=== PATIENT | male | born 1945 | race Caucasian/White ===

== ENCOUNTER → 2019-08-19 07:50 | Outpatient (CLI) | payer MEDICARE, SELFPAY ==
--- NOTE | 2019-08-19 07:52 | CT_ITS ---
PROCEDURE: CT LUNG SCREENING CLINICAL INDICATION: CURRENT TOBACO USE Nicotine dependence, COMPARISON: CXR CHEST(2 VIEWS-NOT PORTABLE) from 05/13/2013 TECHNIQUE: The exam was performed on a GE Light Speed [address] scanner using 2.90 mGy CTDI. A low dose helical CT CHEST was performed on a multi-detector scanner. All CT scans at the facility use one or more dose reduction, viz: automated exposure control, ma/kV adjustment per patient size (including targeted exams where dose is matched to indication, i.e. head), or iterative reconstruction technique. The LDCT was performed in a facility that meets the criteria for the screening program. Data regarding this exam was submitted to ACR which is an approved registry. The order for this exam indicates that it came as a result of a lung cancer screening counseling shard decision-making visit that included all the elements required of such a visit including smoking cessation. The radiologist interpreting this exam meets the CMS criteria for the LDCT lung cancer screening program. The exam is reported using the Lung-RADS classification scale and reported to the ACR registry. NOTE: This study was performed for the specific purposes of lung cancer screening and is not an alternative to diagnostic chest CT. RADIATION DOSE: CTDI vol(CT dose Index-volume) = 2.90mG DLP (Dose Length Product) = 110.2 mGcm FINDINGS: COPD with scattered areas of scarring. There is an oval 1.6 x 0.7 cm noncalcified nodule within the superior segment of the right lower lobe. The margins are somewhat irregular. This is near the pleural surface. 4 mm noncalcified nodules present in the left upper lobe laterally image number 39. 3 mm noncalcified nodule right upper lobe image number 21. There are few calcified nodules and 2 other 2 mm nodular opacities in the right lower lobe which are nonspecific. OTHER FINDINGS: Coronary artery calcifications. IMPRESSION: Lung rads category 4A, suspicious nodule within the superior segment of the right lower lobe. Recommend PET-CT for further evaluation. If that is not performed then, would at least suggest a [address] follow-up without and with contrast. Dictated by: Santi Lucero MD 08/19/2019 08:34 Electronically signed by Santi Lucero MD in [place] 08/23/2019 11:16
== END ==
PROVIDERS: PCP Internal Medicine Adolescent Medicine; Visit Provider Internal Medicine Adolescent Medicine
DX: Z87.891 Personal history of nicotine dependence (principal); Z12.2 Encounter for screening for malignant neoplasm of respiratory organs

== ENCOUNTER → 2019-10-13 12:41 | Outpatient (CLI) | payer MEDICARE, SELFPAY ==
--- NOTE | 2019-10-13 13:38 | RESP.PFTSS ---
PATIENT UNABLE TO PERFORM SPIROMETRY. DR. MICHELLE PEREZ'S OFFICE WAS NOTIFIED. SPOKE WITH LIANET ABOUT DIFFICULTIES PATIENT WAS HAVING.
== END ==
PROVIDERS: PCP Internal Medicine Adolescent Medicine; Visit Provider Thoracic Surgery (Cardiothoracic Vascular Surgery)
DX: R59.0 Localized enlarged lymph nodes (principal); R91.1 Solitary pulmonary nodule

== ENCOUNTER → 2019-11-08 09:31 | Outpatient (CLI) | payer MEDICARE, SELFPAY ==
[2019-11-08 09:46] LABS: Basophils % 0.4 % (0.1-2.0); Eosinophils # 0.1 K/mm3 (0.0-0.4); Eosinophils % 1.7 % (0.1-12.0); Hematocrit 41.3 % (42.0-52.0); Lymphocytes # 1.1 K/mm3 (0.7-4.5); Lymphocytes % 18.1 % (10-50); Mean Corpuscular HGB Conc 33.9 g/dL (31.8-35.4); Mean Corpuscular Hemoglobin 30.6 pg (27.0-31.2); Mean Corpuscular Volume 90.1 fl (80-94); Mean Platelet Volume 7.9 fl (7.4-10.4); Monocytes # 0.5 K/mm3 (0.1-1.0); Monocytes % 7.5 % (1.7-9.3); Neutrophils # 4.4 K/mm3 (1.8-7.8); Neutrophils % 72.3 % (37.0-80.0); Platelet Count 251 K/mm3 (142-424); Red Blood Count 4.58 M/mm3 (4.60-6.20); White Blood Count 6.1 K/mm3 (4.8-10.8)
--- NOTE | 2019-11-08 09:46 | MR_ITS ---
PROCEDURE: MR HEAD/BRAIN WO/W CON CLINICAL INDICATION: LUNG CANCER Lung cancer, evaluate metastatic disease COMPARISON: No exams were available for comparison TECHNIQUE: Routine multiplanar multi echo sequences are performed without and with gadolinium enhancement. FINDINGS: No midline shift, mass effect, intracranial hemorrhage, or hydrocephalus evident. There are scattered periventricular and subcortical T2 white matter hyperintensities. These are nonspecific. Most common etiology would include ischemic gliotic change from microvascular disease. Migraine headache or demyelinating process included in the differential diagnosis. No restricted diffusion. No enhancing lesions. The cerebellopontine angles, cerebellum, and brainstem are unremarkable. The pituitary, optic chiasm, and corpus callosum have an unremarkable appearance. There are degenerative changes in the upper cervical spine which are incompletely imaged on this study with degenerative disc disease and bulging disc at C3-C4 and C4-C5 with canal stenosis and impingement upon the cord anteriorly. No sinus air-fluid level or mastoid effusion. There is mild mucosal thickening of the right maxillary sinus and ethmoid sinuses. IMPRESSION: 1. No acute intracranial findings. No convincing evidence of metastatic disease 2. Nonspecific T2 white matter hyperintensities which may be due to periventricular ischemic gliotic change. 3. Cervical spondylosis with canal stenosis at C3-C4 and C4-C5 with impingement upon the cord. This is incompletely imaged and may be better evaluated with cervical spine MRI if clinically warranted Dictated by: Santi Lucero MD 11/09/2019 10:44 Electronically signed by Santi Lucero MD in [place] 11/09/2019 10:44
[2019-11-08 10:02] LABS: Chloride 97 mmol/L (98-107); Potassium 4.4 mmoL/L (3.5-5.1); Sodium 138 mmol/L (136-145)
[2019-11-08 10:05] LABS: Alanine Aminotransferase 30 U/L (12-78); Albumin Level 4.4 g/dl (3.5-5.0); Albumin/Globulin Ratio 1.4 (1.1-1.8); Alkaline Phosphatase 101 U/L (38-126); Anion Gap 12.4 mEq/L (5-15); Aspartate Amino Transferase 34 U/L (17-59); Bilirubin,Total 0.7 mg/dl (0.2-1.3); Blood Urea Nitrogen 17 mg/dl (9-20); Calcium 9.6 mg/dl (8.4-10.2); Carbon Dioxide 33 mmol/L (22.0-30.0); Estimated Glomerular Filt Rate 54 ml/min (>60); GFR (African American) 65 ML/MIN (>60); Globulin 3.2 g/dL (1.3-3.2); Glucose 119 mg/dl (74-100); Total Protein,Serum 7.6 g/dl (6.3-8.2)
--- NOTE | 2019-11-08 10:57 | CT_ITS ---
PROCEDURE: CT ABDOMEN PELVIS WO/W CON CLINICAL INDICATION: LUNG CANCER COMPARISON: No exams were available for comparison TECHNIQUE: IV Contrast: 75ML OPTIRAY 350 Oral Contrast 450ml Redicat Axial images obtained with sagittal and coronal reformats. All CT scans at the facility use one or more dose reduction, viz: automated exposure control, ma/kV adjustment per patient size (including targeted exams where dose is matched to indication, i.e. head), or iterative reconstruction technique. FINDINGS: Lower thoracic images show coronary artery calcification as well as calcification of the root of the aorta. There is an irregular masslike lesion in the right lung base posteriorly 2.5 cm suspicious for neoplasm. Please see chest CT report. There are post cholecystectomy changes. No liver lesions are evident. The spleen and adrenal glands have an unremarkable appearance. No renal or ureteral calculi. There is a small amount of contrast within the collecting systems on the unenhanced images which could be from test injection. There are some scattered small retroperitoneal lymph nodes which are nonspecific. There is an area of dense calcification involving the body of the pancreas without obvious associated mass. No intestinal obstruction or free air. No evidence of appendicitis or diverticulitis. No pelvic mass or abnormal fluid collection. There is a linear area of sclerosis in the right femoral neck which could be due to prior surgery. Please correlate with patient's history. There are degenerative changes in the lumbar spine. The no bony destructive process evident. IMPRESSION: 1. No convincing evidence of metastatic disease within the abdomen or pelvis. 2. There are scattered small retroperitoneal lymph nodes which are nonspecific. 3. Sclerotic lesion in the right femoral neck which could be due to prior core decompression. Please correlate with history 4. Right lower lobe mass suspicious for neoplasm the Dictated by: Santi Lucero MD 11/10/2019 09:04 Electronically signed by Santi Lucero MD in [place] 11/10/2019 09:04
--- NOTE | 2019-11-08 10:57 | CT_ITS ---
PROCEDURE: CT CHEST WO/W CON CLINCAL INDICATION: LUNG CANCER Follow-up lung cancer COMPARISON: CT LUNG SCREENING from 08/19/2019 CT ABDOMEN PELVIS WO/W CON from 11/08/2019 TECHNIQUE: IV Contrast: 75ml Optiray 350 Axial images obtained with sagittal and coronal reformats. All CT scans at the facility use one or more dose reduction, viz: automated exposure control, ma/kV adjustment per patient size (including targeted exams where dose is matched to indication, i.e. head), or iterative reconstruction technique. FINDINGS: HEART AND MEDIASTINAL STRUCTURES: There has been interval development of mediastinal and right hilar adenopathy. Subcarinal lymph node is present which measures 3 point 4 x 2.2 cm. Right hilar node is present which measures 1.4 cm. There is an additional node along the posterior aspect of the right hilum inferiorly at 1.3 cm. Coronary artery calcifications are present. No evidence of aortic aneurysm or pulmonary embolus. LUNGS AND PLEURAL SPACES: Centrilobular emphysema with scattered areas of scarring. Stable 3 mm nodule right apex image 17 series 4. Spiculated nodule in the superior segment of the right lower lobe has enlarged measuring 16 by 10 mm previously 14 by 7 mm. This is in the superior segment of the right lower lobe and a subpleural in nature. There is a new 5 mm nodule in the right lower lobe inferiorly image 57 series 4 and a new parenchymal opacity in the right lung base posteriorly at 2.5 by 1.3 cm. A stable 3 mm nodules present in the right lung base medially and posteriorly no suspicious nodules on the left. No pleural effusions BONY STRUCTURES: No acute bony abnormalities apparent. UPPER ABDOMEN: See abdomen report ADDITIONAL FINDINGS: No other significant abnormalities. IMPRESSION: 1. Interval development of mediastinal and right hilar adenopathy with enlarging nodule in the superior segment of the right lower lobe consistent with lung carcinoma with hilar adenopathy. There are new nodules in the right lower lobe which could represent metastatic lesions as well as a 2.5 x 1.4 cm parenchymal opacity in the right lung base posterior laterally which could represent a metastatic focus. This could also be due to an inflammatory slow/infectious process as this was not present on 08/19/2019. Please correlate with patient's recent biopsy. 2. Centrilobular emphysema with COPD Dictated by: Santi Lucero MD 11/10/2019 08:52 Electronically signed by Santi Lucero MD in [place] 11/10/2019 08:52
== END ==
PROVIDERS: PCP Internal Medicine Adolescent Medicine; Visit Provider Internal Medicine Medical Oncology
DX: C34.31 Malignant neoplasm of lower lobe, right bronchus or lung (principal); Z03.89 Encounter for observation for other suspected diseases and conditions ruled out
CPT/HCPCS: 36415; 70553; 71270; 74178; 80053; 85025; A9576; Q9967

== ENCOUNTER → 2019-11-14 09:33 | Outpatient (CLI) | payer MEDICARE, SELFPAY ==
[2019-11-14] VITALS (8 sets, daily range): BP systolic 128–143; BP diastolic 70–84; PULSE 61–72; RESP 20; TEMP 36.7–36.9; O2SAT 90–95
== END ==
PROVIDERS: Visit Provider Internal Medicine Medical Oncology
DX: Z51.11 Encounter for antineoplastic chemotherapy (principal); C34.91 Malignant neoplasm of unspecified part of right bronchus or lung
CPT/HCPCS: 96413; 96415; 96417; J1642; J8501; J9045; J9181; Q0166

== ENCOUNTER 2019-11-15 09:34 | Outpatient (CLI) | payer MEDICARE, SELFPAY ==
[2019-11-15] VITALS (7 sets, daily range): BP systolic 117–157; BP diastolic 66–91; PULSE 59–66; RESP 18; TEMP 36.8; O2SAT 95
== END 2019-11-15 11:58 | disposition home or self-care (01) ==
LOC: INF 09:34
PROVIDERS: Visit Provider Internal Medicine Medical Oncology
DX: Z51.11 Encounter for antineoplastic chemotherapy (principal); C34.91 Malignant neoplasm of unspecified part of right bronchus or lung
CPT/HCPCS: 96413; 96415; J1642; J9181; Q0166

== ENCOUNTER 2019-11-16 09:25 | Outpatient (CLI) | payer MEDICARE, SELFPAY ==
[2019-11-16] VITALS (7 sets, daily range): BP systolic 132–155; BP diastolic 71–85; PULSE 53–60; RESP 18; TEMP 36.9; O2SAT 96
== END 2019-11-16 12:00 | disposition home or self-care (01) ==
LOC: INF 09:34
PROVIDERS: Visit Provider Internal Medicine Medical Oncology
DX: Z51.11 Encounter for antineoplastic chemotherapy (principal); C34.91 Malignant neoplasm of unspecified part of right bronchus or lung
CPT/HCPCS: 96413; 96415; J1642; J9181; Q0166

== ENCOUNTER 2019-11-25 09:02 | Outpatient (CLI) | payer MEDICARE, SELFPAY ==
[2019-11-25 08:59] VITALS: BMI 22.6
[2019-11-25 09:09] LABS: Basophils % 0.4 % (0.1-2.0); Eosinophils % 2.6 % (0.1-12.0); Hematocrit 37.3 % (42.0-52.0); Hemoglobin 12.5 g/dL (14.1-18.0); Lymphocytes # 0.9 K/mm3 (0.7-4.5); Lymphocytes % 53.5 % (10-50); Mean Corpuscular HGB Conc 33.6 g/dL (31.8-35.4); Mean Corpuscular Hemoglobin 30.4 pg (27.0-31.2); Mean Corpuscular Volume 90.5 fl (80-94); Mean Platelet Volume 8.2 fl (7.4-10.4); Monocytes # 0.1 K/mm3 (0.1-1.0); Monocytes % 4.7 % (1.7-9.3); Neutrophils # 0.7 K/mm3 (1.8-7.8); Neutrophils % 38.8 % (37.0-80.0); Platelet Count 88 K/mm3 (142-424); Red Blood Count 4.12 M/mm3 (4.60-6.20); Red Cell Distribution Width 12.3 % (11.5-17.5); White Blood Count 1.7 K/mm3 (4.8-10.8)
[2019-11-25 09:16] LABS: MANUAL DIFFERENTIAL MANUAL DIFFERENTIAL (MANUAL DIFF)
[2019-11-25 09:19] LABS: Alanine Aminotransferase 34 U/L (12-78); Albumin/Globulin Ratio 1.5 (1.1-1.8); Alkaline Phosphatase 108 U/L (38-126); Aspartate Amino Transferase 27 U/L (17-59); Bilirubin,Total 0.6 mg/dl (0.2-1.3); Blood Urea Nitrogen 25 mg/dl (9-20); Calcium 8.8 mg/dl (8.4-10.2); Creatinine Clearance Estimated 57 mL/min (50-200); Estimated Glomerular Filt Rate 73 ml/min (>60); GFR (African American) 88 ML/MIN (>60); Globulin 2.7 g/dL (1.3-3.2); Glucose 121 mg/dl (74-100); Total Protein,Serum 6.7 g/dl (6.3-8.2)
[2019-11-25 09:30] LABS: Eosinophils % 2 % (0-3); Lymphocytes % 48 % (10-50); Monocytes % 5 % (2-9); Neutrophils % 38 % (42-76); Total Cells Counted 100
[2019-11-25 09:31] LABS: Platelet Estimate Marked Decrease; RBC Morphology Normal
[2019-11-25 09:54] LABS: Anion Gap 9.8 mEq/L (5-15); Carbon Dioxide 29 mmol/L (22.0-30.0); Chloride 103 mmol/L (98-107); Potassium 3.8 mmoL/L (3.5-5.1); Sodium 138 mmol/L (136-145)
== END 2019-11-25 09:40 | disposition home or self-care (01) ==
LOC: INF 09:02
PROVIDERS: Visit Provider Internal Medicine Medical Oncology
DX: Z45.2 Encounter for adjustment and management of vascular access device (principal); C34.90 Malignant neoplasm of unspecified part of unspecified bronchus or lung
CPT/HCPCS: 80053; 85007; 85025; J1642

== ENCOUNTER 2019-12-05 09:02 | Outpatient (CLI) | payer MEDICARE, SELFPAY ==
[2019-12-05] VITALS (10 sets, daily range): BP systolic 142–165; BP diastolic 70–90; PULSE 60–93; RESP 18; TEMP 36.2; O2SAT 95–96; BMI 23.1
[2019-12-05 09:33] LABS: Basophils % 0.5 % (0.1-2.0); Hematocrit 35.3 % (42.0-52.0); Lymphocytes % 31.9 % (10-50); Mean Corpuscular HGB Conc 34.1 g/dL (31.8-35.4); Mean Corpuscular Hemoglobin 30.4 pg (27.0-31.2); Mean Corpuscular Volume 89.2 fl (80-94); Mean Platelet Volume 8.1 fl (7.4-10.4); Monocytes # 0.4 K/mm3 (0.1-1.0); Neutrophils # 1.6 K/mm3 (1.8-7.8); Neutrophils % 54.5 % (37.0-80.0); Platelet Count 383 K/mm3 (142-424); Red Blood Count 3.95 M/mm3 (4.60-6.20); Red Cell Distribution Width 12.9 % (11.5-17.5)
== END 2019-12-05 14:00 | disposition home or self-care (01) ==
LOC: INF 09:02
PROVIDERS: Visit Provider Internal Medicine Medical Oncology
DX: Z51.11 Encounter for antineoplastic chemotherapy (principal); C34.91 Malignant neoplasm of unspecified part of right bronchus or lung
CPT/HCPCS: 85025; 96413; 96415; 96417; J1642; J8501; J9022; J9045; J9181; Q0166

== ENCOUNTER 2019-12-06 08:57 | Outpatient (CLI) | payer MEDICARE, SELFPAY ==
[2019-12-06 09:09] VITALS: BP 130/68; PULSE 82; RESP 18; TEMP 36.8; O2SAT 95
[2019-12-06 09:44] VITALS: BP 141/72; PULSE 76; RESP 18; O2SAT 95
[2019-12-06 10:14] VITALS: BP 141/66; PULSE 66; RESP 18; O2SAT 96
[2019-12-06 10:44] VITALS: BP 150/76; PULSE 67; RESP 18; O2SAT 95
[2019-12-06 11:14] VITALS: BP 148/77; PULSE 64; RESP 18; O2SAT 96
[2019-12-06 11:35] VITALS: BP 135/67; PULSE 65; RESP 18; O2SAT 96
== END 2019-12-06 11:35 | disposition home or self-care (01) ==
LOC: INF 08:57
PROVIDERS: Visit Provider Internal Medicine Medical Oncology
DX: Z51.11 Encounter for antineoplastic chemotherapy (principal); C34.91 Malignant neoplasm of unspecified part of right bronchus or lung
CPT/HCPCS: 96413; 96415; J1642; J9181; Q0166

== ENCOUNTER 2019-12-07 09:02 | Outpatient (CLI) | payer MEDICARE, SELFPAY ==
[2019-12-07 09:08] VITALS: BP 147/66; PULSE 61; RESP 18; TEMP 36.1; O2SAT 100
[2019-12-07 09:37] VITALS: BP 131/80; PULSE 53; RESP 18; O2SAT 99
[2019-12-07 10:07] VITALS: BP 140/65; PULSE 48; RESP 18; O2SAT 99
[2019-12-07 10:37] VITALS: BP 144/72; PULSE 49; RESP 18; O2SAT 98
[2019-12-07 11:07] VITALS: BP 159/88; PULSE 57; RESP 18; O2SAT 99
[2019-12-07 11:24] VITALS: BP 151/72; PULSE 51; RESP 18; O2SAT 99
== END 2019-12-07 11:24 | disposition home or self-care (01) ==
LOC: INF 09:02
PROVIDERS: Visit Provider Internal Medicine Medical Oncology
DX: Z51.11 Encounter for antineoplastic chemotherapy (principal); C34.91 Malignant neoplasm of unspecified part of right bronchus or lung
CPT/HCPCS: 96413; 96415; J1642; J9181; Q0166

== ENCOUNTER 2019-12-22 09:15 | Outpatient (CLI) | payer MEDICARE, SELFPAY ==
[2019-12-22 09:26] VITALS: BMI 21.5
[2019-12-22 09:40] VITALS: TEMP 36.5
[2019-12-22 10:01] LABS: Basophils % 0.3 % (0.1-2.0); Eosinophils % 0.5 % (0.1-12.0); Hematocrit 32.8 % (42.0-52.0); Hemoglobin 10.8 g/dL (14.1-18.0); Lymphocytes # 0.9 K/mm3 (0.7-4.5); Lymphocytes % 60.8 % (10-50); Mean Corpuscular HGB Conc 32.9 g/dL (31.8-35.4); Mean Corpuscular Hemoglobin 29.4 pg (27.0-31.2); Mean Corpuscular Volume 89.4 fl (80-94); Mean Platelet Volume 8.5 fl (7.4-10.4); Monocytes # 0.3 K/mm3 (0.1-1.0); Monocytes % 21.6 % (1.7-9.3); Neutrophils # 0.3 K/mm3 (1.8-7.8); Neutrophils % 16.9 % (37.0-80.0); Platelet Count 131 K/mm3 (142-424); Red Blood Count 3.67 M/mm3 (4.60-6.20); Red Cell Distribution Width 13.8 % (11.5-17.5); White Blood Count 1.5 K/mm3 (4.8-10.8)
[2019-12-22 10:05] LABS: MANUAL DIFFERENTIAL MANUAL DIFFERENTIAL (MANUAL DIFF)
[2019-12-22 10:07] LABS: Chloride 99 mmol/L (98-107); Potassium 4.2 mmoL/L (3.5-5.1); Sodium 137 mmol/L (136-145)
[2019-12-22 10:10] LABS: Alanine Aminotransferase 34 U/L (12-78); Albumin Level 3.9 g/dl (3.5-5.0); Albumin/Globulin Ratio 1.4 (1.1-1.8); Alkaline Phosphatase 131 U/L (38-126); Anion Gap 13.2 mEq/L (5-15); Aspartate Amino Transferase 25 U/L (17-59); Bilirubin,Total 0.4 mg/dl (0.2-1.3); Blood Urea Nitrogen 17 mg/dl (9-20); Carbon Dioxide 29 mmol/L (22.0-30.0); Creatinine Clearance Estimated 55 mL/min (50-200); Estimated Glomerular Filt Rate 73 ml/min (>60); GFR (African American) 88 ML/MIN (>60); Globulin 2.8 g/dL (1.3-3.2); Total Protein,Serum 6.7 g/dl (6.3-8.2)
[2019-12-22 10:11] LABS: Calcium 9.1 mg/dl (8.4-10.2); Glucose 117 mg/dl (74-100)
[2019-12-22 10:28] LABS: Lymphocytes % 56 % (10-50); Monocytes % 4 % (2-9); Neutrophils % 14 % (42-76); Total Cells Counted 50
[2019-12-22 10:29] LABS: Hypochromasia 1+
[2019-12-22 10:30] LABS: Platelet Estimate Marked Decrease
[2019-12-22 10:40] LABS: Thyroid Stimulating Hormone 1.17 uIU/mL (0.465-4.68)
[2019-12-23 15:16] LABS: Adrenocorticotropic Hormone 12.6 pg/mL (7.2-63.3)
== END 2019-12-22 10:15 | disposition home or self-care (01) ==
LOC: INF 09:19
PROVIDERS: Visit Provider Internal Medicine Medical Oncology
DX: C34.91 Malignant neoplasm of unspecified part of right bronchus or lung (principal); Z45.2 Encounter for adjustment and management of vascular access device; Z79.899 Other long term (current) drug therapy; Z87.891 Personal history of nicotine dependence
CPT/HCPCS: 80053; 82024; 82533; 84443; 85007; 85025; J1642

== ENCOUNTER 2020-01-02 08:56 | Outpatient (CLI) | payer MEDICARE, SELFPAY ==
[2020-01-02] VITALS (9 sets, daily range): BP systolic 114–142; BP diastolic 71–74; PULSE 68–78; RESP 20; TEMP 36.7–36.9; O2SAT 95–98; BMI 22.3
[2020-01-02 09:13] LABS: Basophils # 0.1 K/mm3 (0-0.2); Basophils % 1.2 % (0.1-2.0); Chloride 101 mmol/L (98-107); Eosinophils % 0.1 % (0.1-12.0); Hematocrit 33.5 % (42.0-52.0); Hemoglobin 11.3 g/dL (14.1-18.0); Lymphocytes # 1.3 K/mm3 (0.7-4.5); Lymphocytes % 14.1 % (10-50); Mean Corpuscular HGB Conc 33.8 g/dL (31.8-35.4); Mean Corpuscular Hemoglobin 30.2 pg (27.0-31.2); Mean Corpuscular Volume 89.4 fl (80-94); Mean Platelet Volume 7.9 fl (7.4-10.4); Monocytes # 0.7 K/mm3 (0.1-1.0); Monocytes % 7.5 % (1.7-9.3); Neutrophils # 7.1 K/mm3 (1.8-7.8); Platelet Count 402 K/mm3 (142-424); Red Blood Count 3.75 M/mm3 (4.60-6.20); Red Cell Distribution Width 14.4 % (11.5-17.5); Sodium 137 mmol/L (136-145); White Blood Count 9.2 K/mm3 (4.8-10.8)
[2020-01-02 09:14] LABS: Potassium 4.3 mmoL/L (3.5-5.1)
[2020-01-02 09:16] LABS: Albumin/Globulin Ratio 1.4 (1.1-1.8); Alkaline Phosphatase 151 U/L (38-126); Anion Gap 11.3 mEq/L (5-15); Bilirubin,Total 0.4 mg/dl (0.2-1.3); Blood Urea Nitrogen 16 mg/dl (9-20); Calcium 9.2 mg/dl (8.4-10.2); Carbon Dioxide 29 mmol/L (22.0-30.0); Creatinine Clearance Estimated 46 mL/min (50-200); Estimated Glomerular Filt Rate 59 ml/min (>60); GFR (African American) 71 ML/MIN (>60); Globulin 2.8 g/dL (1.3-3.2); Glucose 119 mg/dl (74-100); Total Protein,Serum 6.8 g/dl (6.3-8.2)
[2020-01-02 09:17] LABS: Alanine Aminotransferase 21 U/L (12-78); Aspartate Amino Transferase 30 U/L (17-59)
== END 2020-01-02 13:35 | disposition home or self-care (01) ==
LOC: INF 08:56
PROVIDERS: Visit Provider Internal Medicine Medical Oncology
DX: Z51.11 Encounter for antineoplastic chemotherapy (principal); C34.31 Malignant neoplasm of lower lobe, right bronchus or lung
CPT/HCPCS: 80053; 85025; 96413; 96415; 96417; J1642; J8501; J9022; J9045; J9181; Q0166

== ENCOUNTER 2020-01-03 08:59 | Outpatient (CLI) | payer MEDICARE, SELFPAY ==
[2020-01-03] VITALS (7 sets, daily range): BP systolic 109–135; BP diastolic 57–73; PULSE 52–67; RESP 18; TEMP 36.6; O2SAT 97–98
== END 2020-01-03 11:28 | disposition home or self-care (01) ==
LOC: INF 08:59
PROVIDERS: Visit Provider Internal Medicine Medical Oncology
DX: Z51.11 Encounter for antineoplastic chemotherapy (principal); C34.31 Malignant neoplasm of lower lobe, right bronchus or lung
CPT/HCPCS: 96413; 96415; J1642; J9181; Q0166

== ENCOUNTER 2020-01-04 09:03 | Outpatient (CLI) | payer MEDICARE, SELFPAY ==
[2020-01-04] VITALS (8 sets, daily range): BP systolic 119–154; BP diastolic 64–90; PULSE 49–73; RESP 18–20; TEMP 36.4; O2SAT 98
== END 2020-01-04 11:35 | disposition home or self-care (01) ==
LOC: INF 09:03
PROVIDERS: Visit Provider Internal Medicine Medical Oncology
DX: Z51.11 Encounter for antineoplastic chemotherapy (principal); C34.31 Malignant neoplasm of lower lobe, right bronchus or lung
CPT/HCPCS: 96413; 96415; J1642; J9181; Q0166

== ENCOUNTER 2020-01-16 09:04 | Outpatient (CLI) | payer MEDICARE, SELFPAY ==
[2020-01-16 08:31] VITALS: BMI 21.6
[2020-01-16 08:49] LABS: Basophils % 0.8 % (0.1-2.0); Eosinophils % 2.9 % (0.1-12.0); Hematocrit 30.6 % (42.0-52.0); Hemoglobin 10.2 g/dL (14.1-18.0); Lymphocytes # 0.7 K/mm3 (0.7-4.5); Lymphocytes % 67.5 % (10-50); Mean Corpuscular HGB Conc 33.4 g/dL (31.8-35.4); Mean Corpuscular Hemoglobin 29.8 pg (27.0-31.2); Mean Corpuscular Volume 89.3 fl (80-94); Mean Platelet Volume 8.9 fl (7.4-10.4); Monocytes # 0.1 K/mm3 (0.1-1.0); Monocytes % 12.5 % (1.7-9.3); Neutrophils # 0.2 K/mm3 (1.8-7.8); Neutrophils % 16.4 % (37.0-80.0); Platelet Count 67 K/mm3 (142-424); Red Blood Count 3.42 M/mm3 (4.60-6.20); Red Cell Distribution Width 14.7 % (11.5-17.5)
[2020-01-16 08:53] LABS: MANUAL DIFFERENTIAL MANUAL DIFFERENTIAL (MANUAL DIFF)
[2020-01-16 09:02] LABS: Chloride 99 mmol/L (98-107); Potassium 4.1 mmoL/L (3.5-5.1); Sodium 135 mmol/L (136-145)
[2020-01-16 09:04] LABS: Blood Urea Nitrogen 20 mg/dl (9-20); Creatinine Clearance Estimated 55 mL/min (50-200); Estimated Glomerular Filt Rate 73 ml/min (>60); GFR (African American) 88 ML/MIN (>60)
[2020-01-16 09:05] LABS: Alanine Aminotransferase 51 U/L (12-78); Albumin Level 4.1 g/dl (3.5-5.0); Albumin/Globulin Ratio 1.5 (1.1-1.8); Alkaline Phosphatase 150 U/L (38-126); Anion Gap 11.1 mEq/L (5-15); Aspartate Amino Transferase 33 U/L (17-59); Bilirubin,Total 0.4 mg/dl (0.2-1.3); Carbon Dioxide 29 mmol/L (22.0-30.0); Globulin 2.8 g/dL (1.3-3.2); Glucose 129 mg/dl (74-100); Total Protein,Serum 6.9 g/dl (6.3-8.2)
--- NOTE | 2020-01-16 09:08 | CT_ITS ---
PROCEDURE: CT ABDOMEN PELVIS W CON CLINICAL INDICATION: LUNG CA Follow-up lung cancer COMPARISON: CT ABDOMEN PELVIS WO/W CON from 11/08/2019 TECHNIQUE: IV Contrast: 75ML OPTIRAY 350 Oral Contrast 450ml Redicat Axial images obtained with sagittal and coronal reformats. All CT scans at the facility use one or more dose reduction, viz: automated exposure control, ma/kV adjustment per patient size (including targeted exams where dose is matched to indication, i.e. head), or iterative reconstruction technique. FINDINGS: LOWER THORAX: There are coronary artery calcifications present ABDOMEN & PELVIS: Prior cholecystectomy. The liver, spleen, adrenal glands have an unremarkable appearance. No renal or ureteral calculi. There is a coarse calcification in the body of the pancreas which is not significantly changed. No intestinal obstruction or free air is evident. There is a mild amount of retained colonic feces. No evidence of appendicitis or diverticulitis. There are scattered diverticula within the colon. No intra-abdominal or pelvic mass or adenopathy. There is sclerosis in the right femoral neck once again noted. No bony destructive process. IMPRESSION: Overall no change with no acute finding. No convincing evidence of metastatic disease. Dictated by: Santi Lucero MD 01/17/2020 13:31 Electronically signed by Santi Lucero MD in [place] 01/17/2020 13:31
--- NOTE | 2020-01-16 09:08 | CT_ITS ---
PROCEDURE: CT CHEST W CON CLINCAL INDICATION: LUNG CA Follow-up lung cancer COMPARISON: CT CHEST WO/W CON from 11/08/2019 CT ABDOMEN PELVIS W CON from 01/16/2020 TECHNIQUE: IV Contrast: 75ml Optiray 350 Axial images obtained with sagittal and coronal reformats. All CT scans at the facility use one or more dose reduction, viz: automated exposure control, ma/kV adjustment per patient size (including targeted exams where dose is matched to indication, i.e. head), or iterative reconstruction technique. FINDINGS: HEART AND MEDIASTINAL STRUCTURES: Right hilar and mediastinal adenopathy has improved. No enlarged nodes are evident at this time. No hilar mass or mediastinal adenopathy. LUNGS AND PLEURAL SPACES: COPD. There is a 4 mm nodule in the right lung base which has not significantly changed. Previously noted parenchymal opacity in the right posterior costophrenic sulcus has nearly resolved with only mint some minimal parenchymal opacity in this region. There is a 4 mm nodule in the right lower lobe posteriorly image number 62 unchanged. Previously noted nodule posterior to the right lower lobe bronchus in the right lower lobe has decreased in size previously measuring 13 mm not apparent on today's exam. There is a residual nodular opacity in the superior segment of the right lower lobe which measures 6 mm previously measuring 11 mm. There is a 3 mm nodule in the left upper lobe centrally not significantly changed axial image number 32. No new nodules are evident. No effusions or infiltrates. BONY STRUCTURES: No acute bony abnormalities apparent. UPPER ABDOMEN: Unremarkable. ADDITIONAL FINDINGS: No other significant abnormalities. IMPRESSION: 1. Overall improvement in the mediastinal and hilar adenopathy and multiple pulmonary nodules consistent with improvement in the neoplasm.. 2. No new nodules evident. 3. COPD Dictated by: Santi Lucero MD 01/17/2020 13:21 Electronically signed by Santi Lucero MD in [place] 01/17/2020 13:21
[2020-01-16 09:12] LABS: Lymphocytes % 56 % (10-50); Monocytes % 32 % (2-9); Neutrophils % 12 % (42-76); Platelet Estimate Marked Decrease; RBC Morphology Normal; Total Cells Counted 25
== END 2020-01-16 10:35 | disposition home or self-care (01) ==
LOC: INF 09:05
PROVIDERS: PCP Internal Medicine Adolescent Medicine; Visit Provider Internal Medicine Medical Oncology
DX: C34.91 Malignant neoplasm of unspecified part of right bronchus or lung (principal)
CPT/HCPCS: 36415; 71260; 74177; 80053; 85007; 85025; J1642; Q9967

== ENCOUNTER 2020-01-31 09:01 | Outpatient (CLI) | payer MEDICARE, SELFPAY ==
[2020-01-31] VITALS (9 sets, daily range): BP systolic 125–163; BP diastolic 69–86; PULSE 55–83; RESP 18; TEMP 36.4; O2SAT 97–98; BMI 26.9
[2020-01-31 09:19] LABS: Basophils % 0.7 % (0.1-2.0); Eosinophils % 0.3 % (0.1-12.0); Hematocrit 32.6 % (42.0-52.0); Hemoglobin 10.9 g/dL (14.1-18.0); Lymphocytes % 16.5 % (10-50); Mean Corpuscular HGB Conc 33.5 g/dL (31.8-35.4); Mean Corpuscular Hemoglobin 30.9 pg (27.0-31.2); Mean Corpuscular Volume 92.1 fl (80-94); Mean Platelet Volume 7.9 fl (7.4-10.4); Monocytes # 0.4 K/mm3 (0.1-1.0); Monocytes % 7.7 % (1.7-9.3); Neutrophils # 4.3 K/mm3 (1.8-7.8); Neutrophils % 74.8 % (37.0-80.0); Platelet Count 262 K/mm3 (142-424); Red Blood Count 3.54 M/mm3 (4.60-6.20); Red Cell Distribution Width 14.9 % (11.5-17.5); White Blood Count 5.8 K/mm3 (4.8-10.8)
== END 2020-01-31 13:50 | disposition home or self-care (01) ==
LOC: INF 09:01
PROVIDERS: Visit Provider Internal Medicine Medical Oncology
DX: Z51.11 Encounter for antineoplastic chemotherapy (principal); C34.31 Malignant neoplasm of lower lobe, right bronchus or lung
CPT/HCPCS: 85025; 96413; 96415; 96417; J1642; J8501; J9022; J9045; J9181; Q0166

== ENCOUNTER 2020-02-01 08:53 | Outpatient (CLI) | payer MEDICARE, SELFPAY ==
[2020-02-01 08:58] VITALS: BP 122/67; PULSE 69; RESP 18; TEMP 36.8; O2SAT 98
[2020-02-01 09:35] VITALS: BP 121/60; PULSE 62; RESP 18; O2SAT 97
[2020-02-01 10:05] VITALS: BP 119/65; PULSE 57; RESP 18; O2SAT 98
[2020-02-01 10:35] VITALS: BP 130/67; PULSE 52; RESP 18; O2SAT 97
[2020-02-01 11:15] VITALS: BP 144/73; PULSE 57; RESP 18; O2SAT 98
== END 2020-02-01 11:20 | disposition home or self-care (01) ==
LOC: INF 08:53
PROVIDERS: Visit Provider Internal Medicine Medical Oncology
DX: Z51.11 Encounter for antineoplastic chemotherapy (principal); C34.91 Malignant neoplasm of unspecified part of right bronchus or lung
CPT/HCPCS: 96413; 96415; J1642; J9181; Q0166

== ENCOUNTER 2020-02-02 08:55 | Outpatient (CLI) | payer MEDICARE, SELFPAY ==
[2020-02-02 09:38] VITALS: BP 138/71; PULSE 48; RESP 18; O2SAT 96
[2020-02-02 10:00] VITALS: BP 134/79; PULSE 47; RESP 18
[2020-02-02 10:30] VITALS: BP 171/98; PULSE 52; RESP 18
[2020-02-02 11:25] VITALS: BP 158/81; PULSE 49; RESP 18
== END 2020-02-02 11:25 | disposition home or self-care (01) ==
LOC: INF 09:00
PROVIDERS: Visit Provider Internal Medicine Medical Oncology
DX: Z51.11 Encounter for antineoplastic chemotherapy (principal); C34.31 Malignant neoplasm of lower lobe, right bronchus or lung
CPT/HCPCS: 96413; 96415; J1642; J9181; Q0166

== ENCOUNTER 2020-02-23 08:29 | Outpatient (CLI) | payer MEDICARE, SELFPAY ==
[2020-02-23 08:34] VITALS: BMI 21.6
[2020-02-23 09:03] LABS: Basophils % 0.2 % (0.1-2.0); Eosinophils % 0.3 % (0.1-12.0); Hematocrit 27.7 % (42.0-52.0); Hemoglobin 9.5 g/dL (14.1-18.0); Lymphocytes % 16.8 % (10-50); Mean Corpuscular HGB Conc 34.4 g/dL (31.8-35.4); Mean Corpuscular Hemoglobin 31.5 pg (27.0-31.2); Mean Corpuscular Volume 91.4 fl (80-94); Mean Platelet Volume 8.1 fl (7.4-10.4); Monocytes # 0.5 K/mm3 (0.1-1.0); Monocytes % 7.9 % (1.7-9.3); Neutrophils # 4.3 K/mm3 (1.8-7.8); Neutrophils % 74.7 % (37.0-80.0); Platelet Count 369 K/mm3 (142-424); Red Blood Count 3.03 M/mm3 (4.60-6.20); Red Cell Distribution Width 15.1 % (11.5-17.5); White Blood Count 5.7 K/mm3 (4.8-10.8)
[2020-02-23 09:05] LABS: Chloride 101 mmol/L (98-107); Sodium 136 mmol/L (136-145)
[2020-02-23 09:08] LABS: Alanine Aminotransferase 17 U/L (12-78); Albumin Level 3.7 g/dl (3.5-5.0); Albumin/Globulin Ratio 1.3 (1.1-1.8); Alkaline Phosphatase 146 U/L (38-126); Aspartate Amino Transferase 25 U/L (17-59); Bilirubin,Total 0.4 mg/dl (0.2-1.3); Blood Urea Nitrogen 15 mg/dl (9-20); Calcium 8.7 mg/dl (8.4-10.2); Carbon Dioxide 30 mmol/L (22.0-30.0); Creatinine Clearance Estimated 50 mL/min (50-200); Estimated Glomerular Filt Rate 65 ml/min (>60); GFR (African American) 79 ML/MIN (>60); Globulin 2.9 g/dL (1.3-3.2); Glucose 122 mg/dl (74-100); Total Protein,Serum 6.6 g/dl (6.3-8.2)
[2020-02-23 09:39] LABS: Thyroid Stimulating Hormone 1.55 uIU/mL (0.465-4.68)
[2020-02-23 10:26] VITALS: BP 141/79; PULSE 78; RESP 18; TEMP 36.8; O2SAT 98
[2020-02-23 10:56] VITALS: BP 152/80; PULSE 69; RESP 18; O2SAT 98
[2020-02-23 11:26] VITALS: BP 154/79; PULSE 63; RESP 18; O2SAT 97
[2020-02-23 11:32] VITALS: BP 144/84; PULSE 67; RESP 18; O2SAT 97
[2020-02-25 10:52] LABS: Adrenocorticotropic Hormone 13.8
== END 2020-02-23 11:32 | disposition home or self-care (01) ==
LOC: INF 08:29
PROVIDERS: Visit Provider Internal Medicine Medical Oncology
DX: Z51.11 Encounter for antineoplastic chemotherapy (principal); C34.31 Malignant neoplasm of lower lobe, right bronchus or lung; Z79.899 Other long term (current) drug therapy
CPT/HCPCS: 80053; 82024; 82533; 84443; 85025; 96413; J1642; J9022

== ENCOUNTER 2020-03-15 10:17 | Outpatient (CLI) | payer MEDICARE, SELFPAY ==
[2020-03-15 10:19] VITALS: BMI 21.4
[2020-03-15 10:44] LABS: Basophils % 0.5 % (0.1-2.0); Eosinophils # 0.1 K/mm3 (0.0-0.4); Eosinophils % 1.9 % (0.1-12.0); Hematocrit 31.8 % (42.0-52.0); Hemoglobin 10.7 g/dL (14.1-18.0); Lymphocytes # 1.2 K/mm3 (0.7-4.5); Lymphocytes % 19.2 % (10-50); Mean Corpuscular HGB Conc 33.8 g/dL (31.8-35.4); Mean Corpuscular Hemoglobin 31.6 pg (27.0-31.2); Mean Corpuscular Volume 93.7 fl (80-94); Mean Platelet Volume 8.6 fl (7.4-10.4); Monocytes # 0.5 K/mm3 (0.1-1.0); Monocytes % 7.8 % (1.7-9.3); Neutrophils # 4.4 K/mm3 (1.8-7.8); Neutrophils % 70.6 % (37.0-80.0); Platelet Count 243 K/mm3 (142-424); Red Cell Distribution Width 14.2 % (11.5-17.5); White Blood Count 6.3 K/mm3 (4.8-10.8)
[2020-03-15 10:53] LABS: Chloride 101 mmol/L (98-107)
[2020-03-15 10:54] LABS: Potassium 4.3 mmoL/L (3.5-5.1); Sodium 135 mmol/L (136-145)
[2020-03-15 10:56] LABS: Alanine Aminotransferase 15 U/L (12-78); Albumin/Globulin Ratio 1.5 (1.1-1.8); Alkaline Phosphatase 128 U/L (38-126); Anion Gap 9.3 mEq/L (5-15); Aspartate Amino Transferase 24 U/L (17-59); Bilirubin,Total 0.6 mg/dl (0.2-1.3); Blood Urea Nitrogen 20 mg/dl (9-20); Carbon Dioxide 29 mmol/L (22.0-30.0); Creatinine Clearance Estimated 45 mL/min (50-200); Estimated Glomerular Filt Rate 59 ml/min (>60); GFR (African American) 71 ML/MIN (>60); Globulin 2.6 g/dL (1.3-3.2); Total Protein,Serum 6.6 g/dl (6.3-8.2)
[2020-03-15 10:57] LABS: Calcium 9.1 mg/dl (8.4-10.2); Glucose 111 mg/dl (74-100)
[2020-03-15 11:27] LABS: Thyroid Stimulating Hormone 2.16 uIU/mL (0.465-4.68)
[2020-03-15 11:51] VITALS: BP 114/72; PULSE 65; RESP 18; TEMP 36.2; O2SAT 98
[2020-03-15 12:21] VITALS: BP 117/79; PULSE 69; RESP 18; O2SAT 97
[2020-03-15 13:02] VITALS: BP 120/75; PULSE 63; RESP 18; O2SAT 98
== END 2020-03-15 13:02 | disposition home or self-care (01) ==
LOC: INF 10:17
PROVIDERS: Visit Provider Internal Medicine Medical Oncology
DX: Z51.11 Encounter for antineoplastic chemotherapy (principal); C34.90 Malignant neoplasm of unspecified part of unspecified bronchus or lung; Z79.899 Other long term (current) drug therapy
CPT/HCPCS: 80053; 82024; 82533; 84443; 85025; 96413; J1642; J9022

== ENCOUNTER 2020-04-06 09:57 | Outpatient (CLI) | payer MEDICARE, SELFPAY ==
[2020-04-06 10:17] LABS: Basophils % 0.4 % (0.1-2.0); Eosinophils # 0.1 K/mm3 (0.0-0.4); Hemoglobin 11.5 g/dL (14.1-18.0); Lymphocytes # 1.3 K/mm3 (0.7-4.5); Lymphocytes % 21.5 % (10-50); Mean Corpuscular HGB Conc 33.9 g/dL (31.8-35.4); Mean Corpuscular Hemoglobin 31.3 pg (27.0-31.2); Mean Corpuscular Volume 92.5 fl (80-94); Mean Platelet Volume 8.5 fl (7.4-10.4); Monocytes # 0.5 K/mm3 (0.1-1.0); Monocytes % 8.1 % (1.7-9.3); Neutrophils # 4.1 K/mm3 (1.8-7.8); Neutrophils % 68.1 % (37.0-80.0); Platelet Count 226 K/mm3 (142-424); Red Blood Count 3.67 M/mm3 (4.60-6.20); Red Cell Distribution Width 13.2 % (11.5-17.5); White Blood Count 6.1 K/mm3 (4.8-10.8)
[2020-04-06 10:19] LABS: Chloride 98 mmol/L (98-107); Potassium 4.4 mmoL/L (3.5-5.1); Sodium 137 mmol/L (136-145)
[2020-04-06 10:21] LABS: Blood Urea Nitrogen 16 mg/dl (9-20)
[2020-04-06 10:22] LABS: Alanine Aminotransferase 25 U/L (12-78); Albumin/Globulin Ratio 1.3 (1.1-1.8); Alkaline Phosphatase 131 U/L (38-126); Anion Gap 12.4 mEq/L (5-15); Aspartate Amino Transferase 30 U/L (17-59); Bilirubin,Total 0.6 mg/dl (0.2-1.3); Carbon Dioxide 31 mmol/L (22.0-30.0); Creatinine Clearance Estimated 45 mL/min (50-200); Estimated Glomerular Filt Rate 59 ml/min (>60); GFR (African American) 71 ML/MIN (>60); Globulin 3.1 g/dL (1.3-3.2); Total Protein,Serum 7.1 g/dl (6.3-8.2)
[2020-04-06 10:23] LABS: Calcium 9.3 mg/dl (8.4-10.2); Glucose 116 mg/dl (74-100)
[2020-04-06 10:53] LABS: Thyroid Stimulating Hormone 1.72 uIU/mL (0.465-4.68)
[2020-04-06 11:25] VITALS: BP 153/79; PULSE 59; RESP 20; TEMP 36.1; O2SAT 97
[2020-04-06 12:00] VITALS: BP 144/88; PULSE 60; RESP 18; O2SAT 98
[2020-04-06 12:35] VITALS: BP 158/91; PULSE 67; RESP 18; O2SAT 99
[2020-04-09 14:39] LABS: Adrenocorticotropic Hormone 17.9 pg/mL (7.2-63.3)
== END 2020-04-06 12:35 | disposition home or self-care (01) ==
LOC: INF 09:57
PROVIDERS: Visit Provider Internal Medicine Medical Oncology
DX: Z51.11 Encounter for antineoplastic chemotherapy (principal); C34.90 Malignant neoplasm of unspecified part of unspecified bronchus or lung; Z79.899 Other long term (current) drug therapy
CPT/HCPCS: 80053; 82024; 82533; 84443; 85025; 96413; J1642; J9022

== ENCOUNTER 2020-04-23 09:29 | Outpatient (CLI) | payer MEDICARE, SELFPAY ==
--- NOTE | 2020-04-23 | CT_ITS ---
PROCEDURE: CT CHEST W CON CLINCAL INDICATION: LUNG CANCER Follow-up lung cancer COMPARISON: CT CT CHEST W CON from 01/16/[address] ABDOMEN PELVIS W CON from 04/23/2020 TECHNIQUE: IV Contrast: 75ml Optiray 350 Axial images obtained with sagittal and coronal reformats. All CT scans at the facility use one or more dose reduction, viz: automated exposure control, ma/kV adjustment per patient size (including targeted exams where dose is matched to indication, i.e. head), or iterative reconstruction technique. FINDINGS: The small nodes are present in the aortopulmonic window which are probably not significantly changed. Small right pretracheal node at 1.1 cm is stable. Coronary artery calcifications and/or stents noted. Changes of COPD noted with biapical scarring. Stable 3 mm right upper lobe nodule. There is an 8 mm spiculated subpleural nodule in the superior segment of the right lower lobe. This has increased in size compared to the previous exam and is suspicious for neoplasm. There is a new subpleural nodule in the right lower lobe anteriorly measuring approximately 6 mm image 60. A stable fissural nodule present in the right lower lung zone image 50 at 4 mm. No lobar consolidation or collapse is evident. There are degenerative changes in the spine and shoulders. No bony destructive process. IMPRESSION: The subpleural nodule in the superior segment of the right lower lobe has increased in size and there is a new subpleural nodule in the right lower lobe laterally. Metastatic disease is considered. No change in the small mediastinal lymph nodes. Dictated by: Santi Lucero MD 04/24/2020 10:04 Santi Lucero MD in [place] 04/24/2020 10:04
--- NOTE | 2020-04-23 | CT_ITS ---
PROCEDURE: CT ABDOMEN PELVIS W CON CLINICAL INDICATION: LUNG CANCER Follow-up lung cancer COMPARISON: CT CT ABDOMEN PELVIS W CON from 01/16/2020 TECHNIQUE: IV Contrast: 75ML OPTIRAY 350 Oral Contrast None Axial images obtained with sagittal and coronal reformats. All CT scans at the facility use one or more dose reduction, viz: automated exposure control, ma/kV adjustment per patient size (including targeted exams where dose is matched to indication, i.e. head), or iterative reconstruction technique. FINDINGS: LOWER THORAX: Coronary artery calcifications are present. ABDOMEN & PELVIS: There has been a prior cholecystectomy. There is mild biliary ectasia. No focal liver lesion is evident. The spleen, adrenal glands, and kidneys have an unremarkable appearance aside from small left renal cortical cyst. No pancreatic mass evident. There are few small retroperitoneal lymph nodes which are unchanged. No intestinal obstruction or free air. There is colonic diverticulosis but no evidence of diverticulitis. No evidence of appendicitis. There is mild distention of the urinary bladder. There are mild osteoarthritic changes of the hips with degenerative changes noted of the spine. A longitudinal area of sclerosis is present in the right femoral shaft and neck possibly postsurgical. IMPRESSION: Overall no change with no acute finding with no convincing evidence of metastatic disease. Dictated by: Santi Lucero MD 04/24/2020 10:08 Santi Lucero MD in [place] 04/24/2020 10:08
[2020-04-23 09:13] VITALS: BMI 20.7
[2020-04-23 09:34] LABS: Basophils % 0.3 % (0.1-2.0); Eosinophils # 0.1 K/mm3 (0.0-0.4); Eosinophils % 1.4 % (0.1-12.0); Hematocrit 36.3 % (42.0-52.0); Lymphocytes # 1.2 K/mm3 (0.7-4.5); Lymphocytes % 17.5 % (10-50); Mean Corpuscular HGB Conc 33.1 g/dL (31.8-35.4); Mean Corpuscular Hemoglobin 30.8 pg (27.0-31.2); Mean Corpuscular Volume 93.2 fl (80-94); Mean Platelet Volume 8.3 fl (7.4-10.4); Monocytes # 0.5 K/mm3 (0.1-1.0); Neutrophils # 4.9 K/mm3 (1.8-7.8); Neutrophils % 73.8 % (37.0-80.0); Platelet Count 185 K/mm3 (142-424); Red Cell Distribution Width 12.9 % (11.5-17.5); White Blood Count 6.7 K/mm3 (4.8-10.8)
[2020-04-23 10:12] LABS: Chloride 101 mmol/L (98-107); Potassium 4.2 mmoL/L (3.5-5.1); Sodium 139 mmol/L (136-145)
[2020-04-23 10:14] LABS: Alanine Aminotransferase 22 U/L (12-78); Aspartate Amino Transferase 30 U/L (17-59); Blood Urea Nitrogen 20 mg/dl (9-20); Creatinine Clearance Estimated 51 mL/min (50-200); Estimated Glomerular Filt Rate 65 ml/min (>60); GFR (African American) 79 ML/MIN (>60)
[2020-04-23 10:15] LABS: Albumin Level 4.1 g/dl (3.5-5.0); Albumin/Globulin Ratio 1.5 (1.1-1.8); Alkaline Phosphatase 121 U/L (38-126); Anion Gap 13.2 mEq/L (5-15); Bilirubin,Total 0.5 mg/dl (0.2-1.3); Calcium 9.1 mg/dl (8.4-10.2); Carbon Dioxide 29 mmol/L (22.0-30.0); Globulin 2.8 g/dL (1.3-3.2); Glucose 120 mg/dl (74-100); Total Protein,Serum 6.9 g/dl (6.3-8.2)
== END 2020-04-23 11:00 | disposition home or self-care (01) ==
LOC: INF 09:30
PROVIDERS: PCP Internal Medicine Adolescent Medicine; Visit Provider Internal Medicine Medical Oncology
DX: C34.90 Malignant neoplasm of unspecified part of unspecified bronchus or lung (principal)
CPT/HCPCS: 71260; 74177; 80053; 85025; J1642; Q9967

== ENCOUNTER 2020-04-26 09:46 | Outpatient (CLI) | payer MEDICARE, SELFPAY ==
[2020-04-26 09:48] VITALS: BMI 21.7
[2020-04-26 10:30] VITALS: BP 149/79; PULSE 65; RESP 18; TEMP 36.3; O2SAT 97
[2020-04-26 10:45] VITALS: BP 135/95; PULSE 69; RESP 18
[2020-04-26 11:00] VITALS: BP 140/77; PULSE 59; RESP 18
[2020-04-26 11:09] LABS: Thyroid Stimulating Hormone 1.96 uIU/mL (0.465-4.68)
[2020-04-26 11:15] VITALS: BP 150/80; PULSE 57; RESP 18
[2020-04-26 11:30] VITALS: BP 157/81; PULSE 60; RESP 18
[2020-04-27 14:13] LABS: Adrenocorticotropic Hormone 15.4 pg/mL (7.2-63.3)
== END 2020-04-26 11:50 | disposition home or self-care (01) ==
LOC: INF 09:46
PROVIDERS: Visit Provider Internal Medicine Medical Oncology
DX: Z51.11 Encounter for antineoplastic chemotherapy (principal); C34.90 Malignant neoplasm of unspecified part of unspecified bronchus or lung; Z79.899 Other long term (current) drug therapy
CPT/HCPCS: 82024; 82533; 84443; 96413; J1642; J9022

== ENCOUNTER 2020-05-06 12:06 | Emergency (ER) | payer MEDICARE, SELFPAY ==
[2020-05-06 12:14] VITALS: BP 178/103; PULSE 86; RESP 20; O2SAT 96; BMI 23.1
[2020-05-06 12:30] VITALS: BP 162/95; PULSE 70; O2SAT 96
[2020-05-06 12:35] LABS: Basophils % 0.3 % (0.1-2.0); Eosinophils # 0.1 K/mm3 (0.0-0.4); Eosinophils % 1.9 % (0.1-12.0); Hematocrit 39.5 % (42.0-52.0); Hemoglobin 13.4 g/dL (14.1-18.0); Lymphocytes # 1.8 K/mm3 (0.7-4.5); Lymphocytes % 30.5 % (10-50); Mean Corpuscular HGB Conc 33.9 g/dL (31.8-35.4); Mean Corpuscular Hemoglobin 30.7 pg (27.0-31.2); Mean Corpuscular Volume 90.4 fl (80-94); Mean Platelet Volume 7.7 fl (7.4-10.4); Monocytes # 0.5 K/mm3 (0.1-1.0); Monocytes % 8.3 % (1.7-9.3); Neutrophils # 3.5 K/mm3 (1.8-7.8); Platelet Count 208 K/mm3 (142-424); Red Blood Count 4.37 M/mm3 (4.60-6.20); Red Cell Distribution Width 13.1 % (11.5-17.5); White Blood Count 5.9 K/mm3 (4.8-10.8)
[2020-05-06 12:39] LABS: Alanine Aminotransferase 26 U/L (12-78); Albumin Level 4.7 g/dl (3.5-5.0); Albumin/Globulin Ratio 1.3 (1.1-1.8); Alkaline Phosphatase 181 U/L (38-126); Anion Gap 15.6 mEq/L (5-15); Aspartate Amino Transferase 38 U/L (17-59); Bilirubin,Total 0.6 mg/dl (0.2-1.3); Blood Urea Nitrogen 20 mg/dl (9-20); Carbon Dioxide 31 mmol/L (22.0-30.0); Chloride 98 mmol/L (98-107); Creatinine Clearance Estimated 46 mL/min (50-200); Estimated Glomerular Filt Rate 59 ml/min (>60); GFR (African American) 71 ML/MIN (>60); Globulin 3.6 g/dL (1.3-3.2); Glucose 127 mg/dl (74-100); Potassium 4.6 mmoL/L (3.5-5.1); Sodium 140 mmol/L (136-145); Total Protein,Serum 8.3 g/dl (6.3-8.2)
[2020-05-06 12:59] VITALS: BP 155/84; PULSE 65; O2SAT 95
--- NOTE | 2020-05-06 13:05 | [facility].EDGENADL ---
ED Disposition Clinical Impression: Lightheadedness, Anxiety state, Essential hypertension Disposition: Home Health Service Condition on Discharge: Good Additional Instructions: Call your primary care provider tomorrow for follow-up. Continue current medications. Referrals: Jsoe Enrique Ha MD [Primary Care Provider] - - Critical Care Critical Care Time: No Attestation: On 05/06/20, the high probability of a clinically significant, sudden or life threatening deterioration of the following system(s) required my full and direct attention, intervention and personal management. The time I documented below is in addition to time spent performing reported procedures but includes the following listed in this critical care notation. Medical Decision Making - Medical Records Medical records reviewed: Yes: I reviewed the patient's medical records. - Thomas Inquiry Pt receiving controlled substance: No Vital Signs: 05/06/20 12:14 05/06/20 12:30 05/06/20 12:59 Temperature Temperature Source Pulse Rate Pulse Rate [Radial] 86 70 65 Respiratory Rate 20 Blood Pressure Blood Pressure [Right Arm] 178/103 H 162/95 H 155/84 H Blood Pressure Mean [Right Arm] 128 117 107 Blood Pressure Source Blood Pressure Source [Right Arm] Automatic Cuff Automatic Cuff Automatic Cuff Blood Pressure Position Blood Pressure Position [Right Arm] Sitting Sitting Sitting 02 Sat by Pulse Oximetry 96 96 95 Oxygen Delivery Method Room Air Room Air Room Air 05/06/20 13:39 Temperature 98.2 F Temperature Source Oral Pulse Rate 71 Pulse Rate [Radial] Respiratory Rate 20 Blood Pressure 166/91 H Blood Pressure [Right Arm] Blood Pressure Mean [Right Arm] Blood Pressure Source Automatic Cuff Blood Pressure Source [Right Arm] Blood Pressure Position Sitting Blood Pressure Position [Right Arm] 02 Sat by Pulse Oximetry Oxygen Delivery Method Room Air - Lab Data Lab results reviewed: Yes: I reviewed the patient's lab results. Lab Results 05/06/20 12:20: WBC 5.9, RBC 4.37 L, Hgb 13.4 L, Hct 39.5 L, MCV 90.4, MCH 30.7, MCHC 33.9, RDW 13.1, Plt Count 208, MPV 7.7, Neut % (Auto) 59.0, Lymph % (Auto) 30.5, [place] % (Auto) 8.3, Eos % (Auto) 1.9, Baso % (Auto) 0.3, Neut # (Auto) 3.5, Lymph # (Auto) 1.8, [place] # (Auto) 0.5, Eos # (Auto) 0.1, Baso # (Auto) 0.0 05/06/20 12:20: Sodium 140, Potassium 4.6, Chloride 98, Carbon Dioxide 31 H, Anion Gap 15.6 H, BUN 20, Creatinine 1.20, Estimated Creat Clear 46, Estimated GFR 59, Est GFR ( Amer) 71, Glucose 127 H, Calcium 10.0, Total Bilirubin 0.6, AST 38, ALT 26, Alkaline Phosphatase 181 H, Total Protein 8.3 H, Albumin 4.7, Globulin 3.6 H, Albumin/Globulin Ratio 1.3 Result diagrams: 05/06/20 12:20 05/06/20 12:20 Medical Decision Narrative: Blood pressure has come down on its own in the emergency department without treatment. He feels good and would like to be discharged. Advised to follow-up with primary care provider. General Adult HPI - General Chief complaint: Recheck/Abnormal Lab/Rx Stated complaint: high bp Time Seen by Provider: 05/06/20 12:55 Mode of Arrival: Ambulatory Limitations: No Limitations Description of Symptoms (Recalled from ER Triage Doc. by RN): Blood pressure is elevated and shaking. - History of Present Illness HPI narrative: States that he came in because he thought his blood pressure might be high. He says he began feeling funny in the head, and anxious. He did not have headache, visual disturbance, chest pain, shortness of breath, presyncope, or syncope. He says he now feels fine. He is on lisinopril for hypertension and did take it this morning. He did not check his blood pressure at home but just felt because of his symptoms that his blood pressure might be high. He has a lung cancer, he says he has been through chemotherapy and still gets some sort of medication through his port. He sees Dr. Mackenzie. He has a chronic tremor. He says he was
[2020-05-06 13:39] VITALS: BP 166/91; PULSE 71; RESP 20; TEMP 36.8; O2SAT 94
== END 2020-05-06 13:40 | disposition home health service (06) ==
PROVIDERS: Emergency Provider Emergency Medicine; PCP Internal Medicine Adolescent Medicine
DX: R42 Dizziness and giddiness (principal); F41.1 Generalized anxiety disorder; I10 Essential (primary) hypertension; J44.9 Chronic obstructive pulmonary disease, unspecified; E78.5 Hyperlipidemia, unspecified; G25.0 Essential tremor; C34.90 Malignant neoplasm of unspecified part of unspecified bronchus or lung; Z88.5 Allergy status to narcotic agent; Z87.891 Personal history of nicotine dependence; Z79.899 Other long term (current) drug therapy; Z90.49 Acquired absence of other specified parts of digestive tract
CPT/HCPCS: 80053; 85025; 99283

== ENCOUNTER 2020-05-17 09:43 | Outpatient (CLI) | payer MEDICARE, SELFPAY ==
[2020-05-17 09:45] VITALS: BMI 21.7
[2020-05-17 10:06] LABS: Basophils % 0.4 % (0.1-2.0); Eosinophils # 0.2 K/mm3 (0.0-0.4); Eosinophils % 2.5 % (0.1-12.0); Hematocrit 36.8 % (42.0-52.0); Hemoglobin 12.6 g/dL (14.1-18.0); Lymphocytes # 1.3 K/mm3 (0.7-4.5); Lymphocytes % 21.1 % (10-50); Mean Corpuscular HGB Conc 34.2 g/dL (31.8-35.4); Mean Corpuscular Hemoglobin 30.1 pg (27.0-31.2); Mean Corpuscular Volume 88.1 fl (80-94); Mean Platelet Volume 7.4 fl (7.4-10.4); Monocytes # 0.5 K/mm3 (0.1-1.0); Neutrophils # 4.3 K/mm3 (1.8-7.8); Platelet Count 200 K/mm3 (142-424); Red Blood Count 4.18 M/mm3 (4.60-6.20); Red Cell Distribution Width 13.1 % (11.5-17.5); White Blood Count 6.3 K/mm3 (4.8-10.8)
[2020-05-17 10:20] LABS: Chloride 101 mmol/L (98-107); Potassium 4.3 mmoL/L (3.5-5.1); Sodium 140 mmol/L (136-145)
[2020-05-17 10:22] LABS: Alanine Aminotransferase 26 U/L (12-78); Alkaline Phosphatase 141 U/L (38-126); Aspartate Amino Transferase 37 U/L (17-59); Bilirubin,Total 0.6 mg/dl (0.2-1.3); Blood Urea Nitrogen 20 mg/dl (9-20); Creatinine Clearance Estimated 46 mL/min (50-200); Estimated Glomerular Filt Rate 59 ml/min (>60); GFR (African American) 71 ML/MIN (>60)
[2020-05-17 10:23] LABS: Albumin Level 4.1 g/dl (3.5-5.0); Albumin/Globulin Ratio 1.3 (1.1-1.8); Anion Gap 12.3 mEq/L (5-15); Calcium 9.4 mg/dl (8.4-10.2); Carbon Dioxide 31 mmol/L (22.0-30.0); Globulin 3.1 g/dL (1.3-3.2); Glucose 126 mg/dl (74-100); Total Protein,Serum 7.2 g/dl (6.3-8.2)
[2020-05-17 11:20] VITALS: BP 128/74; PULSE 57; RESP 18; TEMP 35.8; O2SAT 98
[2020-05-17 11:35] VITALS: BP 146/77; PULSE 57; RESP 18
[2020-05-17 11:50] VITALS: BP 140/80; PULSE 57; RESP 18
[2020-05-17 12:05] VITALS: BP 150/86; PULSE 59; RESP 18
[2020-05-17 12:20] VITALS: BP 161/88; PULSE 60; RESP 18
[2020-05-18 17:21] LABS: Adrenocorticotropic Hormone 17.1 pg/mL (7.2-63.3)
== END 2020-05-17 12:35 | disposition home or self-care (01) ==
LOC: INF 09:43
PROVIDERS: Visit Provider Internal Medicine Medical Oncology
DX: Z51.11 Encounter for antineoplastic chemotherapy (principal); C34.90 Malignant neoplasm of unspecified part of unspecified bronchus or lung; R53.83 Other fatigue
CPT/HCPCS: 80053; 82024; 82533; 84443; 85025; 96413; J1642; J9022

== ENCOUNTER 2020-06-07 09:00 | Outpatient (CLI) | payer MEDICARE, SELFPAY ==
[2020-06-07 09:03] VITALS: BMI 22.4
[2020-06-07 09:12] LABS: Basophils % 0.3 % (0.1-2.0); Eosinophils # 0.3 K/mm3 (0.0-0.4); Eosinophils % 3.7 % (0.1-12.0); Hematocrit 37.4 % (42.0-52.0); Hemoglobin 12.8 g/dL (14.1-18.0); Lymphocytes # 1.8 K/mm3 (0.7-4.5); Lymphocytes % 25.2 % (10-50); Mean Corpuscular HGB Conc 34.3 g/dL (31.8-35.4); Mean Corpuscular Hemoglobin 30.6 pg (27.0-31.2); Mean Corpuscular Volume 89.3 fl (80-94); Mean Platelet Volume 8.1 fl (7.4-10.4); Monocytes # 0.7 K/mm3 (0.1-1.0); Monocytes % 9.2 % (1.7-9.3); Neutrophils # 4.5 K/mm3 (1.8-7.8); Neutrophils % 61.7 % (37.0-80.0); Platelet Count 196 K/mm3 (142-424); Red Blood Count 4.19 M/mm3 (4.60-6.20); Red Cell Distribution Width 13.1 % (11.5-17.5); White Blood Count 7.3 K/mm3 (4.8-10.8)
[2020-06-07 09:17] LABS: Chloride 103 mmol/L (98-107)
[2020-06-07 09:18] LABS: Potassium 4.1 mmoL/L (3.5-5.1); Sodium 141 mmol/L (136-145)
[2020-06-07 09:20] LABS: Alanine Aminotransferase 24 U/L (12-78); Alkaline Phosphatase 126 U/L (38-126); Anion Gap 13.1 mEq/L (5-15); Aspartate Amino Transferase 30 U/L (17-59); Bilirubin,Total 0.6 mg/dl (0.2-1.3); Blood Urea Nitrogen 24 mg/dl (9-20); Carbon Dioxide 29 mmol/L (22.0-30.0); Creatinine Clearance Estimated 44 mL/min (50-200); Estimated Glomerular Filt Rate 54 ml/min (>60); GFR (African American) 65 ML/MIN (>60)
[2020-06-07 09:21] LABS: Albumin Level 4.1 g/dl (3.5-5.0); Albumin/Globulin Ratio 1.4 (1.1-1.8); Calcium 9.6 mg/dl (8.4-10.2); Glucose 128 mg/dl (74-100); Total Protein,Serum 7.1 g/dl (6.3-8.2)
[2020-06-07 10:20] VITALS: BP 124/73; PULSE 60; RESP 20; TEMP 36.4; O2SAT 97
[2020-06-07 10:35] VITALS: BP 142/78; PULSE 63; RESP 18
[2020-06-07 10:50] VITALS: BP 136/87; PULSE 60; RESP 18
[2020-06-07 11:05] VITALS: BP 168/93; PULSE 65; RESP 18
[2020-06-07 11:35] VITALS: BP 155/85; PULSE 61; RESP 18; O2SAT 98
== END 2020-06-07 11:35 | disposition home or self-care (01) ==
LOC: INF 09:00
PROVIDERS: Visit Provider Internal Medicine Medical Oncology
DX: Z51.11 Encounter for antineoplastic chemotherapy (principal); C34.91 Malignant neoplasm of unspecified part of right bronchus or lung
CPT/HCPCS: 80053; 85025; 96413; J1642; J9022

== ENCOUNTER 2020-06-25 08:44 | Outpatient (CLI) | payer MEDICARE, SELFPAY ==
[2020-06-25 08:34] VITALS: BMI 22.4
[2020-06-25 09:09] LABS: Basophils % 0.6 % (0.1-2.0); Eosinophils # 0.3 K/mm3 (0.0-0.4); Hematocrit 39.8 % (42.0-52.0); Hemoglobin 12.8 g/dL (14.1-18.0); Lymphocytes # 1.6 K/mm3 (0.7-4.5); Lymphocytes % 23.4 % (10-50); Mean Corpuscular HGB Conc 32.1 g/dL (31.8-35.4); Mean Corpuscular Hemoglobin 28.2 pg (27.0-31.2); Mean Corpuscular Volume 87.9 fl (80-94); Mean Platelet Volume 7.4 fl (7.4-10.4); Monocytes # 0.6 K/mm3 (0.1-1.0); Monocytes % 9.1 % (1.7-9.3); Neutrophils # 4.3 K/mm3 (1.8-7.8); Neutrophils % 62.9 % (37.0-80.0); Platelet Count 188 K/mm3 (142-424); Red Blood Count 4.53 M/mm3 (4.60-6.20); Red Cell Distribution Width 13.3 % (11.5-17.5); White Blood Count 6.8 K/mm3 (4.8-10.8)
[2020-06-25 09:14] LABS: Chloride 101 mmol/L (98-107); Sodium 139 mmol/L (136-145)
[2020-06-25 09:17] LABS: Alanine Aminotransferase 22 U/L (12-78); Albumin Level 4.1 g/dl (3.5-5.0); Albumin/Globulin Ratio 1.4 (1.1-1.8); Alkaline Phosphatase 121 U/L (38-126); Aspartate Amino Transferase 29 U/L (17-59); Bilirubin,Total 0.6 mg/dl (0.2-1.3); Blood Urea Nitrogen 25 mg/dl (9-20); Calcium 9.1 mg/dl (8.4-10.2); Carbon Dioxide 30 mmol/L (22.0-30.0); Creatinine Clearance Estimated 44 mL/min (50-200); Estimated Glomerular Filt Rate 54 ml/min (>60); GFR (African American) 65 ML/MIN (>60); Globulin 2.9 g/dL (1.3-3.2); Glucose 122 mg/dl (74-100)
--- NOTE | 2020-06-25 09:27 | CT_ITS ---
PROCEDURE: CT ABDOMEN PELVIS W CON CLINICAL INDICATION: LUNG CA, follow-up lung cancer COMPARISON: CT CT ABDOMEN PELVIS WO/W CON from 11/08/[address] ABDOMEN PELVIS W CON from 04/23/2020 TECHNIQUE: IV Contrast: 75ML OPTIRAY 350 Oral Contrast None Axial images obtained with sagittal and coronal reformats. All CT scans at the facility use one or more dose reduction, viz: automated exposure control, ma/kV adjustment per patient size (including targeted exams where dose is matched to indication, i.e. head), or iterative reconstruction technique. FINDINGS: The liver and spleen have an unremarkable appearance as do the adrenal glands. There is coarse calcification involving the mid aspect of the body of the pancreas which is unchanged. This this there is a small exophytic cyst projecting off the posterior aspect of the left kidney. Kidneys are otherwise unremarkable. No intra-abdominal mass or abnormal fluid collection. The bowel gas pattern is nonspecific with a few air-fluid levels within the large and small bowel. There is a mild amount of retained colonic feces. No pelvic mass or abnormal fluid collection. No evidence of appendicitis or diverticulitis. No retroperitoneal adenopathy. No acute bony findings. Sclerotic density is present in the right femoral neck linear in nature IMPRESSION: Stable CT appearance of the abdomen with no convincing evidence of metastatic disease to the abdomen. Dictated by: Santi Lucero MD 06/26/2020 07:30 Santi Lucero MD in [place] 06/26/2020 07:30
--- NOTE | 2020-06-25 09:36 | CT_ITS ---
PROCEDURE: CT CHEST W CON CLINCAL INDICATION: LUNG CA Follow-up lung cancer COMPARISON: CT CT CHEST WO/W CON from 11/08/[address] CHEST W CON from 01/16/[address] CHEST W CON from 04/23/2020 TECHNIQUE: IV Contrast: 75ml Optiray 350 Axial images obtained with sagittal and coronal reformats. All CT scans at the facility use one or more dose reduction, viz: automated exposure control, ma/kV adjustment per patient size (including targeted exams where dose is matched to indication, i.e. head), or iterative reconstruction technique. FINDINGS: There is an enlarging subcarinal lymph node measuring 2.7 by 1.9 cm previously 1.6 by 1 cm. Small precarinal and aortopulmonic window nodes are unchanged. Coronary artery calcifications are present. There is normal heart size. 3 mm right apical nodule is stable. Spiculated nodule in the superior segment of the right lower lobe has further increased in size now measuring 1.5 x 60.8 cm previously this 8 x 9 mm. There are numerous faint small nodular opacities in the right lower lobe which has developed in the interval. Other smaller nodules in the right lower lobe are stable. Left apical nodule/area of scarring is stable. No acute bony findings. IMPRESSION: Enlarging spiculated nodule in the superior segment of the right lower lobe consistent with neoplasm. Enlarging subcarinal mediastinal lymph nodes suspicious for metastatic disease. There are numerous faint nodular opacities in the right lung base. These are nonspecific and has developed since the previous exam and could be neoplastic inflammatory or infectious. Dictated by: Santi Lucero MD 06/26/2020 07:08 Santi Lucero MD in [place] 06/26/2020 07:10
== END 2020-06-25 09:57 | disposition home or self-care (01) ==
PROVIDERS: PCP Internal Medicine Adolescent Medicine; Visit Provider Internal Medicine Medical Oncology
DX: C34.91 Malignant neoplasm of unspecified part of right bronchus or lung (principal)
CPT/HCPCS: 71260; 74177; 80053; 85025; J1642; Q9967

== ENCOUNTER 2020-07-05 09:30 | Outpatient (CLI) | payer MEDICARE, SELFPAY ==
[2020-07-05 09:25] VITALS: BP 152/87; PULSE 80; RESP 20; TEMP 36.2; O2SAT 92
[2020-07-05 09:39] VITALS: BMI 22.4
[2020-07-05 10:10] LABS: Basophils % 0.5 % (0.1-2.0); Eosinophils # 0.3 K/mm3 (0.0-0.4); Hematocrit 38.8 % (42.0-52.0); Hemoglobin 13.4 g/dL (14.1-18.0); Lymphocytes # 1.7 K/mm3 (0.7-4.5); Lymphocytes % 23.5 % (10-50); Mean Corpuscular HGB Conc 34.5 g/dL (31.8-35.4); Mean Corpuscular Hemoglobin 29.6 pg (27.0-31.2); Mean Corpuscular Volume 85.7 fl (80-94); Mean Platelet Volume 7.4 fl (7.4-10.4); Monocytes # 0.7 K/mm3 (0.1-1.0); Monocytes % 9.3 % (1.7-9.3); Neutrophils # 4.4 K/mm3 (1.8-7.8); Neutrophils % 62.7 % (37.0-80.0); Platelet Count 178 K/mm3 (142-424); Red Blood Count 4.53 M/mm3 (4.60-6.20); Red Cell Distribution Width 13.4 % (11.5-17.5)
[2020-07-05 10:13] LABS: Chloride 101 mmol/L (98-107); Potassium 3.9 mmoL/L (3.5-5.1); Sodium 139 mmol/L (136-145)
[2020-07-05 10:15] LABS: Blood Urea Nitrogen 25 mg/dl (9-20); Creatinine Clearance Estimated 41 mL/min (50-200); Estimated Glomerular Filt Rate 49 ml/min (>60); GFR (African American) 60 ML/MIN (>60)
[2020-07-05 10:16] LABS: Alanine Aminotransferase 22 U/L (12-78); Albumin Level 4.4 g/dl (3.5-5.0); Albumin/Globulin Ratio 1.5 (1.1-1.8); Alkaline Phosphatase 127 U/L (38-126); Anion Gap 12.9 mEq/L (5-15); Aspartate Amino Transferase 30 U/L (17-59); Bilirubin,Total 0.6 mg/dl (0.2-1.3); Calcium 9.3 mg/dl (8.4-10.2); Carbon Dioxide 29 mmol/L (22.0-30.0); Glucose 119 mg/dl (74-100); Total Protein,Serum 7.4 g/dl (6.3-8.2)
[2020-07-05 11:25] VITALS: BP 124/80; PULSE 62; RESP 20; TEMP 36.2; O2SAT 92
[2020-07-05 11:40] VITALS: BP 120/72; PULSE 57; RESP 20
[2020-07-05 11:55] VITALS: BP 117/74; PULSE 59; RESP 20
== END 2020-07-05 12:05 | disposition home or self-care (01) ==
LOC: INF 09:37
PROVIDERS: Visit Provider Internal Medicine Medical Oncology
DX: Z51.11 Encounter for antineoplastic chemotherapy (principal); C34.91 Malignant neoplasm of unspecified part of right bronchus or lung
CPT/HCPCS: 80053; 85025; 96365; 96413; J1642; J2405; J9351

== ENCOUNTER 2020-07-12 08:19 | Outpatient (CLI) | payer MEDICARE, SELFPAY ==
[2020-07-12 08:20] VITALS: BMI 22.4
[2020-07-12 08:49] LABS: Basophils % 0.3 % (0.1-2.0); Eosinophils # 0.1 K/mm3 (0.0-0.4); Eosinophils % 4.6 % (0.1-12.0); Hematocrit 35.4 % (42.0-52.0); Hemoglobin 11.5 g/dL (14.1-18.0); Lymphocytes % 32.7 % (10-50); Mean Corpuscular HGB Conc 32.5 g/dL (31.8-35.4); Mean Corpuscular Hemoglobin 28.5 pg (27.0-31.2); Mean Corpuscular Volume 87.7 fl (80-94); Mean Platelet Volume 7.9 fl (7.4-10.4); Monocytes # 0.2 K/mm3 (0.1-1.0); Neutrophils # 1.7 K/mm3 (1.8-7.8); Neutrophils % 56.4 % (37.0-80.0); Platelet Count 120 K/mm3 (142-424); Red Blood Count 4.04 M/mm3 (4.60-6.20); Red Cell Distribution Width 12.8 % (11.5-17.5)
[2020-07-12 08:53] LABS: Chloride 103 mmol/L (98-107); Potassium 3.9 mmoL/L (3.5-5.1); Sodium 140 mmol/L (136-145)
[2020-07-12 08:56] LABS: Alanine Aminotransferase 22 U/L (12-78); Albumin Level 4.2 g/dl (3.5-5.0); Albumin/Globulin Ratio 1.6 (1.1-1.8); Alkaline Phosphatase 129 U/L (38-126); Anion Gap 12.9 mEq/L (5-15); Aspartate Amino Transferase 28 U/L (17-59); Bilirubin,Total 0.8 mg/dl (0.2-1.3); Blood Urea Nitrogen 31 mg/dl (9-20); Carbon Dioxide 28 mmol/L (22.0-30.0); Creatinine Clearance Estimated 36 mL/min (50-200); Estimated Glomerular Filt Rate 42 ml/min (>60); GFR (African American) 51 ML/MIN (>60); Globulin 2.7 g/dL (1.3-3.2); Glucose 124 mg/dl (74-100); Total Protein,Serum 6.9 g/dl (6.3-8.2)
[2020-07-12 10:25] VITALS: BP 132/62; PULSE 58; RESP 18; TEMP 35.9; O2SAT 97
[2020-07-12 10:40] VITALS: BP 127/71; PULSE 55; RESP 18
[2020-07-12 10:55] VITALS: BP 131/66; PULSE 57; RESP 18
== END 2020-07-12 11:10 | disposition home or self-care (01) ==
LOC: INF 08:19
PROVIDERS: Visit Provider Internal Medicine Medical Oncology
DX: Z51.11 Encounter for antineoplastic chemotherapy (principal); C34.91 Malignant neoplasm of unspecified part of right bronchus or lung
CPT/HCPCS: 80053; 85025; 96413; J1642; J2405; J9351

== ENCOUNTER 2020-07-19 09:03 | Outpatient (CLI) | payer MEDICARE, SELFPAY ==
[2020-07-19 09:06] VITALS: BMI 22.4
[2020-07-19 09:31] LABS: Basophils % 0.2 % (0.1-2.0); Eosinophils # 0.1 K/mm3 (0.0-0.4); Eosinophils % 4.1 % (0.1-12.0); Hematocrit 33.3 % (42.0-52.0); Hemoglobin 10.6 g/dL (14.1-18.0); Lymphocytes # 0.8 K/mm3 (0.7-4.5); Lymphocytes % 39.2 % (10-50); Mean Corpuscular HGB Conc 31.9 g/dL (31.8-35.4); Mean Corpuscular Volume 87.8 fl (80-94); Mean Platelet Volume 7.6 fl (7.4-10.4); Monocytes % 2.1 % (1.7-9.3); Neutrophils # 1.1 K/mm3 (1.8-7.8); Neutrophils % 54.4 % (37.0-80.0); Red Blood Count 3.79 M/mm3 (4.60-6.20); Red Cell Distribution Width 12.4 % (11.5-17.5); White Blood Count 2.1 K/mm3 (4.8-10.8)
[2020-07-19 09:32] LABS: Platelet Count 38 K/mm3 (142-424)
[2020-07-19 09:34] LABS: Chloride 102 mmol/L (98-107); Sodium 139 mmol/L (136-145)
[2020-07-19 09:36] LABS: Blood Urea Nitrogen 26 mg/dl (9-20); Creatinine Clearance Estimated 41 mL/min (50-200); Estimated Glomerular Filt Rate 49 ml/min (>60); GFR (African American) 60 ML/MIN (>60)
[2020-07-19 09:37] LABS: Alanine Aminotransferase 20 U/L (12-78); Albumin Level 4.2 g/dl (3.5-5.0); Albumin/Globulin Ratio 1.5 (1.1-1.8); Alkaline Phosphatase 130 U/L (38-126); Aspartate Amino Transferase 25 U/L (17-59); Bilirubin,Total 0.8 mg/dl (0.2-1.3); Calcium 9.3 mg/dl (8.4-10.2); Carbon Dioxide 28 mmol/L (22.0-30.0); Globulin 2.8 g/dL (1.3-3.2); Glucose 115 mg/dl (74-100)
--- NOTE | 2020-07-19 11:32 | PC.NURSE ---
07/19/20, spoke with pt regarding abnormal lab results today and the md's decision to hold treatment. informed pt that we would call in a prescription to his pharmacy for magic mouthwash and instructed pt to keep drinking plenty of fluids to avoid dehydration. pt aware of next scheduled appt with md on 07/30.
== END 2020-07-19 09:50 | disposition home or self-care (01) ==
LOC: INF 09:03
PROVIDERS: Visit Provider Internal Medicine Medical Oncology
DX: C34.91 Malignant neoplasm of unspecified part of right bronchus or lung (principal); Z45.2 Encounter for adjustment and management of vascular access device
CPT/HCPCS: 80053; 85025; J1642

== ENCOUNTER 2020-07-31 09:20 | Outpatient (CLI) | payer MEDICARE, SELFPAY ==
[2020-07-31 09:24] VITALS: BMI 21.4
[2020-07-31 09:42] LABS: Basophils % 0.5 % (0.1-2.0); Eosinophils # 0.1 K/mm3 (0.0-0.4); Eosinophils % 1.9 % (0.1-12.0); Hematocrit 31.8 % (42.0-52.0); Hemoglobin 10.1 g/dL (14.1-18.0); Mean Corpuscular HGB Conc 31.8 g/dL (31.8-35.4); Mean Corpuscular Hemoglobin 27.9 pg (27.0-31.2); Mean Corpuscular Volume 87.8 fl (80-94); Mean Platelet Volume 7.8 fl (7.4-10.4); Monocytes # 0.4 K/mm3 (0.1-1.0); Monocytes % 16.7 % (1.7-9.3); Neutrophils # 0.9 K/mm3 (1.8-7.8); Neutrophils % 37.9 % (37.0-80.0); Platelet Count 358 K/mm3 (142-424); Red Blood Count 3.63 M/mm3 (4.60-6.20); Red Cell Distribution Width 13.5 % (11.5-17.5); White Blood Count 2.4 K/mm3 (4.8-10.8)
[2020-07-31 09:51] LABS: Chloride 99 mmol/L (98-107); Potassium 3.9 mmoL/L (3.5-5.1); Sodium 138 mmol/L (136-145)
[2020-07-31 09:54] LABS: Alanine Aminotransferase 20 U/L (12-78); Albumin Level 4.1 g/dl (3.5-5.0); Albumin/Globulin Ratio 1.4 (1.1-1.8); Alkaline Phosphatase 159 U/L (38-126); Anion Gap 10.9 mEq/L (5-15); Aspartate Amino Transferase 28 U/L (17-59); Bilirubin,Total 0.7 mg/dl (0.2-1.3); Blood Urea Nitrogen 20 mg/dl (9-20); Calcium 9.1 mg/dl (8.4-10.2); Carbon Dioxide 32 mmol/L (22.0-30.0); Creatinine Clearance Estimated 43 mL/min (50-200); Estimated Glomerular Filt Rate 54 ml/min (>60); GFR (African American) 65 ML/MIN (>60); Glucose 123 mg/dl (74-100); Total Protein,Serum 7.1 g/dl (6.3-8.2)
== END 2020-07-31 10:40 | disposition home or self-care (01) ==
LOC: INF 09:22
PROVIDERS: Visit Provider Internal Medicine Medical Oncology
DX: C34.91 Malignant neoplasm of unspecified part of right bronchus or lung (principal)
CPT/HCPCS: 80053; 85025; J1642

== ENCOUNTER 2020-08-09 08:50 | Outpatient (CLI) | payer MEDICARE, SELFPAY ==
[2020-08-09 09:00] VITALS: BMI 22.1
[2020-08-09 09:12] LABS: Basophils % 0.5 % (0.1-2.0); Eosinophils # 0.1 K/mm3 (0.0-0.4); Eosinophils % 0.7 % (0.1-12.0); Hematocrit 34.5 % (42.0-52.0); Hemoglobin 11.7 g/dL (14.1-18.0); Lymphocytes # 1.5 K/mm3 (0.7-4.5); Lymphocytes % 19.2 % (10-50); Mean Corpuscular HGB Conc 33.8 g/dL (31.8-35.4); Mean Corpuscular Hemoglobin 29.9 pg (27.0-31.2); Mean Corpuscular Volume 88.5 fl (80-94); Monocytes # 0.7 K/mm3 (0.1-1.0); Monocytes % 9.2 % (1.7-9.3); Neutrophils # 5.5 K/mm3 (1.8-7.8); Neutrophils % 70.3 % (37.0-80.0); Platelet Count 326 K/mm3 (142-424); Red Blood Count 3.91 M/mm3 (4.60-6.20); Red Cell Distribution Width 14.8 % (11.5-17.5); White Blood Count 7.8 K/mm3 (4.8-10.8)
[2020-08-09 10:00] VITALS: BP 139/64; PULSE 69; RESP 20; O2SAT 100
[2020-08-09 10:15] VITALS: BP 127/77; PULSE 63; RESP 18
[2020-08-09 10:30] VITALS: BP 121/76; PULSE 59; RESP 20
[2020-08-09 10:33] VITALS: BP 138/85; PULSE 65; RESP 20
[2020-08-09 10:45] VITALS: BP 135/59; PULSE 70; RESP 18
== END 2020-08-09 10:45 | disposition home or self-care (01) ==
LOC: INF 08:58
PROVIDERS: Visit Provider Internal Medicine Medical Oncology
DX: Z51.11 Encounter for antineoplastic chemotherapy (principal); C34.91 Malignant neoplasm of unspecified part of right bronchus or lung
CPT/HCPCS: 85025; 96413; J1642; J2405; J9351

== ENCOUNTER 2020-08-16 11:03 | Outpatient (CLI) | payer MEDICARE, SELFPAY ==
[2020-08-16 11:06] VITALS: BMI 21.4
[2020-08-16 11:29] LABS: Potassium 4.2 mmoL/L (3.5-5.1); Sodium 136 mmol/L (136-145)
[2020-08-16 11:30] LABS: Chloride 101 mmol/L (98-107)
[2020-08-16 11:31] LABS: Basophils # 0.1 K/mm3 (0-0.2); Basophils % 1.4 % (0.1-2.0); Blood Urea Nitrogen 31 mg/dl (9-20); Creatinine Clearance Estimated 40 mL/min (50-200); Eosinophils # 0.1 K/mm3 (0.0-0.4); Estimated Glomerular Filt Rate 49 ml/min (>60); GFR (African American) 60 ML/MIN (>60); Hemoglobin 10.7 g/dL (14.1-18.0); Lymphocytes # 1.2 K/mm3 (0.7-4.5); Lymphocytes % 16.1 % (10-50); Mean Corpuscular HGB Conc 29.6 g/dL (31.8-35.4); Mean Corpuscular Hemoglobin 29.7 pg (27.0-31.2); Mean Corpuscular Volume 100.3 fl (80-94); Mean Platelet Volume 13.7 fl (7.4-10.4); Monocytes # 0.3 K/mm3 (0.1-1.0); Monocytes % 4.7 % (1.7-9.3); Neutrophils # 5.7 K/mm3 (1.8-7.8); Neutrophils % 76.8 % (37.0-80.0); Platelet Count 173 K/mm3 (142-424); Red Blood Count 3.59 M/mm3 (4.60-6.20); Red Cell Distribution Width 16.2 % (11.5-17.5); White Blood Count 7.4 K/mm3 (4.8-10.8)
[2020-08-16 11:32] LABS: Alanine Aminotransferase 24 U/L (12-78); Albumin Level 4.4 g/dl (3.5-5.0); Albumin/Globulin Ratio 1.5 (1.1-1.8); Alkaline Phosphatase 146 U/L (38-126); Anion Gap 11.2 mEq/L (5-15); Aspartate Amino Transferase 27 U/L (17-59); Bilirubin,Total 0.7 mg/dl (0.2-1.3); Carbon Dioxide 28 mmol/L (22.0-30.0); Total Protein,Serum 7.4 g/dl (6.3-8.2)
[2020-08-16 11:33] LABS: Calcium 9.4 mg/dl (8.4-10.2); Glucose 120 mg/dl (74-100)
[2020-08-16 12:13] VITALS: BP 101/57; PULSE 63; RESP 18; TEMP 36.3; O2SAT 98
[2020-08-16 12:47] VITALS: BP 107/55; PULSE 75; RESP 18; O2SAT 99
[2020-08-16 13:22] VITALS: BP 105/59; PULSE 68; RESP 18; O2SAT 99
== END 2020-08-16 13:30 | disposition home or self-care (01) ==
LOC: INF 11:03
PROVIDERS: Visit Provider Internal Medicine Medical Oncology
DX: Z51.11 Encounter for antineoplastic chemotherapy (principal); C34.91 Malignant neoplasm of unspecified part of right bronchus or lung
CPT/HCPCS: 80053; 85025; 96401; 96413; J1642; J2405; J2505; J8501; J9351

== ENCOUNTER 2020-08-22 09:27 | Outpatient (CLI) | payer MEDICARE, SELFPAY ==
[2020-08-22 09:13] VITALS: BMI 22.1
[2020-08-22 09:36] LABS: Basophils % 0.3 % (0.1-2.0); Eosinophils # 0.1 K/mm3 (0.0-0.4); Eosinophils % 2.2 % (0.1-12.0); Hematocrit 29.9 % (42.0-52.0); Hemoglobin 10.1 g/dL (14.1-18.0); Lymphocytes % 24.4 % (10-50); Mean Corpuscular HGB Conc 33.8 g/dL (31.8-35.4); Mean Corpuscular Hemoglobin 29.9 pg (27.0-31.2); Mean Corpuscular Volume 88.3 fl (80-94); Mean Platelet Volume 8.7 fl (7.4-10.4); Monocytes # 0.1 K/mm3 (0.1-1.0); Monocytes % 3.3 % (1.7-9.3); Neutrophils # 2.8 K/mm3 (1.8-7.8); Neutrophils % 69.8 % (37.0-80.0); Platelet Count 84 K/mm3 (142-424); Red Blood Count 3.38 M/mm3 (4.60-6.20); Red Cell Distribution Width 14.3 % (11.5-17.5); White Blood Count 4.1 K/mm3 (4.8-10.8)
[2020-08-22 09:50] LABS: Chloride 101 mmol/L (98-107); Potassium 3.7 mmoL/L (3.5-5.1); Sodium 138 mmol/L (136-145)
[2020-08-22 09:52] LABS: Blood Urea Nitrogen 34 mg/dl (9-20); Creatinine Clearance Estimated 40 mL/min (50-200); Estimated Glomerular Filt Rate 49 ml/min (>60); GFR (African American) 60 ML/MIN (>60)
[2020-08-22 09:53] LABS: Alanine Aminotransferase 31 U/L (12-78); Albumin Level 4.4 g/dl (3.5-5.0); Albumin/Globulin Ratio 1.6 (1.1-1.8); Alkaline Phosphatase 150 U/L (38-126); Anion Gap 14.7 mEq/L (5-15); Aspartate Amino Transferase 29 U/L (17-59); Bilirubin,Total 0.6 mg/dl (0.2-1.3); Calcium 9.5 mg/dl (8.4-10.2); Carbon Dioxide 26 mmol/L (22.0-30.0); Globulin 2.8 g/dL (1.3-3.2); Glucose 126 mg/dl (74-100); Total Protein,Serum 7.2 g/dl (6.3-8.2)
--- NOTE | 2020-08-22 10:02 | CT_ITS ---
PROCEDURE: CT ABDOMEN PELVIS W CON CLINICAL INDICATION: LUNG CA Follow-up lung cancer COMPARISON: CT CT ABDOMEN PELVIS W CON from 06/25/2020 TECHNIQUE: IV Contrast: 75ML Isovue 370 Oral Contrast None Axial images obtained with sagittal and coronal reformats. All CT scans at the facility use one or more dose reduction, viz: automated exposure control, ma/kV adjustment per patient size (including targeted exams where dose is matched to indication, i.e. head), or iterative reconstruction technique. FINDINGS: There has been prior cholecystectomy. Liver, spleen, adrenal glands, pancreas, and kidneys show no acute finding. There is a small left exophytic renal cyst. No intestinal obstruction or free air. No pelvic or abdominal mass or adenopathy. The prostate is slightly prominent. There is a small right inguinal hernia which contains a loop of small bowel. No evidence of bowel obstruction. No evidence of appendicitis. There are few colonic diverticula but no evidence of diverticulitis. There is a linear area of sclerosis in the right femoral neck not significantly changed. IMPRESSION: No change with no acute finding. No convincing evidence of metastatic disease. Dictated by: Santi Lucero MD 08/24/2020 06:08 Santi Lucero MD in [facility] 08/24/2020 06:08
--- NOTE | 2020-08-22 10:02 | CT_ITS ---
PROCEDURE: CT CHEST W CON CLINCAL INDICATION: LUNG CA FOLLOW UP LUNG CANCER CURRENTLY ON CHEMO COMPARISON: CT CT CHEST W CON from 06/25/2020 TECHNIQUE: IV Contrast: 75ml Isovue 370 Axial images obtained with sagittal and coronal reformats. All CT scans at the facility use one or more dose reduction, viz: automated exposure control, ma/kV adjustment per patient size (including targeted exams where dose is matched to indication, i.e. head), or iterative reconstruction technique. FINDINGS: HEART AND MEDIASTINAL STRUCTURES: Subcarinal adenopathy not significantly changed. There are coronary artery calcifications. LUNGS AND PLEURAL SPACES: The spiculated nodule in the superior segment of the right lower lobe appears slightly less prominent measuring 12 by 8 mm compared to 15 by 8 mm. No new nodules are evident. There are few small nodular opacities in the right lower lobe at 3 mm which are unchanged. Other noted smaller opacities have improved. No new nodules are evident.. BONY STRUCTURES: No acute bony abnormalities apparent. UPPER ABDOMEN: Unremarkable. ADDITIONAL FINDINGS: No other significant abnormalities. IMPRESSION: No change in the mild mediastinal adenopathy. Slight decrease in size in the spiculated nodule in the right lower lobe. Other smaller nodular opacities at approximately 3 mm are unchanged with no new lung nodules apparent Dictated by: Santi Lucero MD 08/23/2020 15:32 Santi Lucero MD in [facility] 08/23/2020 15:34
== END 2020-08-22 10:30 | disposition home or self-care (01) ==
LOC: INF 09:27
PROVIDERS: PCP Internal Medicine Adolescent Medicine; Visit Provider Internal Medicine Medical Oncology
DX: C34.90 Malignant neoplasm of unspecified part of unspecified bronchus or lung (principal); Z03.89 Encounter for observation for other suspected diseases and conditions ruled out
CPT/HCPCS: 71260; 74177; 80053; 85025; J1642; Q9967

== ENCOUNTER 2020-08-28 10:20 | Outpatient (CLI) | payer MEDICARE, SELFPAY ==
[2020-08-28 10:27] VITALS: BMI 21.4
[2020-08-28 10:51] LABS: Chloride 103 mmol/L (98-107); Potassium 3.5 mmoL/L (3.5-5.1); Sodium 138 mmol/L (136-145)
[2020-08-28 10:54] LABS: Alanine Aminotransferase 17 U/L (12-78); Albumin Level 3.9 g/dl (3.5-5.0); Albumin/Globulin Ratio 1.3 (1.1-1.8); Alkaline Phosphatase 133 U/L (38-126); Anion Gap 10.5 mEq/L (5-15); Aspartate Amino Transferase 23 U/L (17-59); Bilirubin,Total 0.4 mg/dl (0.2-1.3); Blood Urea Nitrogen 26 mg/dl (9-20); Carbon Dioxide 28 mmol/L (22.0-30.0); Creatinine Clearance Estimated 39 mL/min (50-200); Estimated Glomerular Filt Rate 49 ml/min (>60); GFR (African American) 60 ML/MIN (>60); Globulin 2.9 g/dL (1.3-3.2); Total Protein,Serum 6.8 g/dl (6.3-8.2)
[2020-08-28 10:55] LABS: Glucose 124 mg/dl (74-100)
[2020-08-28 10:56] LABS: Basophils % 0.5 % (0.1-2.0); Eosinophils # 0.1 K/mm3 (0.0-0.4); Hematocrit 27.5 % (42.0-52.0); Hemoglobin 9.4 g/dL (14.1-18.0); Lymphocytes # 0.9 K/mm3 (0.7-4.5); Lymphocytes % 36.1 % (10-50); Mean Corpuscular HGB Conc 34.2 g/dL (31.8-35.4); Mean Corpuscular Hemoglobin 30.4 pg (27.0-31.2); Mean Platelet Volume 8.8 fl (7.4-10.4); Monocytes # 0.2 K/mm3 (0.1-1.0); Monocytes % 7.4 % (1.7-9.3); Neutrophils # 1.2 K/mm3 (1.8-7.8); Platelet Count 86 K/mm3 (142-424); Red Blood Count 3.09 M/mm3 (4.60-6.20); Red Cell Distribution Width 14.8 % (11.5-17.5); White Blood Count 2.4 K/mm3 (4.8-10.8)
== END 2020-08-28 12:05 | disposition home or self-care (01) ==
LOC: INF 10:25
PROVIDERS: Visit Provider Internal Medicine Medical Oncology
DX: C34.90 Malignant neoplasm of unspecified part of unspecified bronchus or lung (principal); Z45.2 Encounter for adjustment and management of vascular access device
CPT/HCPCS: 80053; 85025; J1642

== ENCOUNTER 2020-09-04 09:05 | Outpatient (CLI) | payer MEDICARE, SELFPAY ==
[2020-09-04 09:07] VITALS: BMI 21.1
[2020-09-04 09:24] LABS: Basophils % 0.6 % (0.1-2.0); Eosinophils # 0.2 K/mm3 (0.0-0.4); Eosinophils % 4.8 % (0.1-12.0); Hematocrit 30.6 % (42.0-52.0); Lymphocytes # 1.2 K/mm3 (0.7-4.5); Lymphocytes % 36.8 % (10-50); Mean Corpuscular HGB Conc 32.5 g/dL (31.8-35.4); Mean Corpuscular Hemoglobin 30.1 pg (27.0-31.2); Mean Corpuscular Volume 92.6 fl (80-94); Mean Platelet Volume 8.2 fl (7.4-10.4); Monocytes # 0.4 K/mm3 (0.1-1.0); Neutrophils # 1.4 K/mm3 (1.8-7.8); Neutrophils % 45.6 % (37.0-80.0); Platelet Count 408 K/mm3 (142-424); Red Blood Count 3.31 M/mm3 (4.60-6.20); White Blood Count 3.1 K/mm3 (4.8-10.8)
[2020-09-04 09:40] LABS: Chloride 101 mmol/L (98-107); Potassium 3.6 mmoL/L (3.5-5.1); Sodium 137 mmol/L (136-145)
[2020-09-04 09:43] LABS: Alanine Aminotransferase 22 U/L (12-78); Albumin Level 4.1 g/dl (3.5-5.0); Albumin/Globulin Ratio 1.4 (1.1-1.8); Alkaline Phosphatase 142 U/L (38-126); Anion Gap 8.6 mEq/L (5-15); Aspartate Amino Transferase 32 U/L (17-59); Bilirubin,Total 0.4 mg/dl (0.2-1.3); Blood Urea Nitrogen 16 mg/dl (9-20); Calcium 9.4 mg/dl (8.4-10.2); Carbon Dioxide 31 mmol/L (22.0-30.0); Creatinine Clearance Estimated 39 mL/min (50-200); Estimated Glomerular Filt Rate 49 ml/min (>60); GFR (African American) 60 ML/MIN (>60); Glucose 137 mg/dl (74-100); Total Protein,Serum 7.1 g/dl (6.3-8.2)
[2020-09-04 10:55] VITALS: BP 141/69; PULSE 63; RESP 18; TEMP 37.1; O2SAT 97
[2020-09-04 11:10] VITALS: BP 128/71; PULSE 102; RESP 18
[2020-09-04 11:25] VITALS: BP 132/82; PULSE 65; RESP 18
== END 2020-09-04 11:45 | disposition home or self-care (01) ==
LOC: INF 09:07
PROVIDERS: Visit Provider Internal Medicine Medical Oncology
DX: Z51.11 Encounter for antineoplastic chemotherapy (principal); C34.91 Malignant neoplasm of unspecified part of right bronchus or lung
CPT/HCPCS: 80053; 85025; 96413; J1642; J2405; J8501; J9351

== ENCOUNTER 2020-09-13 08:49 | Outpatient (CLI) | payer MEDICARE, SELFPAY ==
[2020-09-13 08:51] VITALS: BMI 22.2
[2020-09-13 09:04] LABS: Basophils % 0.6 % (0.1-2.0); Eosinophils # 0.1 K/mm3 (0.0-0.4); Eosinophils % 1.2 % (0.1-12.0); Hematocrit 28.3 % (42.0-52.0); Lymphocytes # 1.2 K/mm3 (0.7-4.5); Lymphocytes % 27.6 % (10-50); Mean Corpuscular HGB Conc 31.9 g/dL (31.8-35.4); Mean Corpuscular Hemoglobin 29.3 pg (27.0-31.2); Mean Corpuscular Volume 91.7 fl (80-94); Mean Platelet Volume 8.4 fl (7.4-10.4); Monocytes # 0.5 K/mm3 (0.1-1.0); Monocytes % 10.6 % (1.7-9.3); Neutrophils # 2.6 K/mm3 (1.8-7.8); Platelet Count 192 K/mm3 (142-424); Red Blood Count 3.08 M/mm3 (4.60-6.20); Red Cell Distribution Width 15.3 % (11.5-17.5); White Blood Count 4.4 K/mm3 (4.8-10.8)
[2020-09-13 09:20] VITALS: BP 131/52; PULSE 68; RESP 20; TEMP 36.2; O2SAT 98
[2020-09-13 09:50] VITALS: BP 124/65; PULSE 62; RESP 20; O2SAT 98
[2020-09-13 10:20] VITALS: BP 130/62; PULSE 67; RESP 20; O2SAT 97
[2020-09-13 10:32] VITALS: BP 136/69; PULSE 64; RESP 20; O2SAT 98
== END 2020-09-13 10:45 | disposition home or self-care (01) ==
LOC: INF 08:49
PROVIDERS: Visit Provider Internal Medicine Medical Oncology
DX: Z51.11 Encounter for antineoplastic chemotherapy (principal); C34.91 Malignant neoplasm of unspecified part of right bronchus or lung
CPT/HCPCS: 85025; 96372; 96413; J1642; J2405; J2505; J8501; J9351

== ENCOUNTER 2020-09-27 09:20 | Outpatient (CLI) | payer MEDICARE, SELFPAY ==
[2020-09-27 09:26] VITALS: BMI 21.6
[2020-09-27 09:42] LABS: Basophils % 0.3 % (0.1-2.0); Eosinophils # 0.1 K/mm3 (0.0-0.4); Eosinophils % 1.6 % (0.1-12.0); Hematocrit 29.2 % (42.0-52.0); Hemoglobin 9.9 g/dL (14.1-18.0); Lymphocytes # 1.2 K/mm3 (0.7-4.5); Lymphocytes % 20.9 % (10-50); Mean Corpuscular Hemoglobin 31.7 pg (27.0-31.2); Mean Corpuscular Volume 93.3 fl (80-94); Mean Platelet Volume 8.6 fl (7.4-10.4); Monocytes # 0.3 K/mm3 (0.1-1.0); Monocytes % 5.8 % (1.7-9.3); Neutrophils # 4.2 K/mm3 (1.8-7.8); Neutrophils % 71.4 % (37.0-80.0); Platelet Count 218 K/mm3 (142-424); Red Blood Count 3.13 M/mm3 (4.60-6.20); Red Cell Distribution Width 16.4 % (11.5-17.5); White Blood Count 5.9 K/mm3 (4.8-10.8)
[2020-09-27 09:53] LABS: Chloride 102 mmol/L (98-107); Potassium 3.8 mmoL/L (3.5-5.1); Sodium 138 mmol/L (136-145)
[2020-09-27 09:55] LABS: Alanine Aminotransferase 22 U/L (12-78); Aspartate Amino Transferase 30 U/L (17-59); Blood Urea Nitrogen 22 mg/dl (9-20); Creatinine Clearance Estimated 46 mL/min (50-200); Estimated Glomerular Filt Rate 59 ml/min (>60); GFR (African American) 71 ML/MIN (>60)
[2020-09-27 09:56] LABS: Albumin Level 4.3 g/dl (3.5-5.0); Albumin/Globulin Ratio 1.5 (1.1-1.8); Alkaline Phosphatase 139 U/L (38-126); Anion Gap 11.8 mEq/L (5-15); Bilirubin,Total 0.5 mg/dl (0.2-1.3); Calcium 9.2 mg/dl (8.4-10.2); Carbon Dioxide 28 mmol/L (22.0-30.0); Globulin 2.8 g/dL (1.3-3.2); Glucose 136 mg/dl (74-100); Total Protein,Serum 7.1 g/dl (6.3-8.2)
[2020-09-27 10:49] VITALS: BP 133/82; PULSE 68; RESP 18; TEMP 36.4; O2SAT 97
[2020-09-27 11:20] VITALS: BP 155/79; PULSE 71; RESP 18; O2SAT 97
[2020-09-27 12:00] VITALS: BP 148/86; PULSE 62; RESP 18; O2SAT 97
== END 2020-09-27 12:10 | disposition home or self-care (01) ==
LOC: INF 09:24
PROVIDERS: Visit Provider Internal Medicine Medical Oncology
DX: Z51.11 Encounter for antineoplastic chemotherapy (principal); C34.91 Malignant neoplasm of unspecified part of right bronchus or lung
CPT/HCPCS: 80053; 85025; 96413; J1642; J2405; J8501; J9351

== ENCOUNTER 2020-10-04 08:57 | Outpatient (CLI) | payer MEDICARE, SELFPAY ==
[2020-10-04 09:02] VITALS: BMI 22.1
[2020-10-04 09:36] LABS: Basophils % 0.7 % (0.1-2.0); Eosinophils # 0.1 K/mm3 (0.0-0.4); Eosinophils % 2.1 % (0.1-12.0); Hematocrit 27.4 % (42.0-52.0); Hemoglobin 9.4 g/dL (14.1-18.0); Lymphocytes # 0.9 K/mm3 (0.7-4.5); Lymphocytes % 27.3 % (10-50); Mean Corpuscular HGB Conc 34.3 g/dL (31.8-35.4); Mean Corpuscular Hemoglobin 31.1 pg (27.0-31.2); Mean Corpuscular Volume 90.8 fl (80-94); Mean Platelet Volume 7.9 fl (7.4-10.4); Monocytes # 0.2 K/mm3 (0.1-1.0); Platelet Count 254 K/mm3 (142-424); Red Blood Count 3.02 M/mm3 (4.60-6.20); Red Cell Distribution Width 15.7 % (11.5-17.5); White Blood Count 3.1 K/mm3 (4.8-10.8)
[2020-10-04 09:55] VITALS: BP 123/69; PULSE 68; RESP 18; TEMP 36.2; O2SAT 98
[2020-10-04 10:23] VITALS: BP 132/64; PULSE 63; RESP 18; O2SAT 98
[2020-10-04 10:53] VITALS: BP 130/67; PULSE 67; RESP 18; O2SAT 99
[2020-10-04 11:04] VITALS: BP 119/69; PULSE 61; RESP 18; O2SAT 98
== END 2020-10-04 11:10 | disposition home or self-care (01) ==
LOC: INF 08:57
PROVIDERS: Visit Provider Internal Medicine Medical Oncology
DX: Z51.11 Encounter for antineoplastic chemotherapy (principal); C34.91 Malignant neoplasm of unspecified part of right bronchus or lung
CPT/HCPCS: 85025; 96372; 96413; J1642; J2405; J2505; J8501; J9351

== ENCOUNTER 2020-10-18 09:25 | Outpatient (CLI) | payer MEDICARE, SELFPAY ==
[2020-10-18 09:30] VITALS: BMI 21.3
[2020-10-18 09:52] LABS: Chloride 104 mmol/L (98-107)
[2020-10-18 09:53] LABS: Potassium 3.8 mmoL/L (3.5-5.1); Sodium 139 mmol/L (136-145)
[2020-10-18 09:55] LABS: Alanine Aminotransferase 20 U/L (12-78); Alkaline Phosphatase 132 U/L (38-126); Aspartate Amino Transferase 25 U/L (17-59); Bilirubin,Total 0.5 mg/dl (0.2-1.3); Blood Urea Nitrogen 18 mg/dl (9-20); Creatinine Clearance Estimated 41 mL/min (50-200); Estimated Glomerular Filt Rate 54 ml/min (>60); GFR (African American) 65 ML/MIN (>60)
[2020-10-18 09:56] LABS: Albumin Level 4.4 g/dl (3.5-5.0); Albumin/Globulin Ratio 1.6 (1.1-1.8); Anion Gap 8.8 mEq/L (5-15); Calcium 9.2 mg/dl (8.4-10.2); Carbon Dioxide 30 mmol/L (22.0-30.0); Globulin 2.8 g/dL (1.3-3.2); Glucose 127 mg/dl (74-100); Total Protein,Serum 7.2 g/dl (6.3-8.2)
[2020-10-18 10:11] LABS: Basophils % 0.2 % (0.1-2.0); Hemoglobin 9.1 g/dL (14.1-18.0); Lymphocytes % 24.1 % (10-50); Mean Corpuscular HGB Conc 32.4 g/dL (31.8-35.4); Mean Corpuscular Hemoglobin 31.1 pg (27.0-31.2); Mean Platelet Volume 8.4 fl (7.4-10.4); Monocytes # 0.3 K/mm3 (0.1-1.0); Monocytes % 7.9 % (1.7-9.3); Neutrophils # 2.8 K/mm3 (1.8-7.8); Neutrophils % 66.8 % (37.0-80.0); Platelet Count 174 K/mm3 (142-424); Red Blood Count 2.92 M/mm3 (4.60-6.20); Red Cell Distribution Width 16.4 % (11.5-17.5); White Blood Count 4.2 K/mm3 (4.8-10.8)
== END 2020-10-18 10:50 | disposition home or self-care (01) ==
LOC: INF 09:29
PROVIDERS: Visit Provider Internal Medicine Medical Oncology
DX: C34.90 Malignant neoplasm of unspecified part of unspecified bronchus or lung (principal); Z45.2 Encounter for adjustment and management of vascular access device
CPT/HCPCS: 80053; 85025; J1642

== ENCOUNTER 2020-11-08 08:07 | Outpatient (CLI) | payer MEDICARE, SELFPAY ==
[2020-11-08 08:08] VITALS: BMI 22.2
[2020-11-08 08:47] LABS: Basophils % 0.3 % (0.1-2.0); Eosinophils # 0.2 K/mm3 (0.0-0.4); Eosinophils % 2.4 % (0.1-12.0); Hematocrit 31.5 % (42.0-52.0); Hemoglobin 10.3 g/dL (14.1-18.0); Lymphocytes # 1.2 K/mm3 (0.7-4.5); Lymphocytes % 18.2 % (10-50); Mean Corpuscular HGB Conc 32.7 g/dL (31.8-35.4); Mean Corpuscular Hemoglobin 30.9 pg (27.0-31.2); Mean Corpuscular Volume 94.6 fl (80-94); Mean Platelet Volume 7.9 fl (7.4-10.4); Monocytes # 0.5 K/mm3 (0.1-1.0); Monocytes % 8.1 % (1.7-9.3); Neutrophils # 4.8 K/mm3 (1.8-7.8); Platelet Count 172 K/mm3 (142-424); Red Blood Count 3.33 M/mm3 (4.60-6.20); Red Cell Distribution Width 14.7 % (11.5-17.5); White Blood Count 6.7 K/mm3 (4.8-10.8)
[2020-11-08 08:52] LABS: Alanine Aminotransferase 22 U/L (12-78); Albumin Level 4.4 g/dl (3.5-5.0); Albumin/Globulin Ratio 1.6 (1.1-1.8); Alkaline Phosphatase 119 U/L (38-126); Anion Gap 11.9 mEq/L (5-15); Aspartate Amino Transferase 30 U/L (17-59); Bilirubin,Total 0.4 mg/dl (0.2-1.3); Blood Urea Nitrogen 23 mg/dl (9-20); Calcium 9.1 mg/dl (8.4-10.2); Carbon Dioxide 28 mmol/L (22.0-30.0); Chloride 102 mmol/L (98-107); Creatinine Clearance Estimated 40 mL/min (50-200); Estimated Glomerular Filt Rate 49 ml/min (>60); GFR (African American) 60 ML/MIN (>60); Globulin 2.8 g/dL (1.3-3.2); Glucose 123 mg/dl (74-100); Potassium 3.9 mmoL/L (3.5-5.1); Sodium 138 mmol/L (136-145); Total Protein,Serum 7.2 g/dl (6.3-8.2)
[2020-11-08 09:29] VITALS: BP 147/73; PULSE 64; RESP 18; TEMP 36.3; O2SAT 98
[2020-11-08 10:08] VITALS: BP 140/70; PULSE 69; RESP 18; O2SAT 98
[2020-11-08 10:38] VITALS: BP 151/74; PULSE 56; RESP 18; O2SAT 99
[2020-11-08 10:54] VITALS: BP 148/72; PULSE 61; RESP 18; O2SAT 98
== END 2020-11-08 10:54 | disposition home or self-care (01) ==
LOC: INF 08:07
PROVIDERS: Visit Provider Internal Medicine Medical Oncology
DX: Z51.11 Encounter for antineoplastic chemotherapy (principal); C34.91 Malignant neoplasm of unspecified part of right bronchus or lung
CPT/HCPCS: 80053; 85025; 96413; J1642; J2405; J8501; J9351

== ENCOUNTER 2020-11-15 08:51 | Outpatient (CLI) | payer MEDICARE, SELFPAY ==
[2020-11-15 08:53] VITALS: BMI 21.9
[2020-11-15 09:07] LABS: Basophils % 0.4 % (0.1-2.0); Eosinophils # 0.1 K/mm3 (0.0-0.4); Eosinophils % 2.8 % (0.1-12.0); Hematocrit 32.9 % (42.0-52.0); Hemoglobin 10.3 g/dL (14.1-18.0); Lymphocytes # 1.1 K/mm3 (0.7-4.5); Lymphocytes % 24.2 % (10-50); Mean Corpuscular HGB Conc 31.3 g/dL (31.8-35.4); Mean Corpuscular Hemoglobin 31.3 pg (27.0-31.2); Monocytes # 0.3 K/mm3 (0.1-1.0); Monocytes % 5.8 % (1.7-9.3); Neutrophils # 3.1 K/mm3 (1.8-7.8); Neutrophils % 66.8 % (37.0-80.0); Platelet Count 125 K/mm3 (142-424); Red Blood Count 3.29 M/mm3 (4.60-6.20); Red Cell Distribution Width 14.1 % (11.5-17.5); White Blood Count 4.6 K/mm3 (4.8-10.8)
[2020-11-15 09:13] VITALS: BP 128/71; PULSE 56; RESP 20; TEMP 36.4; O2SAT 98
[2020-11-15 09:53] VITALS: BP 132/71; PULSE 50; RESP 20; O2SAT 98
[2020-11-15 10:23] VITALS: BP 139/84; PULSE 53; RESP 20; O2SAT 98
[2020-11-15 10:40] VITALS: BP 129/76; PULSE 51; RESP 20; O2SAT 97
== END 2020-11-15 10:40 | disposition home or self-care (01) ==
LOC: INF 08:51
PROVIDERS: Visit Provider Internal Medicine Medical Oncology
DX: Z51.11 Encounter for antineoplastic chemotherapy (principal); C34.90 Malignant neoplasm of unspecified part of unspecified bronchus or lung; Z87.891 Personal history of nicotine dependence
CPT/HCPCS: 85025; 96372; 96413; J1642; J2405; J2505; J8501; J9351

== ENCOUNTER 2020-11-21 12:40 | Emergency (ER) | payer MEDICARE, SELFPAY ==
[2020-11-21] VITALS (8 sets, daily range): BP systolic 124–179; BP diastolic 70–82; PULSE 66–81; RESP 14–18; TEMP 36.7–36.8; O2SAT 95–100; BMI 21.6
--- NOTE | 2020-11-21 12:45 | HMH.EDGENADL ---
ED Disposition Clinical Impression: Vertigo Disposition: Home, Self-Care Condition on Discharge: Good Instructions: Vertigo Referrals: Jose Enrique Ha MD [Primary Care Provider] - 3 days Time of Disposition: 14:42 - Critical Care Critical Care Time: No Attestation: On , the high probability of a clinically significant, sudden or life threatening deterioration of the following system(s) required my full and direct attention, intervention and personal management. The time I documented below is in addition to time spent performing reported procedures but includes the following listed in this critical care notation. Medical Decision Making - Medical Records Medical records reviewed: Yes: I reviewed the patient's medical records. - Thomas Inquiry Pt receiving controlled substance: No Vital Signs: 11/21/20 12:41 11/21/20 13:15 11/21/20 13:30 Temperature 98.1 F Temperature Source Oral Pulse Rate 72 66 Pulse Rate [Right] 81 Respiratory Rate 14 Blood Pressure 135/82 Blood Pressure [Right Radial Artery] 179/80 H Blood Pressure Mean 103 Blood Pressure Mean [Right Radial Artery] 113 02 Sat by Pulse Oximetry 96 95 100 Oxygen Delivery Method Room Air 11/21/20 13:45 11/21/20 14:00 Temperature Temperature Source Pulse Rate 73 67 Pulse Rate [Right] Respiratory Rate Blood Pressure 124/74 Blood Pressure [Right Radial Artery] Blood Pressure Mean 97 Blood Pressure Mean [Right Radial Artery] 02 Sat by Pulse Oximetry 99 99 Oxygen Delivery Method - Lab Data Lab results reviewed: Yes: I reviewed the patient's lab results. Lab Results 11/21/20 13:08: WBC 4.8, RBC 3.12 L, Hgb 9.8 L, Hct 29.6 L, MCV 95.0 H, MCH 31.5 H, MCHC 33.2, RDW 14.1, Plt Count 59 L, MPV 8.5, Neut % (Auto) 76.7, Lymph % (Auto) 18.7, [place] % (Auto) 2.8, Eos % (Auto) 1.5, Baso % (Auto) 0.3, Neut # (Auto) 3.7, Lymph # (Auto) 0.9, [place] # (Auto) 0.1, Eos # (Auto) 0.1, Baso # (Auto) 0.0 11/21/20 13:08: Sodium 139, Potassium 4.3, Chloride 105, Carbon Dioxide 26, Anion Gap 12.3, BUN 32 H, Creatinine 1.30 H, Estimated Creat Clear 42, Estimated GFR 54 L, Est GFR ( Amer) 65, Glucose 123 H, Calcium 9.3, Total Bilirubin 0.3, AST 25, ALT 21, Alkaline Phosphatase 147 H, Total Protein 7.4, Albumin 4.4, Globulin 3.0, Albumin/Globulin Ratio 1.5 Result diagrams: 11/21/20 13:08 11/21/20 13:08 Orders (Tests/Meds): ED MEDICATIONS Discontinued Medications Generic Name Dose Route Start Last Admin Trade Name Freq PRN Reason Stop Dose Admin Meclizine HCl 50 mg 11/21/20 13:38 11/21/20 13:49 Meclizine 25mg Tablet PO 11/21/20 13:39 50 mg ONCE ONE Administration ORDERS Category Date Time Status UA [Urinalysis and Microscopic] Stat Lab 11/21/20 12:51 Ordered - Radiology Data #1 Image(s): Chest Image Reviewed: Yes I have reviewed radiologist's interpretation Preliminary Findings: Normal/NAD - ECG Data Tracing #1 75 bpm, normal sinus rhythm, slightly widened QRS complex, no ectopy, no ST elevation or depression. ECG initial impression date: 11/21/20 ECG initial impression time: 13:13 Medical Decision Narrative: 75yo M evaluated for vertigo and hemoptysis. Patient is in no acute distress on initial evaluation. He had no episodes of hemoptysis during his initial observation emergency department. Labs and EKG unremarkable. Chest x-ray unremarkable. Patient's vital signs are appropriate. Has been treated with Antivert in the emergency department. On follow-up, the patient is tolerating p.o. intake, states his symptoms have improved with Antivert. At this point he is appropriate and stable for discharge home. We will provide the patient a prescription for Antivert. Encouraged him to follow-up with his PCP by the end of the week. General Adult HPI - General Stated complaint: cancer treatments, spitting up blood,dizzy Time Seen by Provider: 11/21/20 12:46 Mode of Arrival: Ambula
--- NOTE | 2020-11-21 12:49 | XR_ITS ---
PROCEDURE: XR CHEST 2V CLINICAL HISTORY: hemoptysis Lung cancer COMPARISON: CR CXR CHEST(2 VIEWS-NOT PORTABLE) from 05/13/2013 CR XR CHEST PORTABLE from 11/10/2019 CR XR CHEST 2V from 11/12/[address] CHEST W CON from 08/22/2020 FINDINGS: The cardiomediastinal silhouette and pulmonary vascularity are within normal limits. MediPort catheter is present from left subclavian approach with the tip in the region the SVC. Lungs are clear. Degenerative change thoracic spine. Mild degenerative change right shoulder. Coronary artery calcifications are noted. IMPRESSION: No acute findings. Dictated by: Santi Lucero MD 11/21/2020 13:41 Santi Lucero MD in [place] 11/21/2020 13:41
--- NOTE | 2020-11-21 13:11 | ECG_ITS ---
APPROVED REPORT Exam: Resting ECG HR:75 bpm ECG Measurements Heart Rate 75 AXES OR 192 P 57 QRSd 130 QRS 0 QT 414 T 82 QTc 462 Conclusion Normal sinus rhythm LBBB Abnormal ECG Electronically signed by : Jose Enrique Ha, 11/21/2020 17:55:40
[2020-11-21 13:31] LABS: Basophils % 0.3 % (0.1-2.0); Eosinophils # 0.1 K/mm3 (0.0-0.4); Eosinophils % 1.5 % (0.1-12.0); Hematocrit 29.6 % (42.0-52.0); Hemoglobin 9.8 g/dL (14.1-18.0); Lymphocytes # 0.9 K/mm3 (0.7-4.5); Lymphocytes % 18.7 % (10-50); Mean Corpuscular HGB Conc 33.2 g/dL (31.8-35.4); Mean Corpuscular Hemoglobin 31.5 pg (27.0-31.2); Mean Platelet Volume 8.5 fl (7.4-10.4); Monocytes # 0.1 K/mm3 (0.1-1.0); Monocytes % 2.8 % (1.7-9.3); Neutrophils # 3.7 K/mm3 (1.8-7.8); Neutrophils % 76.7 % (37.0-80.0); Platelet Count 59 K/mm3 (142-424); Red Blood Count 3.12 M/mm3 (4.60-6.20); Red Cell Distribution Width 14.1 % (11.5-17.5); White Blood Count 4.8 K/mm3 (4.8-10.8)
[2020-11-21 13:36] LABS: Chloride 105 mmol/L (98-107); Potassium 4.3 mmoL/L (3.5-5.1); Sodium 139 mmol/L (136-145)
[2020-11-21 13:38] LABS: Alanine Aminotransferase 21 U/L (12-78); Aspartate Amino Transferase 25 U/L (17-59); Blood Urea Nitrogen 32 mg/dl (9-20); Creatinine Clearance Estimated 42 mL/min (50-200); Estimated Glomerular Filt Rate 54 ml/min (>60); GFR (African American) 65 ML/MIN (>60)
[2020-11-21 13:39] LABS: Albumin Level 4.4 g/dl (3.5-5.0); Albumin/Globulin Ratio 1.5 (1.1-1.8); Alkaline Phosphatase 147 U/L (38-126); Anion Gap 12.3 mEq/L (5-15); Bilirubin,Total 0.3 mg/dl (0.2-1.3); Calcium 9.3 mg/dl (8.4-10.2); Carbon Dioxide 26 mmol/L (22.0-30.0); Glucose 123 mg/dl (74-100); Total Protein,Serum 7.4 g/dl (6.3-8.2)
== END 2020-11-21 15:02 | disposition home or self-care (01) ==
PROVIDERS: Emergency Provider Family Medicine; PCP Internal Medicine Adolescent Medicine
DX: R42 Dizziness and giddiness (principal); C34.90 Malignant neoplasm of unspecified part of unspecified bronchus or lung; E78.5 Hyperlipidemia, unspecified; J44.9 Chronic obstructive pulmonary disease, unspecified; I10 Essential (primary) hypertension; I47.1 Supraventricular tachycardia; Z90.49 Acquired absence of other specified parts of digestive tract; Z87.891 Personal history of nicotine dependence; Z79.899 Other long term (current) drug therapy
CPT/HCPCS: 71046; 80053; 85025; 93005; 99282; J1642

== ENCOUNTER 2020-11-27 08:55 | Outpatient (CLI) | payer MEDICARE, SELFPAY ==
--- NOTE | 2020-11-27 | CT_ITS ---
PROCEDURE: CT CHEST WO/W CON CLINCAL INDICATION: LUNG CANCER Follow up A few episodes of hemoptysis in the last 2 weeks Currently receiving chemo COMPARISON: CT CT CHEST W CON from 08/22/2020 TECHNIQUE: IV Contrast: 75ml Isovue 370 Axial images obtained with sagittal and coronal reformats. All CT scans at the facility use one or more dose reduction, viz: automated exposure control, ma/kV adjustment per patient size (including targeted exams where dose is matched to indication, i.e. head), or iterative reconstruction technique. FINDINGS: HEART AND MEDIASTINAL STRUCTURES: Mediastinal mass/adenopathy has increased in size with nodes in the pre carinal region and subcarinal area measuring a maximum 4.6 by 3 cm previously at 2.3 by 2.1 cm. There is adenopathy in the right hilar region surrounding the bronchus intermedius contiguous with the subcarinal mass. This has developed since the previous exam. There is narrowing of the bronchus intermedius. No left hilar adenopathy evident. LUNGS AND PLEURAL SPACES: COPD with biapical scarring. Spiculated nodule in the superior segment of the right lower lobe has slightly increased in size measuring 1.5 by 0.8 cm previously measuring 1.2 x 0.8 cm. There is minimal subpleural nodularity in the right upper lobe anteriorly not readily apparent on the previous exam. Scattered small nodular opacities 4 mm or less are stable. There is a new 4 mm nodule in the left upper lobe anteriorly image 38 BONY STRUCTURES: No acute bony abnormalities apparent. UPPER ABDOMEN: See abdomen report ADDITIONAL FINDINGS: No other significant abnormalities. IMPRESSION: Increasing mediastinal adenopathy as described above now encasing the right bronchus intermedius with narrowing of the bronchus intermedius as well as slight increase in size of the spiculated nodule in the right lower lobe superior segment consistent with progression lung carcinoma and mediastinal/hilar adenopathy. A new 4 mm nodules present in the left upper lobe raising the suspicion of a metastatic focus. Dictated by: Santi Lucero MD 11/28/2020 09:43 Santi Lucero MD in [facility] 11/28/2020 09:43
--- NOTE | 2020-11-27 | CT_ITS ---
PROCEDURE: CT ABDOMEN PELVIS WO/W CON CLINICAL INDICATION: LUNG CANCER Follow up Has had hemoptysis off and on in the last couple of weeks Currently receiving chemo COMPARISON: CT CT ABDOMEN PELVIS W CON from 01/16/[address] ABDOMEN PELVIS W CON from 08/22/2020 TECHNIQUE: IV Contrast: 75ML Isovue 370 Oral Contrast None Axial images obtained with sagittal and coronal reformats. All CT scans at the facility use one or more dose reduction, viz: automated exposure control, ma/kV adjustment per patient size (including targeted exams where dose is matched to indication, i.e. head), or iterative reconstruction technique. FINDINGS: There has been a prior cholecystectomy. No liver lesions are identified. Coronary artery calcifications are noted. The spleen, adrenal glands, and pancreas has an unremarkable appearance. No renal or ureteral calculi. There is a small rounded soft tissue density posterior and lateral to the right kidney which measures 7 mm. This was not present on the previous exam. There is an 11 mm left renal cyst. There is a mild amount of retained colonic feces. No intestinal obstruction or free air. No evidence of appendicitis. Colonic diverticulosis without diverticulitis. There is a linear area of sclerosis in the right femoral neck and may be due to prior gamma nail placement. There is degenerative disc disease at L5-S1 with mild anterolisthesis of L5. No bony destructive lesions identified. IMPRESSION: 1. There is a new small rounded soft tissue density in the retroperitoneum on the right posterior lateral to the right kidney measuring 7 mm. Etiology is indeterminate. A metastatic focus however would be a consideration. 2. The remaining abdomen and pelvis have an unremarkable appearance. Dictated by: Santi Lucero MD 11/28/2020 09:55 Santi Lucero MD in [facility] 11/28/2020 09:55
[2020-11-27 08:52] VITALS: BMI 21.7
[2020-11-27 09:09] LABS: Chloride 105 mmol/L (98-107); Sodium 138 mmol/L (136-145)
[2020-11-27 09:11] LABS: Basophils % 0.5 % (0.1-2.0); Eosinophils # 0.1 K/mm3 (0.0-0.4); Hemoglobin 9.3 g/dL (14.1-18.0); Lymphocytes # 0.9 K/mm3 (0.7-4.5); Lymphocytes % 28.3 % (10-50); Mean Corpuscular HGB Conc 33.3 g/dL (31.8-35.4); Mean Corpuscular Hemoglobin 31.6 pg (27.0-31.2); Mean Corpuscular Volume 94.9 fl (80-94); Mean Platelet Volume 8.9 fl (7.4-10.4); Monocytes # 0.2 K/mm3 (0.1-1.0); Monocytes % 6.1 % (1.7-9.3); Neutrophils # 1.9 K/mm3 (1.8-7.8); Neutrophils % 63.1 % (37.0-80.0); Platelet Count 77 K/mm3 (142-424); Red Blood Count 2.95 M/mm3 (4.60-6.20); Red Cell Distribution Width 14.1 % (11.5-17.5)
[2020-11-27 09:12] LABS: Alanine Aminotransferase 17 U/L (12-78); Albumin Level 4.2 g/dl (3.5-5.0); Albumin/Globulin Ratio 1.7 (1.1-1.8); Alkaline Phosphatase 127 U/L (38-126); Aspartate Amino Transferase 22 U/L (17-59); Bilirubin,Total 0.3 mg/dl (0.2-1.3); Blood Urea Nitrogen 23 mg/dl (9-20); Carbon Dioxide 27 mmol/L (22.0-30.0); Creatinine Clearance Estimated 42 mL/min (50-200); Estimated Glomerular Filt Rate 54 ml/min (>60); GFR (African American) 65 ML/MIN (>60); Globulin 2.5 g/dL (1.3-3.2); Glucose 128 mg/dl (74-100); Total Protein,Serum 6.7 g/dl (6.3-8.2)
== END 2020-11-27 10:07 | disposition home or self-care (01) ==
LOC: INF 08:56
PROVIDERS: PCP Internal Medicine Adolescent Medicine; Visit Provider Internal Medicine Medical Oncology
DX: C34.90 Malignant neoplasm of unspecified part of unspecified bronchus or lung (principal); Z03.89 Encounter for observation for other suspected diseases and conditions ruled out
CPT/HCPCS: 71260; 71270; 74177; 74178; 80053; 85025; J1642; Q9967

== ENCOUNTER → 2020-12-06 08:26 | Outpatient (CLI) | payer MEDICARE, SELFPAY ==
--- NOTE | 2020-12-06 08:31 | MR_ITS ---
PROCEDURE: MR HEAD/BRAIN WO/W CON CLINICAL INDICATION: LUNG CANCER, R/O BRAIN METS COMPARISON: MR MR HEAD/BRAIN WO/W CON from 11/08/2019 TECHNIQUE: Routine multiplanar multi echo sequences are performed without gadolinium enhancement. FINDINGS: Focal T2 hyperintensities are noted in the left cerebellar hemisphere, right medial temporal lobe, right high parietal lobe (5, 18), demonstrate post-contrast MR enhancement. The largest of these in the left cerebellar hemisphere measures 9 millimeters. No significant associated edema noted. No evidence of intra or extra-axial hemorrhage. No midline shift or mass effect. Scattered periventricular and subcortical white matter T2 and FLAIR hyperintensities, may represent microvascular changes. Brain parenchymal volume is appropriate for the age of the patient. The visualized osseous structures are unremarkable. Paranasal sinuses and mastoid air cells are clear. IMPRESSION: Enhancing focal T2 and FLAIR hyperintensities in the left cerebellar hemisphere, right medial temporal lobe and right high parietal white matter, suspicious for brain metastasis. No significant adjacent edema noted. No midline shift or mass effect. Microvascular changes. Dictated by: Halle Miller 12/06/2020 15:42 Halle Miller in [facility] 12/06/2020 15:42
== END ==
PROVIDERS: PCP Internal Medicine Adolescent Medicine; Visit Provider Internal Medicine Medical Oncology
DX: C34.91 Malignant neoplasm of unspecified part of right bronchus or lung (principal); Z03.89 Encounter for observation for other suspected diseases and conditions ruled out
CPT/HCPCS: 70553; A9576

== ENCOUNTER 2020-12-20 08:25 | Outpatient (CLI) | payer MEDICARE, SELFPAY ==
[2020-12-20 08:31] VITALS: BMI 21.6
[2020-12-20 08:48] LABS: Basophils % 0.3 % (0.1-2.0); Eosinophils # 0.1 K/mm3 (0.0-0.4); Eosinophils % 1.6 % (0.1-12.0); Hematocrit 33.1 % (42.0-52.0); Hemoglobin 10.9 g/dL (14.1-18.0); Lymphocytes # 1.6 K/mm3 (0.7-4.5); Lymphocytes % 19.3 % (10-50); Mean Corpuscular Hemoglobin 30.4 pg (27.0-31.2); Mean Corpuscular Volume 92.2 fl (80-94); Mean Platelet Volume 8.2 fl (7.4-10.4); Monocytes # 0.7 K/mm3 (0.1-1.0); Monocytes % 8.1 % (1.7-9.3); Neutrophils # 5.9 K/mm3 (1.8-7.8); Neutrophils % 70.8 % (37.0-80.0); Platelet Count 191 K/mm3 (142-424); Red Blood Count 3.59 M/mm3 (4.60-6.20); Red Cell Distribution Width 14.1 % (11.5-17.5); White Blood Count 8.3 K/mm3 (4.8-10.8)
[2020-12-20 08:57] LABS: Chloride 101 mmol/L (98-107); Potassium 3.9 mmoL/L (3.5-5.1); Sodium 138 mmol/L (136-145)
[2020-12-20 08:59] LABS: Blood Urea Nitrogen 24 mg/dl (9-20); Creatinine Clearance Estimated 42 mL/min (50-200); Estimated Glomerular Filt Rate 54 ml/min (>60); GFR (African American) 65 ML/MIN (>60)
[2020-12-20 09:00] LABS: Alanine Aminotransferase 28 U/L (12-78); Albumin Level 4.7 g/dl (3.5-5.0); Albumin/Globulin Ratio 1.9 (1.1-1.8); Alkaline Phosphatase 145 U/L (38-126); Anion Gap 13.9 mEq/L (5-15); Aspartate Amino Transferase 34 U/L (17-59); Bilirubin,Total 0.5 mg/dl (0.2-1.3); Calcium 9.3 mg/dl (8.4-10.2); Carbon Dioxide 27 mmol/L (22.0-30.0); Globulin 2.5 g/dL (1.3-3.2); Glucose 131 mg/dl (74-100); Total Protein,Serum 7.2 g/dl (6.3-8.2)
[2020-12-20 11:10] VITALS: BP 122/70; PULSE 65; RESP 18; TEMP 36.2; O2SAT 98
[2020-12-20 11:25] VITALS: BP 133/69; PULSE 63; RESP 18
[2020-12-20 11:40] VITALS: BP 135/73; PULSE 64; RESP 18
[2020-12-20 11:55] VITALS: BP 148/73; PULSE 64; RESP 18
[2020-12-20 12:10] VITALS: BP 137/76; PULSE 65; RESP 18
== END 2020-12-20 12:30 | disposition home or self-care (01) ==
LOC: INF 08:30
PROVIDERS: Visit Provider Internal Medicine Medical Oncology
DX: C34.90 Malignant neoplasm of unspecified part of unspecified bronchus or lung (principal)
CPT/HCPCS: 80053; 85025; 96413; J1642; J2405; J8501; J9223

== ENCOUNTER 2020-12-27 10:57 | Outpatient (CLI) | payer MEDICARE, SELFPAY ==
[2020-12-27 11:00] VITALS: BMI 20.7
[2020-12-27 11:16] LABS: Basophils % 0.1 % (0.1-2.0); Chloride 104 mmol/L (98-107); Eosinophils # 0.2 K/mm3 (0.0-0.4); Eosinophils % 2.9 % (0.1-12.0); Hematocrit 33.9 % (42.0-52.0); Hemoglobin 11.2 g/dL (14.1-18.0); Lymphocytes # 1.1 K/mm3 (0.7-4.5); Lymphocytes % 20.1 % (10-50); Mean Corpuscular HGB Conc 33.1 g/dL (31.8-35.4); Mean Corpuscular Volume 93.6 fl (80-94); Mean Platelet Volume 9.1 fl (7.4-10.4); Monocytes # 0.1 K/mm3 (0.1-1.0); Monocytes % 1.4 % (1.7-9.3); Neutrophils % 75.6 % (37.0-80.0); Platelet Count 103 K/mm3 (142-424); Potassium 4.5 mmoL/L (3.5-5.1); Red Blood Count 3.62 M/mm3 (4.60-6.20); Red Cell Distribution Width 14.1 % (11.5-17.5); Sodium 137 mmol/L (136-145); White Blood Count 5.3 K/mm3 (4.8-10.8)
[2020-12-27 11:19] LABS: Alanine Aminotransferase 155 U/L (12-78); Albumin Level 4.3 g/dl (3.5-5.0); Albumin/Globulin Ratio 1.6 (1.1-1.8); Alkaline Phosphatase 133 U/L (38-126); Anion Gap 12.5 mEq/L (5-15); Aspartate Amino Transferase 59 U/L (17-59); Bilirubin,Total 0.6 mg/dl (0.2-1.3); Blood Urea Nitrogen 54 mg/dl (9-20); Carbon Dioxide 25 mmol/L (22.0-30.0); Creatinine Clearance Estimated 34 mL/min (50-200); Estimated Glomerular Filt Rate 42 ml/min (>60); GFR (African American) 51 ML/MIN (>60); Globulin 2.7 g/dL (1.3-3.2)
[2020-12-27 11:20] LABS: Calcium 8.9 mg/dl (8.4-10.2); Glucose 121 mg/dl (74-100)
[2020-12-27 11:44] VITALS: BP 121/71; PULSE 70; RESP 20; TEMP 36.4; O2SAT 100
[2020-12-27 12:14] VITALS: BP 125/69; PULSE 75; RESP 20; O2SAT 99
[2020-12-27 12:45] VITALS: BP 144/73; PULSE 69; RESP 18; O2SAT 99
== END 2020-12-27 12:50 | disposition home or self-care (01) ==
LOC: INF 10:57
PROVIDERS: Visit Provider Internal Medicine Medical Oncology
DX: C34.90 Malignant neoplasm of unspecified part of unspecified bronchus or lung (principal); Z45.2 Encounter for adjustment and management of vascular access device
CPT/HCPCS: 80053; 85025; 96360; 96361; 96375; J1642; J2405

== ENCOUNTER 2020-12-28 09:25 | Outpatient (CLI) | payer MEDICARE, SELFPAY ==
[2020-12-28 09:26] VITALS: BMI 21.9
[2020-12-28 09:45] VITALS: BP 144/75; PULSE 69; RESP 17; TEMP 36.4; O2SAT 94
[2020-12-28 09:54] LABS: Eosinophils % 0.4 % (0.1-12.0); Hematocrit 31.3 % (42.0-52.0); Hemoglobin 10.3 g/dL (14.1-18.0); Lymphocytes # 0.9 K/mm3 (0.7-4.5); Lymphocytes % 11.9 % (10-50); Mean Corpuscular HGB Conc 32.8 g/dL (31.8-35.4); Mean Corpuscular Volume 94.4 fl (80-94); Mean Platelet Volume 8.4 fl (7.4-10.4); Monocytes # 0.1 K/mm3 (0.1-1.0); Monocytes % 0.7 % (1.7-9.3); Neutrophils # 6.4 K/mm3 (1.8-7.8); Platelet Count 84 K/mm3 (142-424); Red Blood Count 3.32 M/mm3 (4.60-6.20); White Blood Count 7.4 K/mm3 (4.8-10.8)
[2020-12-28 09:55] LABS: Alanine Aminotransferase 117 U/L (12-78); Albumin Level 4.1 g/dl (3.5-5.0); Albumin/Globulin Ratio 1.6 (1.1-1.8); Alkaline Phosphatase 126 U/L (38-126); Anion Gap 14.3 mEq/L (5-15); Aspartate Amino Transferase 44 U/L (17-59); Bilirubin,Total 0.5 mg/dl (0.2-1.3); Blood Urea Nitrogen 44 mg/dl (9-20); Calcium 8.7 mg/dl (8.4-10.2); Carbon Dioxide 22 mmol/L (22.0-30.0); Chloride 105 mmol/L (98-107); Creatinine Clearance Estimated 42 mL/min (50-200); Estimated Glomerular Filt Rate 54 ml/min (>60); GFR (African American) 65 ML/MIN (>60); Globulin 2.6 g/dL (1.3-3.2); Glucose 116 mg/dl (74-100); Potassium 4.3 mmoL/L (3.5-5.1); Sodium 137 mmol/L (136-145); Total Protein,Serum 6.7 g/dl (6.3-8.2)
[2020-12-28 10:00] LABS: MANUAL DIFFERENTIAL MANUAL DIFFERENTIAL (MANUAL DIFF)
[2020-12-28 10:15] VITALS: BP 127/81; PULSE 66; RESP 17
[2020-12-28 10:16] LABS: Lymphocytes % 11 % (10-50); Monocytes % 1 % (2-9); Neutrophils % 88 % (42-76); Platelet Estimate Moderate Decrease; RBC Morphology Normal; Total Cells Counted 100
[2020-12-28 10:45] VITALS: BP 141/82; PULSE 62; RESP 16; O2SAT 95
== END 2020-12-28 10:55 | disposition home or self-care (01) ==
LOC: INF 09:25
PROVIDERS: Visit Provider Internal Medicine Medical Oncology
DX: C34.90 Malignant neoplasm of unspecified part of unspecified bronchus or lung (principal)
CPT/HCPCS: 80053; 85007; 85025; 96360; 96375; J1642; J2405

== ENCOUNTER 2020-12-31 09:21 | Outpatient (CLI) | payer MEDICARE, SELFPAY ==
[2020-12-31 09:30] VITALS: BP 117/71; PULSE 75; RESP 20; TEMP 36.2; O2SAT 98
[2020-12-31 10:00] VITALS: BP 121/76; PULSE 72; RESP 20; O2SAT 98
[2020-12-31 10:34] VITALS: BP 131/68; PULSE 78; RESP 20; O2SAT 97
== END 2020-12-31 10:34 | disposition home or self-care (01) ==
LOC: INF 09:21
PROVIDERS: Visit Provider Internal Medicine Medical Oncology
DX: C34.90 Malignant neoplasm of unspecified part of unspecified bronchus or lung (principal)
CPT/HCPCS: 96360; 96375; J1642; J2405

== ENCOUNTER 2021-01-04 08:48 | Outpatient (CLI) | payer MEDICARE, SELFPAY ==
[2021-01-04 08:49] VITALS: BMI 21.9
[2021-01-04 09:10] LABS: Chloride 96 mmol/L (98-107); Sodium 131 mmol/L (136-145)
[2021-01-04 09:13] LABS: Alanine Aminotransferase 34 U/L (12-78); Albumin Level 3.7 g/dl (3.5-5.0); Albumin/Globulin Ratio 1.4 (1.1-1.8); Alkaline Phosphatase 120 U/L (38-126); Aspartate Amino Transferase 22 U/L (17-59); Basophils % 0.2 % (0.1-2.0); Bilirubin,Total 0.8 mg/dl (0.2-1.3); Blood Urea Nitrogen 24 mg/dl (9-20); Calcium 8.7 mg/dl (8.4-10.2); Carbon Dioxide 28 mmol/L (22.0-30.0); Creatinine Clearance Estimated 42 mL/min (50-200); Eosinophils % 0.8 % (0.1-12.0); Estimated Glomerular Filt Rate 54 ml/min (>60); GFR (African American) 65 ML/MIN (>60); Globulin 2.6 g/dL (1.3-3.2); Glucose 124 mg/dl (74-100); Hematocrit 26.4 % (42.0-52.0); Hemoglobin 9.1 g/dL (14.1-18.0); Lymphocytes # 0.7 K/mm3 (0.7-4.5); Lymphocytes % 33.8 % (10-50); Mean Corpuscular HGB Conc 34.6 g/dL (31.8-35.4); Mean Corpuscular Hemoglobin 30.6 pg (27.0-31.2); Mean Corpuscular Volume 88.6 fl (80-94); Mean Platelet Volume 8.2 fl (7.4-10.4); Monocytes # 0.5 K/mm3 (0.1-1.0); Monocytes % 23.3 % (1.7-9.3); Neutrophils # 0.8 K/mm3 (1.8-7.8); Neutrophils % 41.9 % (37.0-80.0); Platelet Count 89 K/mm3 (142-424); Red Blood Count 2.98 M/mm3 (4.60-6.20); Red Cell Distribution Width 13.7 % (11.5-17.5); Total Protein,Serum 6.3 g/dl (6.3-8.2)
[2021-01-04 09:14] LABS: MANUAL DIFFERENTIAL MANUAL DIFFERENTIAL (MANUAL DIFF)
[2021-01-04 09:36] LABS: Lymphocytes % 36 % (10-50); Monocytes % 16 % (2-9); Neutrophils % 48 % (42-76); Total Cells Counted 25
[2021-01-04 09:41] LABS: RBC Morphology Normal
[2021-01-04 09:42] LABS: Platelet Estimate Slight Decrease
[2021-01-04 09:58] VITALS: BP 105/55; PULSE 72; RESP 18; TEMP 36; O2SAT 97
[2021-01-04 10:58] VITALS: BP 118/59; PULSE 75; RESP 18
== END 2021-01-04 10:58 | disposition home or self-care (01) ==
LOC: INF 08:48
PROVIDERS: Visit Provider Internal Medicine Medical Oncology
DX: C34.90 Malignant neoplasm of unspecified part of unspecified bronchus or lung (principal); Z45.2 Encounter for adjustment and management of vascular access device
CPT/HCPCS: 80053; 85007; 85025; 96360; 96375; J1642; J2405

== ENCOUNTER 2021-01-10 10:07 | Outpatient (CLI) | payer MEDICARE, SELFPAY ==
[2021-01-10 10:08] VITALS: BMI 21.1
[2021-01-10 10:28] LABS: Basophils % 0.2 % (0.1-2.0); Eosinophils % 0.3 % (0.1-12.0); Hematocrit 29.1 % (42.0-52.0); Hemoglobin 9.6 g/dL (14.1-18.0); Lymphocytes # 1.1 K/mm3 (0.7-4.5); Lymphocytes % 15.7 % (10-50); Mean Corpuscular HGB Conc 32.9 g/dL (31.8-35.4); Mean Corpuscular Hemoglobin 30.2 pg (27.0-31.2); Mean Corpuscular Volume 91.6 fl (80-94); Mean Platelet Volume 8.7 fl (7.4-10.4); Monocytes # 0.7 K/mm3 (0.1-1.0); Monocytes % 9.3 % (1.7-9.3); Neutrophils # 5.3 K/mm3 (1.8-7.8); Neutrophils % 74.5 % (37.0-80.0); Platelet Count 308 K/mm3 (142-424); Red Blood Count 3.18 M/mm3 (4.60-6.20); Red Cell Distribution Width 13.7 % (11.5-17.5); White Blood Count 7.2 K/mm3 (4.8-10.8)
[2021-01-10 10:32] LABS: Chloride 99 mmol/L (98-107); Potassium 3.7 mmoL/L (3.5-5.1); Sodium 135 mmol/L (136-145)
[2021-01-10 10:34] LABS: Blood Urea Nitrogen 19 mg/dl (9-20); Creatinine Clearance Estimated 44 mL/min (50-200); Estimated Glomerular Filt Rate 59 ml/min (>60); GFR (African American) 71 ML/MIN (>60)
[2021-01-10 10:35] LABS: Alanine Aminotransferase 30 U/L (12-78); Albumin Level 3.8 g/dl (3.5-5.0); Albumin/Globulin Ratio 1.4 (1.1-1.8); Alkaline Phosphatase 139 U/L (38-126); Anion Gap 10.7 mEq/L (5-15); Aspartate Amino Transferase 26 U/L (17-59); Bilirubin,Total 0.4 mg/dl (0.2-1.3); Calcium 8.9 mg/dl (8.4-10.2); Carbon Dioxide 29 mmol/L (22.0-30.0); Globulin 2.7 g/dL (1.3-3.2); Glucose 126 mg/dl (74-100); Total Protein,Serum 6.5 g/dl (6.3-8.2)
[2021-01-10 11:31] VITALS: BP 123/71; PULSE 73; RESP 18; TEMP 36.4; O2SAT 98
[2021-01-10 12:01] VITALS: BP 121/78; PULSE 76; RESP 18; O2SAT 98
[2021-01-10 12:40] VITALS: BP 120/74; PULSE 71; RESP 18; O2SAT 97
== END 2021-01-10 12:40 | disposition home or self-care (01) ==
LOC: INF 10:07
PROVIDERS: Visit Provider Internal Medicine Medical Oncology
DX: C34.90 Malignant neoplasm of unspecified part of unspecified bronchus or lung (principal)
CPT/HCPCS: 80053; 85025; 96360; 96375; J1642

== ENCOUNTER 2021-01-17 09:15 | Outpatient (CLI) | payer MEDICARE, SELFPAY ==
[2021-01-17 09:19] VITALS: BMI 20.9
[2021-01-17 09:35] LABS: Basophils % 0.2 % (0.1-2.0); Eosinophils % 0.3 % (0.1-12.0); Hematocrit 29.7 % (42.0-52.0); Hemoglobin 9.8 g/dL (14.1-18.0); Lymphocytes # 1.3 K/mm3 (0.7-4.5); Lymphocytes % 20.5 % (10-50); Mean Corpuscular HGB Conc 32.9 g/dL (31.8-35.4); Mean Corpuscular Hemoglobin 29.8 pg (27.0-31.2); Mean Corpuscular Volume 90.7 fl (80-94); Mean Platelet Volume 8.5 fl (7.4-10.4); Monocytes # 0.6 K/mm3 (0.1-1.0); Monocytes % 9.6 % (1.7-9.3); Neutrophils # 4.5 K/mm3 (1.8-7.8); Neutrophils % 69.3 % (37.0-80.0); Platelet Count 329 K/mm3 (142-424); Red Blood Count 3.28 M/mm3 (4.60-6.20); Red Cell Distribution Width 14.4 % (11.5-17.5); White Blood Count 6.5 K/mm3 (4.8-10.8)
[2021-01-17 09:36] LABS: Chloride 102 mmol/L (98-107); Potassium 4.1 mmoL/L (3.5-5.1); Sodium 137 mmol/L (136-145)
[2021-01-17 09:39] LABS: Alanine Aminotransferase 25 U/L (12-78); Albumin/Globulin Ratio 1.5 (1.1-1.8); Alkaline Phosphatase 138 U/L (38-126); Anion Gap 12.1 mEq/L (5-15); Aspartate Amino Transferase 26 U/L (17-59); Bilirubin,Total 0.3 mg/dl (0.2-1.3); Blood Urea Nitrogen 26 mg/dl (9-20); Calcium 9.1 mg/dl (8.4-10.2); Carbon Dioxide 27 mmol/L (22.0-30.0); Creatinine Clearance Estimated 40 mL/min (50-200); Estimated Glomerular Filt Rate 54 ml/min (>60); GFR (African American) 65 ML/MIN (>60); Globulin 2.7 g/dL (1.3-3.2); Glucose 126 mg/dl (74-100); Total Protein,Serum 6.7 g/dl (6.3-8.2)
[2021-01-17 11:10] VITALS: BP 118/72; PULSE 64; RESP 18; TEMP 35.7; O2SAT 99
[2021-01-17 11:25] VITALS: BP 121/74; PULSE 60; RESP 18
[2021-01-17 11:40] VITALS: BP 131/70; PULSE 57; RESP 18
[2021-01-17 11:55] VITALS: BP 122/69; PULSE 59; RESP 18
[2021-01-17 12:10] VITALS: BP 124/72; PULSE 60; RESP 18
[2021-01-17 12:25] VITALS: BP 131/73; PULSE 61; RESP 18
== END 2021-01-17 12:25 | disposition home or self-care (01) ==
LOC: INF 09:18
PROVIDERS: Visit Provider Internal Medicine Medical Oncology
DX: Z51.11 Encounter for antineoplastic chemotherapy (principal); C34.90 Malignant neoplasm of unspecified part of unspecified bronchus or lung
CPT/HCPCS: 80053; 85025; 96413; J1642; J2405; J8501; J9223

== ENCOUNTER 2021-01-24 09:11 | Outpatient (CLI) | payer MEDICARE, SELFPAY ==
[2021-01-24 09:12] VITALS: BMI 20.6
[2021-01-24 09:30] LABS: Basophils % 0.2 % (0.1-2.0); Eosinophils # 0.1 K/mm3 (0.0-0.4); Eosinophils % 0.9 % (0.1-12.0); Hemoglobin 9.9 g/dL (14.1-18.0); Lymphocytes # 1.1 K/mm3 (0.7-4.5); Lymphocytes % 15.2 % (10-50); Mean Corpuscular HGB Conc 33.9 g/dL (31.8-35.4); Mean Corpuscular Hemoglobin 30.5 pg (27.0-31.2); Mean Corpuscular Volume 90.1 fl (80-94); Mean Platelet Volume 8.1 fl (7.4-10.4); Monocytes # 0.2 K/mm3 (0.1-1.0); Monocytes % 2.8 % (1.7-9.3); Neutrophils # 6.1 K/mm3 (1.8-7.8); Platelet Count 198 K/mm3 (142-424); Red Blood Count 3.23 M/mm3 (4.60-6.20); Red Cell Distribution Width 14.3 % (11.5-17.5); White Blood Count 7.5 K/mm3 (4.8-10.8)
[2021-01-24 09:33] LABS: Chloride 102 mmol/L (98-107); Potassium 4.1 mmoL/L (3.5-5.1); Sodium 136 mmol/L (136-145)
[2021-01-24 09:36] LABS: Alanine Aminotransferase 57 U/L (12-78); Albumin/Globulin Ratio 1.7 (1.1-1.8); Alkaline Phosphatase 133 U/L (38-126); Anion Gap 12.1 mEq/L (5-15); Aspartate Amino Transferase 32 U/L (17-59); Bilirubin,Total 0.6 mg/dl (0.2-1.3); Blood Urea Nitrogen 29 mg/dl (9-20); Carbon Dioxide 26 mmol/L (22.0-30.0); Creatinine Clearance Estimated 40 mL/min (50-200); Estimated Glomerular Filt Rate 54 ml/min (>60); GFR (African American) 65 ML/MIN (>60); Globulin 2.4 g/dL (1.3-3.2); Total Protein,Serum 6.4 g/dl (6.3-8.2)
[2021-01-24 09:37] LABS: Calcium 8.9 mg/dl (8.4-10.2); Glucose 115 mg/dl (74-100)
== END 2021-01-24 10:25 | disposition home or self-care (01) ==
LOC: INF 09:11
PROVIDERS: Visit Provider Internal Medicine Medical Oncology
DX: C34.90 Malignant neoplasm of unspecified part of unspecified bronchus or lung (principal); Z45.2 Encounter for adjustment and management of vascular access device
CPT/HCPCS: 80053; 85025; J1642

== ENCOUNTER 2021-02-07 08:33 | Outpatient (CLI) | payer MEDICARE, SELFPAY ==
[2021-02-07 08:35] VITALS: BMI 20.7
[2021-02-07 08:47] LABS: Basophils % 0.2 % (0.1-2.0); Eosinophils # 0.1 K/mm3 (0.0-0.4); Eosinophils % 1.9 % (0.1-12.0); Hematocrit 28.9 % (42.0-52.0); Hemoglobin 9.8 g/dL (14.1-18.0); Lymphocytes # 1.2 K/mm3 (0.7-4.5); Lymphocytes % 26.1 % (10-50); Mean Corpuscular HGB Conc 33.7 g/dL (31.8-35.4); Mean Corpuscular Hemoglobin 30.1 pg (27.0-31.2); Mean Corpuscular Volume 89.3 fl (80-94); Mean Platelet Volume 9.5 fl (7.4-10.4); Monocytes # 0.5 K/mm3 (0.1-1.0); Monocytes % 10.7 % (1.7-9.3); Neutrophils # 2.9 K/mm3 (1.8-7.8); Neutrophils % 61.2 % (37.0-80.0); Platelet Count 207 K/mm3 (142-424); Red Blood Count 3.24 M/mm3 (4.60-6.20); Red Cell Distribution Width 14.7 % (11.5-17.5); White Blood Count 4.8 K/mm3 (4.8-10.8)
[2021-02-07 08:53] LABS: Chloride 100 mmol/L (98-107); Potassium 3.6 mmoL/L (3.5-5.1); Sodium 136 mmol/L (136-145)
[2021-02-07 08:56] LABS: Alanine Aminotransferase 21 U/L (12-78); Albumin/Globulin Ratio 1.5 (1.1-1.8); Alkaline Phosphatase 134 U/L (38-126); Anion Gap 11.6 mEq/L (5-15); Aspartate Amino Transferase 27 U/L (17-59); Bilirubin,Total 0.4 mg/dl (0.2-1.3); Blood Urea Nitrogen 16 mg/dl (9-20); Calcium 8.8 mg/dl (8.4-10.2); Carbon Dioxide 28 mmol/L (22.0-30.0); Creatinine Clearance Estimated 48 mL/min (50-200); Estimated Glomerular Filt Rate 65 ml/min (>60); GFR (African American) 79 ML/MIN (>60); Globulin 2.6 g/dL (1.3-3.2); Glucose 115 mg/dl (74-100); Total Protein,Serum 6.6 g/dl (6.3-8.2)
[2021-02-07 10:50] VITALS: BP 150/83; PULSE 64; RESP 18; TEMP 36.2
[2021-02-07 11:05] VITALS: BP 136/82; PULSE 61; RESP 18
[2021-02-07 11:20] VITALS: BP 144/79; PULSE 60; RESP 18
[2021-02-07 11:35] VITALS: BP 152/81; PULSE 65; RESP 16
[2021-02-07 11:50] VITALS: BP 144/73; PULSE 63; RESP 16
[2021-02-07 12:00] VITALS: BP 140/79; PULSE 61; RESP 16
== END 2021-02-07 12:10 | disposition home or self-care (01) ==
LOC: INF 08:33
PROVIDERS: Visit Provider Internal Medicine Medical Oncology
DX: Z51.11 Encounter for antineoplastic chemotherapy (principal); C34.90 Malignant neoplasm of unspecified part of unspecified bronchus or lung
CPT/HCPCS: 80053; 85025; 96413; J1642; J2469; J9223

== ENCOUNTER 2021-02-27 08:46 | Outpatient (CLI) | payer MEDICARE, SELFPAY ==
[2021-02-18 08:31] VITALS: BMI 20.8
[2021-02-18 08:49] LABS: Basophils % 0.4 % (0.1-2.0); Hematocrit 28.2 % (42.0-52.0); Hemoglobin 9.5 g/dL (14.1-18.0); Lymphocytes % 26.1 % (10-50); Mean Corpuscular HGB Conc 33.8 g/dL (31.8-35.4); Mean Corpuscular Hemoglobin 30.2 pg (27.0-31.2); Mean Corpuscular Volume 89.3 fl (80-94); Mean Platelet Volume 9.8 fl (7.4-10.4); Monocytes # 0.3 K/mm3 (0.1-1.0); Neutrophils # 2.4 K/mm3 (1.8-7.8); Neutrophils % 63.5 % (37.0-80.0); Platelet Count 159 K/mm3 (142-424); Red Blood Count 3.16 M/mm3 (4.60-6.20); White Blood Count 3.8 K/mm3 (4.8-10.8)
[2021-02-18 08:53] LABS: Chloride 102 mmol/L (98-107); Potassium 3.8 mmoL/L (3.5-5.1); Sodium 136 mmol/L (136-145)
[2021-02-18 08:56] LABS: Alanine Aminotransferase 23 U/L (12-78); Albumin/Globulin Ratio 1.4 (1.1-1.8); Alkaline Phosphatase 127 U/L (38-126); Anion Gap 11.8 mEq/L (5-15); Aspartate Amino Transferase 22 U/L (17-59); Bilirubin,Total 0.6 mg/dl (0.2-1.3); Blood Urea Nitrogen 29 mg/dl (9-20); Carbon Dioxide 26 mmol/L (22.0-30.0); Creatinine Clearance Estimated 45 mL/min (50-200); Estimated Glomerular Filt Rate 59 ml/min (>60); GFR (African American) 71 ML/MIN (>60); Globulin 2.8 g/dL (1.3-3.2); Total Protein,Serum 6.8 g/dl (6.3-8.2)
[2021-02-18 08:57] LABS: Calcium 8.6 mg/dl (8.4-10.2); Glucose 115 mg/dl (74-100)
[2021-02-27 08:27] VITALS: BMI 21.4
[2021-02-27 08:51] LABS: Basophils % 0.5 % (0.1-2.0); Eosinophils # 0.1 K/mm3 (0.0-0.4); Eosinophils % 1.1 % (0.1-12.0); Hematocrit 29.4 % (42.0-52.0); Lymphocytes # 1.5 K/mm3 (0.7-4.5); Mean Corpuscular HGB Conc 33.8 g/dL (31.8-35.4); Mean Corpuscular Hemoglobin 30.7 pg (27.0-31.2); Mean Corpuscular Volume 90.9 fl (80-94); Mean Platelet Volume 8.2 fl (7.4-10.4); Monocytes # 0.7 K/mm3 (0.1-1.0); Neutrophils # 2.7 K/mm3 (1.8-7.8); Neutrophils % 54.5 % (37.0-80.0); Platelet Count 240 K/mm3 (142-424); Red Blood Count 3.24 M/mm3 (4.60-6.20)
[2021-02-27 08:58] LABS: Chloride 99 mmol/L (98-107); Potassium 3.8 mmoL/L (3.5-5.1); Sodium 137 mmol/L (136-145)
--- NOTE | 2021-02-27 08:59 | CT_ITS ---
PROCEDURE INFORMATION: Exam: CT Abdomen And Pelvis With Contrast Exam date and time: 02/27/2021 8:59 AM Age: 75 years old Clinical indication: Condition or disease; Cancer; Other: Lung; Additional info: Lung CA TECHNIQUE: Imaging protocol: Computed tomography of the abdomen and pelvis with contrast. Radiation optimization: All CT scans at this facility use at least one of these dose optimization techniques: automated exposure control; mA and/or kV adjustment per patient size (includes targeted exams where dose is matched to clinical indication); or iterative reconstruction. Contrast material: ISOVUE; Contrast volume: 75 ml; Contrast route: IV; COMPARISON: CT ABDOMEN PELVIS WO/W CON 11/27/2020 9:32 AM FINDINGS: Liver: Normal. No mass. Gallbladder and bile ducts: There has been a cholecystectomy. Pancreas: Normal. No ductal dilation. Spleen: The spleen demonstrates punctate calcifications, consistent with remote granulomatous organism exposure. Adrenal glands: Normal. No mass. Kidneys and ureters: 1 cm left renal cyst is present. 7 mm soft tissue density is again noted lateral to the right kidney and a similar to the prior study. Stomach and bowel: A large amount of stool is noted throughout the colon. Appendix: No evidence of appendicitis. Intraperitoneal space: Normal. No significant fluid collection. Vasculature: The vasculature demonstrates diffuse mild atherosclerotic calcification. Lymph nodes: No mesenteric or retroperitoneal lymphadenopathy. Urinary bladder: Unremarkable as visualized. Reproductive: The prostate demonstrates mild nonspecific enlargement. The seminal vesicles are normal. Bones/joints: No osteoblastic or osteolytic lesions. Grade 1 spondylolisthesis of L5 on S1. The lumbar spine demonstrates mild degenerative changes at multiple levels. Soft tissues: Right inguinal hernia with fat and bowel present. Other findings: There is diffuse thinning of the articular cartilage. IMPRESSION: 1. 7 mm soft tissue density is again noted lateral to the right kidney and a similar to the prior study. Etiology is undetermined, however metastatic changes are not excluded. This is unchanged when compared to the prior study. 2. A large amount of stool is noted throughout the colon. 3. Right inguinal hernia with fat and bowel present. 4. No mesenteric or retroperitoneal lymphadenopathy. 5. No osteoblastic or osteolytic lesions. 6. Grade 1 spondylolisthesis of L5 on S1. COMMENTS: Consistent with the [employer]'s Incidental Findings Committee white paper (J Am Stuart Radiol 2018): Any incidental renal lesion less than 1 cm or classified as too small to characterize, or any incidental cystic renal lesion characterized as simple-appearing, is likely benign. No follow-up imaging is recommended for these lesions per consensus recommendations based on imaging criteria.
--- NOTE | 2021-02-27 08:59 | CT_ITS ---
PROCEDURE: CT CHEST W CON CLINCAL INDICATION: LUNG CA COMPARISON: CT CT CHEST WO/W CON from 11/27/2020 TECHNIQUE: IV Contrast: 75ml Isovue 370 Axial images obtained with sagittal and coronal reformats. All CT scans at the facility use one or more dose reduction, viz: automated exposure control, ma/kV adjustment per patient size (including targeted exams where dose is matched to indication, i.e. head), or iterative reconstruction technique. FINDINGS: HEART AND MEDIASTINAL STRUCTURES: There has been slight interval increase in size of the subcarinal and precarinal lymphadenopathy since the previous exam. The combined precarinal subcarinal adenopathy now measures 5.6 cm anterior posterior dimension on the axial sequence where as previous study showed it to measure 4.6 cm. Left-sided cardiac pacemaker again noted. LUNGS AND PLEURAL SPACES: Mild emphysematous changes again noted. The subpleural suspicious nodule superior segment right lower lobe is basically unchanged in size and appearance from previous exam. There is no acute infiltrate seen in either lung. No other suspicious pulmonary nodules, I do not definitely see the small 4 mm nodule left upper lobe described on the previous exam. 12 There is no pleural fluid. BONY STRUCTURES: There is no evidence of lytic or blastic disease involving the bony thorax. UPPER ABDOMEN: Unremarkable. ADDITIONAL FINDINGS: No other significant abnormalities. IMPRESSION: Slight interval increase in size of the combined precarinal subcarinal lymphadenopathy compared to the previous exam, basically stable slightly spiculated subpleural mass superior segment right lower lobe, no evidence of bony metastatic disease Dictated by: Dr. Evaristo Odell MD 02/27/2021 10:30 Dr. Evaristo Odell MD in [facility] 02/27/2021 10:30
[2021-02-27 09:00] LABS: Blood Urea Nitrogen 14 mg/dl (9-20); Creatinine Clearance Estimated 49 mL/min (50-200); Estimated Glomerular Filt Rate 65 ml/min (>60); GFR (African American) 79 ML/MIN (>60)
[2021-02-27 09:01] LABS: Alanine Aminotransferase 19 U/L (12-78); Albumin Level 4.1 g/dl (3.5-5.0); Albumin/Globulin Ratio 1.5 (1.1-1.8); Alkaline Phosphatase 136 U/L (38-126); Anion Gap 13.8 mEq/L (5-15); Aspartate Amino Transferase 25 U/L (17-59); Bilirubin,Total 0.5 mg/dl (0.2-1.3); Carbon Dioxide 28 mmol/L (22.0-30.0); Globulin 2.7 g/dL (1.3-3.2); Glucose 123 mg/dl (74-100); Total Protein,Serum 6.8 g/dl (6.3-8.2)
== END 2021-02-27 10:03 | disposition home or self-care (01) ==
LOC: RAD 08:46
PROVIDERS: PCP Internal Medicine Adolescent Medicine; Visit Provider Internal Medicine Medical Oncology
DX: C34.90 Malignant neoplasm of unspecified part of unspecified bronchus or lung (principal); Z03.89 Encounter for observation for other suspected diseases and conditions ruled out
CPT/HCPCS: 71260; 74177; 80053; 85025; J1642; Q9967

== ENCOUNTER 2021-02-28 09:23 | Outpatient (CLI) | payer MEDICARE, SELFPAY ==
[2021-02-28 09:39] VITALS: BP 156/82; PULSE 76; RESP 18; TEMP 36.3; O2SAT 97
[2021-02-28 10:07] VITALS: BP 148/82; PULSE 71; RESP 18; O2SAT 98
[2021-02-28 10:37] VITALS: BP 142/80; PULSE 71; RESP 18; O2SAT 97
[2021-02-28 11:07] VITALS: BP 151/83; PULSE 74; RESP 18; O2SAT 97
[2021-02-28 11:35] VITALS: BP 145/86; PULSE 65; RESP 18; O2SAT 97
== END 2021-02-28 11:35 | disposition home or self-care (01) ==
LOC: INF 09:23
PROVIDERS: Visit Provider Internal Medicine Medical Oncology
DX: Z51.11 Encounter for antineoplastic chemotherapy (principal); C34.90 Malignant neoplasm of unspecified part of unspecified bronchus or lung
CPT/HCPCS: 96413; J1642; J2469; J9223

== ENCOUNTER 2021-03-21 08:06 | Outpatient (CLI) | payer MEDICARE, SELFPAY ==
[2021-03-21 08:09] VITALS: BMI 21.6
[2021-03-21 08:24] LABS: Basophils % 0.5 % (0.1-2.0); Eosinophils # 0.1 K/mm3 (0.0-0.4); Eosinophils % 1.3 % (0.1-12.0); Hematocrit 28.7 % (42.0-52.0); Hemoglobin 9.2 g/dL (14.1-18.0); Lymphocytes # 1.3 K/mm3 (0.7-4.5); Lymphocytes % 29.9 % (10-50); Mean Corpuscular Hemoglobin 29.5 pg (27.0-31.2); Mean Corpuscular Volume 92.2 fl (80-94); Mean Platelet Volume 8.8 fl (7.4-10.4); Monocytes # 0.6 K/mm3 (0.1-1.0); Monocytes % 14.1 % (1.7-9.3); Neutrophils # 2.3 K/mm3 (1.8-7.8); Neutrophils % 54.2 % (37.0-80.0); Platelet Count 223 K/mm3 (142-424); Red Blood Count 3.11 M/mm3 (4.60-6.20); Red Cell Distribution Width 14.9 % (11.5-17.5); White Blood Count 4.2 K/mm3 (4.8-10.8)
[2021-03-21 08:29] LABS: Chloride 102 mmol/L (98-107); Potassium 3.7 mmoL/L (3.5-5.1); Sodium 139 mmol/L (136-145)
[2021-03-21 08:32] LABS: Alanine Aminotransferase 16 U/L (12-78); Albumin/Globulin Ratio 1.4 (1.1-1.8); Alkaline Phosphatase 120 U/L (38-126); Anion Gap 12.7 mEq/L (5-15); Aspartate Amino Transferase 26 U/L (17-59); Bilirubin,Total 0.7 mg/dl (0.2-1.3); Blood Urea Nitrogen 17 mg/dl (9-20); Carbon Dioxide 28 mmol/L (22.0-30.0); Creatinine Clearance Estimated 42 mL/min (50-200); Estimated Glomerular Filt Rate 54 ml/min (>60); GFR (African American) 65 ML/MIN (>60); Globulin 2.8 g/dL (1.3-3.2); Total Protein,Serum 6.8 g/dl (6.3-8.2)
[2021-03-21 08:33] LABS: Calcium 8.9 mg/dl (8.4-10.2); Glucose 109 mg/dl (74-100)
[2021-03-21 10:13] VITALS: BP 145/85; PULSE 74; RESP 18; O2SAT 98
[2021-03-21 10:30] VITALS: BP 130/86; PULSE 68; RESP 18
[2021-03-21 10:45] VITALS: BP 125/89; PULSE 71; RESP 18
[2021-03-21 11:15] VITALS: BP 148/98; PULSE 75; RESP 18
[2021-03-21 11:30] VITALS: BP 147/93; PULSE 72; RESP 18
== END 2021-03-21 11:32 | disposition home or self-care (01) ==
LOC: INF 08:06
PROVIDERS: Visit Provider Internal Medicine Medical Oncology
DX: Z51.11 Encounter for antineoplastic chemotherapy (principal); C34.91 Malignant neoplasm of unspecified part of right bronchus or lung
CPT/HCPCS: 80053; 85025; 96413; J1642; J2469; J9223

== ENCOUNTER 2021-04-05 09:40 | Outpatient (CLI) | payer MEDICARE, SELFPAY ==
[2021-04-05 09:51] VITALS: BMI 21.1
[2021-04-05 10:12] LABS: Basophils % 0.4 % (0.1-2.0); Eosinophils # 0.1 K/mm3 (0.0-0.4); Eosinophils % 2.2 % (0.1-12.0); Hematocrit 28.3 % (42.0-52.0); Hemoglobin 9.3 g/dL (14.1-18.0); Lymphocytes # 1.1 K/mm3 (0.7-4.5); Lymphocytes % 34.4 % (10-50); Mean Corpuscular Hemoglobin 29.5 pg (27.0-31.2); Mean Corpuscular Volume 89.4 fl (80-94); Mean Platelet Volume 9.2 fl (7.4-10.4); Monocytes # 0.4 K/mm3 (0.1-1.0); Monocytes % 13.2 % (1.7-9.3); Neutrophils # 1.5 K/mm3 (1.8-7.8); Neutrophils % 49.8 % (37.0-80.0); Platelet Count 172 K/mm3 (142-424); Red Blood Count 3.16 M/mm3 (4.60-6.20); Red Cell Distribution Width 15.3 % (11.5-17.5)
[2021-04-05 10:17] LABS: Chloride 95 mmol/L (98-107); Sodium 131 mmol/L (136-145)
[2021-04-05 10:20] LABS: Alanine Aminotransferase 25 U/L (12-78); Albumin Level 3.9 g/dl (3.5-5.0); Albumin/Globulin Ratio 1.5 (1.1-1.8); Alkaline Phosphatase 119 U/L (38-126); Aspartate Amino Transferase 29 U/L (17-59); Bilirubin,Total 0.5 mg/dl (0.2-1.3); Blood Urea Nitrogen 22 mg/dl (9-20); Calcium 8.8 mg/dl (8.4-10.2); Carbon Dioxide 26 mmol/L (22.0-30.0); Creatinine Clearance Estimated 41 mL/min (50-200); Estimated Glomerular Filt Rate 54 ml/min (>60); GFR (African American) 65 ML/MIN (>60); Globulin 2.6 g/dL (1.3-3.2); Glucose 114 mg/dl (74-100); Total Protein,Serum 6.5 g/dl (6.3-8.2)
[2021-04-05 11:00] VITALS: BP 137/79; PULSE 71; RESP 20; TEMP 35.9; O2SAT 97
[2021-04-05 12:00] VITALS: BP 148/77; PULSE 66; RESP 18
== END 2021-04-05 12:05 | disposition home or self-care (01) ==
LOC: INF 09:49
PROVIDERS: Visit Provider Internal Medicine Medical Oncology
DX: C34.90 Malignant neoplasm of unspecified part of unspecified bronchus or lung (principal)
CPT/HCPCS: 80053; 85025; 96360; 96375; J1642

== ENCOUNTER 2021-04-08 09:01 | Outpatient (CLI) | payer MEDICARE, SELFPAY ==
[2021-04-08 09:15] VITALS: BP 129/72; PULSE 71; RESP 18; TEMP 36.6; O2SAT 98
[2021-04-08 09:45] VITALS: BP 135/78; PULSE 78; RESP 18; O2SAT 98
[2021-04-08 10:15] VITALS: BP 150/82; PULSE 68; RESP 18; O2SAT 98
== END 2021-04-08 10:15 | disposition home or self-care (01) ==
LOC: INF 09:01
PROVIDERS: PCP Internal Medicine Adolescent Medicine; Visit Provider Internal Medicine Medical Oncology
DX: C34.90 Malignant neoplasm of unspecified part of unspecified bronchus or lung (principal)
CPT/HCPCS: 96360; J1642

== ENCOUNTER 2021-04-11 08:27 | Outpatient (CLI) | payer MEDICARE, SELFPAY ==
[2021-04-11 08:30] VITALS: BMI 21.1
[2021-04-11 08:47] LABS: Basophils % 0.6 % (0.1-2.0); Eosinophils # 0.1 K/mm3 (0.0-0.4); Eosinophils % 1.3 % (0.1-12.0); Hematocrit 28.9 % (42.0-52.0); Hemoglobin 9.9 g/dL (14.1-18.0); Lymphocytes # 1.5 K/mm3 (0.7-4.5); Lymphocytes % 28.6 % (10-50); Mean Corpuscular HGB Conc 34.1 g/dL (31.8-35.4); Mean Corpuscular Hemoglobin 30.1 pg (27.0-31.2); Mean Corpuscular Volume 88.3 fl (80-94); Mean Platelet Volume 8.8 fl (7.4-10.4); Monocytes # 0.6 K/mm3 (0.1-1.0); Monocytes % 12.7 % (1.7-9.3); Neutrophils # 2.9 K/mm3 (1.8-7.8); Neutrophils % 56.8 % (37.0-80.0); Platelet Count 283 K/mm3 (142-424); Red Blood Count 3.28 M/mm3 (4.60-6.20); Red Cell Distribution Width 15.2 % (11.5-17.5); White Blood Count 5.1 K/mm3 (4.8-10.8)
[2021-04-11 08:55] LABS: Chloride 91 mmol/L (98-107)
[2021-04-11 08:56] LABS: Potassium 4.1 mmoL/L (3.5-5.1); Sodium 125 mmol/L (136-145)
[2021-04-11 08:58] LABS: Alanine Aminotransferase 26 U/L (12-78); Aspartate Amino Transferase 32 U/L (17-59); Blood Urea Nitrogen 17 mg/dl (9-20); Creatinine Clearance Estimated 41 mL/min (50-200); Estimated Glomerular Filt Rate 54 ml/min (>60); GFR (African American) 65 ML/MIN (>60)
[2021-04-11 08:59] LABS: Albumin Level 4.1 g/dl (3.5-5.0); Albumin/Globulin Ratio 1.5 (1.1-1.8); Alkaline Phosphatase 142 U/L (38-126); Anion Gap 13.1 mEq/L (5-15); Bilirubin,Total 0.8 mg/dl (0.2-1.3); Calcium 8.7 mg/dl (8.4-10.2); Carbon Dioxide 25 mmol/L (22.0-30.0); Globulin 2.8 g/dL (1.3-3.2); Glucose 105 mg/dl (74-100); Total Protein,Serum 6.9 g/dl (6.3-8.2)
[2021-04-11 09:45] VITALS: BP 113/64; PULSE 69; RESP 18; TEMP 36.6; O2SAT 100
[2021-04-11 10:15] VITALS: BP 118/68; PULSE 67; RESP 18; O2SAT 99
[2021-04-11 10:50] VITALS: BP 136/74; PULSE 65; RESP 18; O2SAT 99
== END 2021-04-11 10:50 | disposition home or self-care (01) ==
LOC: INF 08:27
PROVIDERS: Visit Provider Internal Medicine Medical Oncology
DX: C34.90 Malignant neoplasm of unspecified part of unspecified bronchus or lung (principal)
CPT/HCPCS: 80053; 85025; 96360; 96375; J1642

== ENCOUNTER 2021-04-14 04:55 | Inpatient (IN) | payer MEDICARE, SELFPAY ==
[2021-04-14] VITALS (11 sets, daily range): BP systolic 97–146; BP diastolic 63–89; PULSE 52–96; RESP 18–24; TEMP 36.4–37.1; O2SAT 93–99; BMI 20.9; BMI 21.2
--- NOTE | 2021-04-14 05:21 | XR_ITS ---
PROCEDURE INFORMATION: Exam: XR Chest Exam date and time: 04/14/2021 5:21 AM Age: 75 years old Clinical indication: Pain; Chest pressure; Prior surgery; Surgery type: Port; Patient HX: PT has lung cancer and is receiving chemo; Additional info: Chest pain TECHNIQUE: Imaging protocol: XR of the chest. Views: 1 view. COMPARISON: CT CHEST W CON 02/27/2021 9:28 AM FINDINGS: Tubes, catheters and devices: MediPort terminates in the superior vena cava Lungs: Unremarkable. No consolidation. Pleural spaces: Unremarkable. No pleural effusion. No pneumothorax. Heart/Mediastinum: Unremarkable. No cardiomegaly. Bones/joints: Unremarkable. IMPRESSION: No acute process
--- NOTE | 2021-04-14 05:24 | HMH.EDGENADL ---
ED Disposition Clinical Impression: Hyponatremia Disposition: Admitted As Inpatient Condition on Discharge: Good Referrals: Jose Enrique Ha MD [Primary Care Provider] - - Critical Care Critical Care Time: No Attestation: On 04/14/21, the high probability of a clinically significant, sudden or life threatening deterioration of the following system(s) required my full and direct attention, intervention and personal management. The time I documented below is in addition to time spent performing reported procedures but includes the following listed in this critical care notation. Medical Decision Making - Thomas Inquiry Pt receiving controlled substance: No Vital Signs: 04/14/21 04:56 04/14/21 07:16 Temperature 98.7 F Temperature Source Oral Pulse Rate 52 L Pulse Rate [Right] 96 H Respiratory Rate 18 Blood Pressure 97/65 L Blood Pressure [Right Arm] 142/81 H Blood Pressure Mean [Right Arm] 101 02 Sat by Pulse Oximetry 96 93 L - Lab Data Lab Results 04/14/21 05:35: WBC 8.0 D, RBC 3.33 L, Hgb 9.8 L, Hct 28.8 L, MCV 86.5, MCH 29.5, MCHC 34.1, RDW 15.1, Plt Count 301, MPV 7.3 L, Neut % (Auto) 70.9, Lymph % (Auto) 18.8, [place] % (Auto) 8.6, Eos % (Auto) 1.2, Baso % (Auto) 0.5, Neut # (Auto) 5.7, Lymph # (Auto) 1.5, [place] # (Auto) 0.7, Eos # (Auto) 0.1, Baso # (Auto) 0.0 04/14/21 05:35: Sodium 121 L, Potassium 3.8, Chloride 86 L, Carbon Dioxide 24, Anion Gap 14.8, BUN 17, Creatinine 1.00 D, Estimated Creat Clear 52, Estimated GFR 73, Est GFR ( Amer) 88 D, Glucose 113 H, Calcium 8.4, Total Bilirubin 0.5, AST 35, ALT 27, Alkaline Phosphatase 111, Troponin I < 0.01, Total Protein 6.7, Albumin 4.1, Globulin 2.6, Albumin/Globulin Ratio 1.6 Result diagrams: 04/14/21 05:35 04/14/21 05:35 Orders (Tests/Meds): ORDERS Category Date Time Status Rapid PCR Covid and Flu A/B Stat Lab 04/14/21 07:44 Ordered Troponin I Q3H Lab 04/14/21 08:30 Ordered Troponin I Q3H Lab 04/14/21 11:30 Ordered Urinalysis and Microscopic Stat Lab 04/14/21 05:21 Ordered ECG Request by /Kalia Stat Y 04/14/21 05:21 Ordered Medical Decision Narrative: The patient is a 75-year-old male with lung cancer on chemotherapy who presents to the emergency department with chest pain, congestion, dizziness, shakiness, decreased p.o. intake. Differential diagnosis includes ACS, pneumonia, UTI, neutropenic fever, dehydration, MACIE, anemia. Given this plan to obtain CBC, CMP, EKG, troponin, chest x-ray, urinalysis and then reassess. CBC reviewed and not concerning. CMP revealed a natremia to 121. On chart review the patient has been steadily downtrending. His sodium a few weeks ago was 139. He will require admission for hyponatremia. Chest x-ray showed no evidence of infection. Urinalysis and Covid swab pending at the time of admission. I spoke with the hospital medicine team who agreed to admission. The patient will be started on 100 mL/h of normal saline. General Adult HPI - General Stated complaint: SOA;Dizzy Time Seen by Provider: 04/14/21 05:20 Source of Information: Patient Limitations: No Limitations - History of Present Illness HPI narrative: No with lung cancer on chemotherapy who presents to the emergency department with chest pain, congestion, dizziness, shakiness. The patient reports that his last dose of chemotherapy was about 3 weeks ago. He reports that last week he became dehydrated. He was feeling better for a while but has had continued difficulty tolerating p.o. and reports he has not been sleeping due to shakiness and congestion. He states tonight he became very shaky and dizzy so came to the emergency department. He denies fever, abdominal pain, shortness of breath, dysuria, frequency, urgency, cough. He has no known sick contacts. He has not received the COVID vaccine. - Related Data Home Medications Medication Instructions Recorded Confirmed atorvastatin 40 mg tablet 40 mg PO DAILY
--- NOTE | 2021-04-14 06:00 | PC.NURSE ---
Addendum entered by Jose Luis Medina RN 04/14/21 07:31: wrong pt Addendum entered by Jose Luis Medina RN 04/14/21 07:31: wrong pt Original Note: increased levo drip to 30mcg/ min unable to obtain BP. 60/doppler 0610 increased vasopressin drip 0.03 units per minute
[2021-04-14 06:04] LABS: Basophils % 0.5 % (0.1-2.0); Eosinophils # 0.1 K/mm3 (0.0-0.4); Eosinophils % 1.2 % (0.1-12.0); Hematocrit 28.8 % (42.0-52.0); Hemoglobin 9.8 g/dL (14.1-18.0); Lymphocytes # 1.5 K/mm3 (0.7-4.5); Lymphocytes % 18.8 % (10-50); Mean Corpuscular HGB Conc 34.1 g/dL (31.8-35.4); Mean Corpuscular Hemoglobin 29.5 pg (27.0-31.2); Mean Corpuscular Volume 86.5 fl (80-94); Mean Platelet Volume 7.3 fl (7.4-10.4); Monocytes # 0.7 K/mm3 (0.1-1.0); Monocytes % 8.6 % (1.7-9.3); Neutrophils # 5.7 K/mm3 (1.8-7.8); Neutrophils % 70.9 % (37.0-80.0); Platelet Count 301 K/mm3 (142-424); Red Blood Count 3.33 M/mm3 (4.60-6.20); Red Cell Distribution Width 15.1 % (11.5-17.5)
[2021-04-14 06:28] LABS: Alanine Aminotransferase 27 U/L (12-78); Albumin Level 4.1 g/dl (3.5-5.0); Albumin/Globulin Ratio 1.6 (1.1-1.8); Alkaline Phosphatase 111 U/L (38-126); Anion Gap 14.8 mEq/L (5-15); Aspartate Amino Transferase 35 U/L (17-59); Bilirubin,Total 0.5 mg/dl (0.2-1.3); Blood Urea Nitrogen 17 mg/dl (9-20); Calcium 8.4 mg/dl (8.4-10.2); Carbon Dioxide 24 mmol/L (22.0-30.0); Chloride 86 mmol/L (98-107); Creatinine Clearance Estimated 52 mL/min (50-200); Estimated Glomerular Filt Rate 73 ml/min (>60); GFR (African American) 88 ML/MIN (>60); Globulin 2.6 g/dL (1.3-3.2); Glucose 113 mg/dl (74-100); Potassium 3.8 mmoL/L (3.5-5.1); Sodium 121 mmol/L (136-145); Total Protein,Serum 6.7 g/dl (6.3-8.2)
--- NOTE | 2021-04-14 06:37 | PC.NURSE ---
Addendum entered by Jose Luis Medina RN 04/14/21 07:31: wrong pt Original Note: decreased levo to 20mcg per min BP 125/69
--- NOTE | 2021-04-14 06:38 | PC.NURSE ---
Addendum entered by Jose Luis Medina RN 04/14/21 07:32: wrong pt Original Note: daughter arrived and at bedside
[2021-04-14 06:41] LABS: Troponin I < 0.01 ng/ml (0.00-0.034)
--- NOTE | 2021-04-14 07:14 | ECG_ITS ---
APPROVED REPORT Exam: Resting ECG HR:59 bpm ECG Measurements Heart Rate 59 AXES ID 192 P 56 QRSd 100 QRS 20 QT 446 T 34 QTc 441 Conclusion Sinus bradycardia Incomplete right bundle branch block Borderline ECG Electronically signed by : Jose Enrique Ha MD 04/16/2021 21:07:05
[2021-04-14 07:53] LABS: Coronavirus 19, PCR Not Detected (NotDetected); Influenza A, PCR Not Detected (NotDetected); Influenza B, PCR Not Detected (NotDetected)
--- NOTE | 2021-04-14 08:26 | PC.NURSE ---
report called to floor
--- NOTE | 2021-04-14 08:49 | HMH.HP ---
*Admission Date: 04/14/21 *Chief complaint: Weakness *History of present illness: No with lung cancer on chemotherapy who presents to the emergency department with chest pain, congestion, dizziness, shakiness. The patient reports that his last dose of chemotherapy was about 3 weeks ago. He reports that last week he became dehydrated. He was feeling better for a while but has had continued difficulty tolerating p.o. and reports he has not been sleeping due to shakiness and congestion. He states tonight he became very shaky and dizzy so came to the emergency department. He denies fever, abdominal pain, shortness of breath, dysuria, frequency, urgency, cough. He has no known sick contacts. He has not received the COVID vaccine. Above note per ER. ER work-up revealed normal CBC and chest x-ray, Covid swab was unremarkable. However he was revealed to have significant hyponatremia, with worsening sodium levels over the past several weeks. Admitted for normal saline infusion and observation as well as further diagnostic testing. [facility] History Medical History: Reports:: Anxiety, Arrhythmia, Cancer, Chronic Obstructive Pulmonary Disease (COPD), Hyperlipidemia, Hypertension, Lung Disease, Supraventricular Tachycardia Denies:: Diabetes Mellitus Type 1, Diabetes Mellitus Type 2, Internal Pacemaker, MRSA, Seizures *Have you ever received a pneumonia vaccine?: No *Have you received a flu vaccine this season?: No Other Medical History: Reports: Arthritis, Chemotherapy, Other. Denies: Blood Transfusion Reaction Other Surgeries: Yes: Appendectomy, Cholecystectomy, Colonoscopy, Other. No: Pacemaker Amputation: No Fractures: No - *Social History Smoking Status: Former smoker Tobacco Type: cigarettes # Packs/Day (cigarettes): 1 #Yrs smoked (if former smoker): 40 Alcohol Intake: never Substance Use Type: denies use *Occupational Status:: retired Housing: house Household Members: family *Travel in the last 8 weeks: None - Psychiatric History Pschychiatric History:: Reports:: Anxiety Family Hx:: Cancer, Heart Attack, Hypertension Review of Systems - Review of Systems Review of systems:: pertinent systems reviewed and negative unless documented below Patient reports weakness and shakiness. Denies new cardiac or pulmonary symptoms. Mild nausea without vomiting. No diarrhea. Otherwise 10 point review of systems negative Meds Home Medications Medication Instructions Recorded Confirmed Type atorvastatin 40 mg tablet 40 mg PO DAILY 11/03/19 04/14/21 History lisinopril 20 1 tab PO DAILY tab 12/20/20 04/14/21 History mg-hydrochlorothiazide 12.5 mg tablet Allergies Allergy/AdvReac Type Severity Reaction Status Date / Time codeine [CODEINE] Allergy Unknown I-HIVES Verified 04/11/21 08:56 morphine [MORPHINE] Allergy Unknown I-HIVES Verified 04/11/21 08:56 Exam Vital signs and Labs for Last 24 Hours: Temp Pulse Resp BP Pulse Ox 98.7 F 52 L 18 97/65 L 93 L 04/14/21 04:56 04/14/21 07:16 04/14/21 04:56 04/14/21 07:16 04/14/21 07:16 Laboratory Results - last 24 hr 04/14/21 05:35: WBC 8.0 D, RBC 3.33 L, Hgb 9.8 L, Hct 28.8 L, MCV 86.5, MCH 29.5, MCHC 34.1, RDW 15.1, Plt Count 301, MPV 7.3 L, Neut % (Auto) 70.9, Lymph % (Auto) 18.8, [place] % (Auto) 8.6, Eos % (Auto) 1.2, Baso % (Auto) 0.5, Neut # (Auto) 5.7, Lymph # (Auto) 1.5, [place] # (Auto) 0.7, Eos # (Auto) 0.1, Baso # (Auto) 0.0 04/14/21 05:35: Sodium 121 L, Potassium 3.8, Chloride 86 L, Carbon Dioxide 24, Anion Gap 14.8, BUN 17, Creatinine 1.00 D, Estimated Creat Clear 52, Estimated GFR 73, Est GFR ( Amer) 88 D, Glucose 113 H, Calcium 8.4, Total Bilirubin 0.5, AST 35, ALT 27, Alkaline Phosphatase 111, Troponin I < 0.01, Total Protein 6.7, Albumin 4.1, Globulin 2.6, Albumin/Globulin Ratio 1.6 04/14/21 07:47: SARS-CoV-2 (PCR) Not detected, Influenza A Untype (PCR) Not detected, Influenza Type B (PCR) Not detected I & O for Last 24 hours: Intake
--- NOTE | 2021-04-14 08:49 | PC.NURSE ---
pt arrived to the floor at this time.
--- NOTE | 2021-04-14 09:31 | HMH.PHAINT ---
MEDICATION RECONCILIATION COMPLETE USING LIST FROM MD OFFICE VISIT 04/11/21 AND EXTERNAL PHARMACY FILL HISTORY.
--- NOTE | 2021-04-14 09:32 | HMH.PHAVTE ---
[facility] Pharmacy VTE Monitoring - Patient Demographics Admission date: 04/14/21 Report Date: 04/14/21 Time: 09:32 Allergies/Adverse Reactions: Patient Allergies codeine [CODEINE] Allergy (Unknown, Verified 04/11/21 08:56) I-HIVES morphine [MORPHINE] Allergy (Unknown, Verified 04/11/21 08:56) I-HIVES Height: 1.68 m Weight: 59.562 kg Patient Problems: Current Active Problems Dizziness (Acute) Essential hypertension (Acute) Hyponatremia (Acute) Lung cancer (Acute) - VTE Risk Labs: VTE Related Lab Results Hgb 9.8 g/dL (14.1-18.0) L 04/14/21 05:35 Hct 28.8 % (42.0-52.0) L 04/14/21 05:35 Plt Count 301 K/mm3 (142-424) 04/14/21 05:35 BUN 17 mg/dl (9-20) 04/14/21 05:35 Creatinine 1.00 mg/dl (0.66-1.25) D 04/14/21 05:35 Estimated Creat Clear 52 mL/min (50-200) 04/14/21 05:35 Was VTE Risk Assessment Performed: Yes VTE Score: 2 VTE Risk Level: Very Low Risk Clinical Trial Participant: No - Prophylaxis VTE Prophylaxis Ordered?: Yes Types of VTE Prophylaxis: TEDS Knee High Location of Applied Device: Bilateral Lower Extremeties
--- NOTE | 2021-04-14 18:21 | PC.NURSE ---
No acute changes. Remains on room air. Denies being SOA. HR regular. Abdomen soft, non-tender w/ active BS in all quads. Ambulates w/ standby assist to bathroom. Tremor noted, this is pt's baseline. Pt has had a poor appetite this shift, c/o nausea once. Bed safety in place. Call angela w/in reach.
--- NOTE | 2021-04-15 03:31 | PC.NURSE ---
Pt is A/O x4. Pt reported nausea x1 this shift admin meds per MAR with relief. Pt had diarrhea x1 this shift. Pt uses toilet to void and ambulates good with standby assist. Pt remains on room air with stats >90%. pt denies any pain. Tremors noted, this is pt's baseline. VSS, bed alarm on for safety. call light within reach, will continue to monitor.
[2021-04-15 04:00] VITALS: BP 128/83; PULSE 72; RESP 24; TEMP 36.7; O2SAT 90
[2021-04-15 06:46] VITALS: BMI 21.0
[2021-04-15 08:00] VITALS: BP 129/78; PULSE 78; RESP 15; TEMP 36.8; O2SAT 97
--- NOTE | 2021-04-15 08:27 | HMH.ACPN2 ---
Internal Medicine - PN: Subj *Date: 04/15/21 *Time: 08:27 Interval history: Patient sitting up on the side of the bed. Reports that he feels not so good this morning, notes this is from an episode of diarrhea. He does not feel like eating, reports that he did not eat supper last night or breakfast this morning. Has had no vomiting. Notes that breathing is about the same. Labs this morning are pending. Exam Vital signs and Labs for Last 24 Hours: Temp Pulse Resp BP Pulse Ox 98.3 F 78 15 129/78 97 04/15/21 08:00 04/15/21 08:00 04/15/21 08:00 04/15/21 08:00 04/15/21 08:00 I & O for Last 24 hours: Intake & Output 04/12/21 04/13/21 04/14/21 04/15/21 11:59 11:59 11:59 11:59 Intake Total 1827 / 1827 Output Total 300 / 300 Balance 1527 / 1527 Weight 131 lb 5 oz 131 lb 2 oz Narrative: Previously noted essential tremor. Patient is pleasant, alert, oriented x3 with a little fuzziness about the date but this is his baseline. Oropharynx slightly dry but otherwise clear. Lungs have good air movement, slight rhonchi in the expiratory phase in the bases. Heart rate regular. Abdomen soft, no extremity edema or clubbing, skin turgor slightly better. Assessment and Plan (1) Lung cancer Status: Acute Category: Medical Code(s): C34.90 - Malignant neoplasm of unspecified part of unspecified bronchus or lung (2) Hyponatremia Status: Acute Category: Medical Code(s): E87.1 - Hypo-osmolality and hyponatremia (3) Dizziness Status: Acute Category: Medical Code(s): R42 - Dizziness and giddiness (4) Essential hypertension Status: Acute Category: Medical Code(s): I10 - Essential (primary) hypertension (5) Nutritional deficiency Status: Acute Category: Medical Code(s): E63.9 - Nutritional deficiency, unspecified - Assessment and plan all Dx Assessment and Plan for all problems:: Follow labs for hyponatremia issues. Check C. difficile titers given his diarrhea that has been present since admission. Continue low-dose IV fluids. Nutrition consult for improving protein and calorie intake.
[2021-04-15 08:50] LABS: Basophils % 0.3 % (0.1-2.0); Eosinophils # 0.1 K/mm3 (0.0-0.4); Eosinophils % 0.7 % (0.1-12.0); Hematocrit 30.5 % (42.0-52.0); Hemoglobin 10.6 g/dL (14.1-18.0); Lymphocytes # 1.4 K/mm3 (0.7-4.5); Lymphocytes % 12.8 % (10-50); Mean Corpuscular HGB Conc 34.8 g/dL (31.8-35.4); Mean Corpuscular Hemoglobin 30.1 pg (27.0-31.2); Mean Corpuscular Volume 86.3 fl (80-94); Mean Platelet Volume 7.7 fl (7.4-10.4); Monocytes # 0.7 K/mm3 (0.1-1.0); Monocytes % 6.1 % (1.7-9.3); Neutrophils # 8.7 K/mm3 (1.8-7.8); Neutrophils % 80.2 % (37.0-80.0); Platelet Count 303 K/mm3 (142-424); Red Blood Count 3.53 M/mm3 (4.60-6.20); Red Cell Distribution Width 15.1 % (11.5-17.5); White Blood Count 10.9 K/mm3 (4.8-10.8)
[2021-04-15 09:00] LABS: Anion Gap 12.3 mEq/L (5-15); Blood Urea Nitrogen 16 mg/dl (9-20); Calcium 8.1 mg/dl (8.4-10.2); Carbon Dioxide 20 mmol/L (22.0-30.0); Chloride 93 mmol/L (98-107); Creatinine Clearance Estimated 48 mL/min (50-200); Estimated Glomerular Filt Rate 65 ml/min (>60); GFR (African American) 79 ML/MIN (>60); Glucose 77 mg/dl (74-100); Potassium 4.3 mmoL/L (3.5-5.1); Sodium 121 mmol/L (136-145)
[2021-04-15 09:49] LABS: Adenovirus F 40/41, stool Not Detected (NotDetected); Astrovirus Not Detected (NotDetected); Campylobacter Not Detected (NotDetected); Clostridium Difficile A/B, PCR Not Detected (NotDetected); Cryptosporidium Not Detected (NotDetected); Cyclospora Cayetanesis Not Detected (NotDetected); Entamoeba histolytica Not Detected (NotDetected); Enteroaggregative E coli Not Detected (NotDetected); Enteropathogenic E coli Not Detected (NotDetected); Enterotoxigenic E coli Not Detected (NotDetected); Giardia lamblia Not Detected (NotDetected); Norovirus Not Detected (NotDetected); Plesimonas Shigalloides, PCR Not Detected (NotDetected); Rotavirus A Not Detected (NotDetected); Salmonella, PCR Not Detected (NotDetected); Sapovirus Not Detected (NotDetected); Shiga-like toxin E coli Not Detected (NotDetected); Shigella Enterovasive E coli Not Detected (NotDetected); Vibrio Cholerae Not Detected (NotDetected); Vibrio, PCR Not Detected (NotDetected); Yersinia Entercolitica, PCR Not Detected (NotDetected)
[2021-04-15 11:25] LABS: Microscopic, Urine URINE MICROSCOPIC (MICROSCOPIC)
[2021-04-15 11:27] LABS: Appearance,Urine CLEAR (Clear); Bilirubin,Urine Negative (Negative); Blood, Urine 2+ (Negative); Color,Urine YELLOW (Yellow); Glucose,Urine (UA) Negative (Negative); Ketones,Urine Negative (Negative); Leukocyte Esterase,Urine Negative (Negative); Nitrate,Urine Negative (Negative); Protein,Urine Negative (Negative); Urobilinogen,Urine 0.2 EU/dl (0.2)
[2021-04-15 11:44] LABS: Squamous Epithelial Cell,Urine Occasional #/hpf (0-5); WBC,Urine Occasional #/hpf (0-3)
[2021-04-15 13:06] VITALS: BMI 20.9
[2021-04-15 16:00] VITALS: BP 121/88; PULSE 77; RESP 17; TEMP 36.6; O2SAT 98
--- NOTE | 2021-04-15 17:34 | PC.NURSE ---
pt is AxOx4, remains on room air, has noticeable shaking present, tick removed from upper back this shift, whole tick visualized on removal, redness noted, dressing in place, no complaints of pain or SOA this shift
[2021-04-15 19:44] VITALS: BP 136/63; PULSE 71; RESP 16; TEMP 36.7; O2SAT 98
[2021-04-16 04:00] VITALS: BP 123/50; PULSE 77; RESP 18; TEMP 37.1; O2SAT 97
[2021-04-16 05:16] VITALS: BMI 21.6
[2021-04-16 06:01] LABS: Basophils % 0.4 % (0.1-2.0); Eosinophils # 0.1 K/mm3 (0.0-0.4); Eosinophils % 1.2 % (0.1-12.0); Hemoglobin 9.9 g/dL (14.1-18.0); Lymphocytes % 11.1 % (10-50); Mean Corpuscular HGB Conc 34.1 g/dL (31.8-35.4); Mean Corpuscular Hemoglobin 30.4 pg (27.0-31.2); Mean Corpuscular Volume 89.1 fl (80-94); Mean Platelet Volume 7.6 fl (7.4-10.4); Monocytes # 0.6 K/mm3 (0.1-1.0); Monocytes % 6.5 % (1.7-9.3); Neutrophils # 7.2 K/mm3 (1.8-7.8); Neutrophils % 80.7 % (37.0-80.0); Platelet Count 252 K/mm3 (142-424); Red Blood Count 3.25 M/mm3 (4.60-6.20); Red Cell Distribution Width 15.3 % (11.5-17.5); White Blood Count 8.9 K/mm3 (4.8-10.8)
[2021-04-16 06:04] LABS: Chloride 97 mmol/L (98-107); Sodium 122 mmol/L (136-145)
[2021-04-16 06:07] LABS: Blood Urea Nitrogen 12 mg/dl (9-20); Calcium 7.6 mg/dl (8.4-10.2); Carbon Dioxide 19 mmol/L (22.0-30.0); Creatinine Clearance Estimated 54 mL/min (50-200); Estimated Glomerular Filt Rate 73 ml/min (>60); GFR (African American) 88 ML/MIN (>60); Glucose 83 mg/dl (74-100)
--- NOTE | 2021-04-16 07:25 | HMH.ACPN2 ---
Internal Medicine - PN: Subj *Date: 04/16/21 *Time: 08:37 Interval history: 75-year-old male with hyponatremia. Shaky this morning on interview, appears to be his baseline. States he still having some loose stools that began when he was admitted. Reviewed diarrhea panel, negative. No more nausea or vomiting per his report. Remains congested. This appears to be his biggest concern this morning. Reviewed labs, sodium no better this morning on normal saline infusion over the past 24 hours. Hemodynamically stable. Afebrile. Weak but ambulating with assistance to the bathroom. Exam Vital signs and Labs for Last 24 Hours: Temp Pulse Resp BP Pulse Ox 98.7 F 77 18 123/50 L 97 04/16/21 04:00 04/16/21 04:00 04/16/21 04:00 04/16/21 04:00 04/16/21 04:00 Laboratory Results - last 24 hr 04/15/21 08:35: WBC 10.9 H D, RBC 3.53 L, Hgb 10.6 L, Hct 30.5 L, MCV 86.3, MCH 30.1, MCHC 34.8, RDW 15.1, Plt Count 303, MPV 7.7, Neut % (Auto) 80.2 H, Lymph % (Auto) 12.8, [place] % (Auto) 6.1, Eos % (Auto) 0.7, Baso % (Auto) 0.3, Neut # (Auto) 8.7 H, Lymph # (Auto) 1.4, [place] # (Auto) 0.7, Eos # (Auto) 0.1, Baso # (Auto) 0.0 04/15/21 08:35: Sodium 121 L, Potassium 4.3, Chloride 93 L, Carbon Dioxide 20 L, Anion Gap 12.3, BUN 16, Creatinine 1.10, Estimated Creat Clear 48, Estimated GFR 65, Est GFR ( Amer) 79, Glucose 77, Calcium 8.1 L 04/15/21 09:40: Stl Aeromonas (PCR) Not detected, Stl C. cayetanensis PCR Not detected, Stool Rotavirus (PCR) Not detected, Stl Adenov F 40/41 PCR Not detected, Stool Astrovirus (PCR) Not detected, Stool Campylobacter PCR Not detected, Stl C.difficile Tox PCR Not detected, Stool Cryptosporidium PCR Not detected, Stl E.coli Shiga Tox PCR Not detected, Stool E coli O157 PCR Not detected, Stl Enterotoxigenic E PCR Not detected, Stool EPEC (PCR) Not detected, Stool EAEC (PCR) Not detected, Stl E. histolytica PCR Not detected, Stool Giardia [place]lia PCR Not detected, Stool Salmonella PCR Not detected, Stool Sapovirus (PCR) Not detected, Stl P. shigelloides PCR Not detected, Stl Shigella/EIEC PCR Not detected, St Y.enterocolitica PCR Not detected, Stool Vibrio (PCR) Not detected, Stl Vibrio cholerae PCR Not detected, Stl Norovirus GI/GII PCR Not detected 04/15/21 11:10: Urine Color Yellow, Urine Appearance Clear, Urine pH 6.0, Ur Specific [place] 1.020, Urine Protein Negative, Urine Glucose (UA) Negative, Urine Ketones Negative, Urine Blood 2+, Urine Nitrate Negative, Urine Bilirubin Negative, Urine Urobilinogen 0.2, Ur Leukocyte Esterase Negative, Urine RBC None, Urine WBC Occasional, Ur Squamous Epith Cells Occasional, Urine Bacteria None 04/16/21 05:30: WBC 8.9, RBC 3.25 L, Hgb 9.9 L, Hct 29.0 L, MCV 89.1, MCH 30.4, MCHC 34.1, RDW 15.3, Plt Count 252, MPV 7.6, Neut % (Auto) 80.7 H, Lymph % (Auto) 11.1, [place] % (Auto) 6.5, Eos % (Auto) 1.2, Baso % (Auto) 0.4, Neut # (Auto) 7.2, Lymph # (Auto) 1.0, [place] # (Auto) 0.6, Eos # (Auto) 0.1, Baso # (Auto) 0.0 04/16/21 05:30: Sodium 122 L, Potassium 4.0, Chloride 97 L, Carbon Dioxide 19 L, Anion Gap 10.0, BUN 12, Creatinine 1.00, Estimated Creat Clear 54, Estimated GFR 73, Est GFR ( Amer) 88, Glucose 83, Calcium 7.6 L I & O for Last 24 hours: Intake & Output 04/13/21 04/14/21 04/15/21 04/16/21 23:59 23:59 23:59 23:59 Intake Total 20 / 20 2527 / 2527 Output Total 200 / 200 100 / 100 Balance -180 / -180 2427 / 2427 Weight 59.562 kg 59 kg 60.951 kg - Constitutional mild distress, chronically ill appearing - *Routine HEENT Exam Head: Present: normocephalic Eye: Present: EOMI, PERRL ENT: Present: mucous membranes moist - *Routine Neck Exam Present: supple. Absent: lymphadenopathy - *Routine Respiratory Exam Present: CTA bilaterally Comments: Transmitted upper airway sounds - *Routine Cardiovascular Exam Present: RRR - *Routine Abdominal Exam Present: soft, normoactive bowel sounds. Absent: tenderness - *Routine Extremities Exam Absent: cyanosis,
[2021-04-16 07:46] VITALS: BP 143/71; PULSE 86; RESP 28; TEMP 36.7; O2SAT 97
[2021-04-16 08:00] VITALS: O2SAT 97
--- NOTE | 2021-04-16 08:19 | PC.NURSE ---
pt alert and oriented. port in place and infusing per order. pt states nasal congestion and causes him to feel short of air. noted to have emesis bag at bed side with what appears to be blood. pt reports that he has been coughing it up since he started chemo. vss. call light in reach. will continue
--- NOTE | 2021-04-16 12:45 | CT_ITS ---
PROCEDURE INFORMATION: Exam: CT Chest With Contrast; Diagnostic Exam date and time: 04/16/2021 12:45 PM Age: 75 years old Clinical indication: Condition or disease; Lung condition and disease; Cancer of the lung; Right; Unspecified; Patient HX: Assess lung cancer progression TECHNIQUE: Imaging protocol: Diagnostic computed tomography of the chest with contrast. Radiation optimization: All CT scans at this facility use at least one of these dose optimization techniques: automated exposure control; mA and/or kV adjustment per patient size (includes targeted exams where dose is matched to clinical indication); or iterative reconstruction. Contrast material: ISOVUE; Contrast volume: 75 ml; Contrast route: IV; COMPARISON: CT CHEST W CON 02/27/2021 9:28 AM FINDINGS: Tubes, catheters and devices: Left Port-A-Cath tip terminates in good position. Lungs: Left lung is grossly clear. A 5 mm pulmonary nodule in the right upper lobe on image 39 of series 3 is unchanged. A few other tiny pulmonary nodules on the left are also unchanged. A nodular opacity in the superior segment of the right lower lobe measures about 9 x 12 mm and is unchanged from prior. New mild, but noticeable narrowing of the bronchus intermedius. Pleural spaces: Unremarkable. No pneumothorax. No pleural effusion. Heart: Coronary artery calcifications. Aorta: Aortic valvular calcifications. 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 Lymph nodes: There has been slight interval increase of mediastinal adenopathy centered around the adarsh. See for example image 36 of series 3 today where cross-sectional dimensions are measured at 38 x 40 mm compared with image 38 of series 4 on prior were similar measurements measured 33 x 41 mm. Kidneys and ureters: Hypodensities in the kidneys are similar to prior. Bones/joints: Unremarkable. No acute fracture. Soft tissues: Unremarkable. Other findings: Mild motion limits exam. IMPRESSION: Continued, but slight interval increase of mediastinal adenopathy. This causes new, but mild narrowing of the bronchus intermedius. Other findings in the lungs appears stable.
[2021-04-16 15:47] VITALS: BP 119/80; PULSE 74; RESP 24; TEMP 36.7; O2SAT 89
--- NOTE | 2021-04-16 15:59 | PC.NURSE ---
2L NC applied at this time, o2 @ best on RA-89%
[2021-04-16 18:16] VITALS: O2SAT 93
[2021-04-16 20:00] VITALS: BP 107/72; PULSE 84; RESP 18; TEMP 36.7; O2SAT 96
[2021-04-17] VITALS (7 sets, daily range): BP systolic 96–100; BP diastolic 61–69; PULSE 74–86; RESP 16–20; TEMP 36.4–36.7; O2SAT 94–99; BMI 20.5
--- NOTE | 2021-04-17 00:56 | PC.NURSE ---
He is alert to person and place but stated the year was 1920. He continues on 1000mL fluid restriction. He was placed on 2LPM n/c during previous shift. He denies pain. He reports his last BM was on 04/16/21. Safety set and call light within reach.
[2021-04-17 05:54] LABS: Basophils % 0.3 % (0.1-2.0); Eosinophils % 0.5 % (0.1-12.0); Hematocrit 28.2 % (42.0-52.0); Hemoglobin 9.6 g/dL (14.1-18.0); Lymphocytes # 1.3 K/mm3 (0.7-4.5); Lymphocytes % 15.4 % (10-50); Mean Corpuscular HGB Conc 34.1 g/dL (31.8-35.4); Mean Corpuscular Hemoglobin 29.8 pg (27.0-31.2); Mean Corpuscular Volume 87.5 fl (80-94); Monocytes # 0.5 K/mm3 (0.1-1.0); Monocytes % 6.4 % (1.7-9.3); Neutrophils # 6.3 K/mm3 (1.8-7.8); Neutrophils % 77.3 % (37.0-80.0); Platelet Count 251 K/mm3 (142-424); Red Blood Count 3.23 M/mm3 (4.60-6.20); Red Cell Distribution Width 15.3 % (11.5-17.5); White Blood Count 8.2 K/mm3 (4.8-10.8)
[2021-04-17 05:57] LABS: Chloride 95 mmol/L (98-107); Potassium 4.1 mmoL/L (3.5-5.1); Sodium 123 mmol/L (136-145)
[2021-04-17 06:00] LABS: Blood Urea Nitrogen 13 mg/dl (9-20); Creatinine Clearance Estimated 47 mL/min (50-200); Estimated Glomerular Filt Rate 65 ml/min (>60); GFR (African American) 79 ML/MIN (>60)
[2021-04-17 06:01] LABS: Anion Gap 12.1 mEq/L (5-15); Calcium 8.1 mg/dl (8.4-10.2); Carbon Dioxide 20 mmol/L (22.0-30.0); Glucose 56 mg/dl (74-100)
--- NOTE | 2021-04-17 08:25 | HMH.ACPN2 ---
Internal Medicine - PN: Subj *Date: 04/17/21 *Time: 08:25 Interval history: Patient continues to be very weak. Has been coughing up some blood, has about a teaspoon of blood in the emesis bag by his bed. Has had an oxygen requirement overnight. Exam Vital signs and Labs for Last 24 Hours: Temp Pulse Resp BP Pulse Ox 98.1 F 76 16 96/61 L 94 L 04/17/21 04:00 04/17/21 04:00 04/17/21 04:00 04/17/21 04:00 04/17/21 04:00 Laboratory Results - last 24 hr 04/17/21 05:20: WBC 8.2, RBC 3.23 L, Hgb 9.6 L, Hct 28.2 L, MCV 87.5, MCH 29.8, MCHC 34.1, RDW 15.3, Plt Count 251, MPV 8.0, Neut % (Auto) 77.3, Lymph % (Auto) 15.4, [place] % (Auto) 6.4, Eos % (Auto) 0.5, Baso % (Auto) 0.3, Neut # (Auto) 6.3, Lymph # (Auto) 1.3, [place] # (Auto) 0.5, Eos # (Auto) 0.0, Baso # (Auto) 0.0 04/17/21 05:20: Sodium 123 L, Potassium 4.1, Chloride 95 L, Carbon Dioxide 20 L, Anion Gap 12.1, BUN 13, Creatinine 1.10, Estimated Creat Clear 47, Estimated GFR 65, Est GFR ( Amer) 79, Glucose 56 L D, Calcium 8.1 L I & O for Last 24 hours: Intake & Output 04/14/21 04/15/21 04/16/21 04/17/21 11:59 11:59 11:59 11:59 Intake Total 1827 / 1827 2616 / 2616 130 / 130 Output Total 300 / 300 Balance 1527 / 1527 2616 / 2616 130 / 130 Weight 131 lb 5 oz 131 lb 2 oz 134 lb 6 oz 127 lb 6 oz Narrative: Lungs have scattered rhonchi and some bibasilar crackles. Heart rate regular. Abdomen soft, oropharynx clear. No JVD. Neurologically the patient is weak but globally intact. Assessment and Plan (1) Lung cancer Status: Acute Category: Medical Code(s): C34.90 - Malignant neoplasm of unspecified part of unspecified bronchus or lung (2) Hyponatremia Status: Acute Category: Medical Code(s): E87.1 - Hypo-osmolality and hyponatremia (3) Dizziness Status: Acute Category: Medical Code(s): R42 - Dizziness and giddiness (4) Essential hypertension Status: Acute Category: Medical Code(s): I10 - Essential (primary) hypertension (5) Nutritional deficiency Status: Acute Category: Medical Code(s): E63.9 - Nutritional deficiency, unspecified (6) Moderate protein-calorie malnutrition Status: Chronic Category: Medical Code(s): E44.0 - Moderate protein-calorie malnutrition - Assessment and plan all Dx Assessment and Plan for all problems:: Hyponatremia slightly improved with fluid restriction. This seems to have been an ongoing problem. Await sodium and urine test and continue fluid restriction. Hemoptysis with worsening oxygen requirement-CT scan shows progression of adenopathy. Hematology/oncology consultation tomorrow. Given patient's functional decline issues and disease progression with hemoptysis consider pulmonary evaluation. Discussed CODE STATUS with patient today, he does not wish to be placed on ventilator or have CPR done, we will document this. I brought up hospice care for patient if oncology has no further strong recommendations and he is willing to consider this after oncology visit.
[2021-04-17 09:53] LABS: Sodium, Urine 131 mmol/L (Not Estab.)
--- NOTE | 2021-04-17 11:25 | HMH.PULMCON ---
*Admission Date: 04/14/21 *Reason for consult:: Hemoptysis, lung cancer *History of present illness: Ms. Whittaker is a 75-year-old male carries a diagnosis muscle lung cancer currently receiving chemotherapy recently seen oncology presented to the hospital with worsening mentation and worsening cough with hemoptysis and pulmonary was called for further management. [facility] History Medical History: Reports:: Anxiety, Arrhythmia, Cancer, Chronic Obstructive Pulmonary Disease (COPD), Hyperlipidemia, Hypertension, Lung Disease, Supraventricular Tachycardia Denies:: Diabetes Mellitus Type 1, Diabetes Mellitus Type 2, Internal Pacemaker, MRSA, Seizures *Have you ever received a pneumonia vaccine?: No *Have you received a flu vaccine this season?: No Other Medical History: Reports: Arthritis, Chemotherapy, Other. Denies: Blood Transfusion Reaction Other Surgeries: Yes: Appendectomy, Cholecystectomy, Colonoscopy, Other. No: Pacemaker Amputation: No Fractures: No - *Social History Last grade of school completed: 7th or 8th Smoking Status: Former smoker Tobacco Type: cigarettes # Packs/Day (cigarettes): 1 #Yrs smoked (if former smoker): 40 Alcohol Intake: never Substance Use Type: denies use *Occupational Status:: retired Housing: house Household Members: family *Travel in the last 8 weeks: None - Psychiatric History Pschychiatric History:: Reports:: Anxiety Family Hx:: Heart Attack ROS - Cons Reports anorexia, Reports fatigue - Card Reports shortness of breath, Reports shortness of breath with activity - Resp Respiratory: Reports chest congestion, Reports cough, Reports coughing up blood, Denies pain on inspiration, Denies pain with breathing - GI Gastrointestingal: Reports: nausea Meds Home Medications Medication Instructions Recorded Confirmed Type atorvastatin 40 mg tablet 40 mg PO DAILY 11/03/19 04/14/21 History lisinopril 20 1 tab PO DAILY tab 12/20/20 04/14/21 History mg-hydrochlorothiazide 12.5 mg tablet Loratadine [Allergy] 10 mg PO DAILY 04/14/21 04/14/21 History Allergies Allergy/AdvReac Type Severity Reaction Status Date / Time codeine [CODEINE] Allergy Unknown I-HIVES Verified 04/11/21 08:56 morphine [MORPHINE] Allergy Unknown I-HIVES Verified 04/11/21 08:56 Exam - Constitutional Constitutional:: Present: no acute distress, comfortable - HENMT Exam HENMT: Present: normocephalic, atraumatic - Eye Exam Eyes:: Present: normal appearance both eyes and related structures - Respiratory Exam Respiratory:: Present: able to speak in complete sentences, no respiratory distress, normal respiratory effort, crackles - Cardiovascular Exam Cardiac:: Present: S1, S2 - Skin Exam Skin: Present: warm - Neurological Exam Neurological: Present: awake. Absent: normal cognition, normal speech - Extremities Exam Extremities: Present: no cyanosis, no clubbing - Psychiatric Exam Psychiatric: Present: normal affect Internal Medicine - CN: Reslt - Labs CBC & Chem 7: 04/17/21 05:20 04/17/21 05:20 Labs: Short CBC 04/17/21 Range/Units 05:20 WBC 8.2 (4.8-10.8) K/mm3 Hgb 9.6 L (14.1-18.0) g/dL Hct 28.2 L (42.0-52.0) % Plt Count 251 (142-424) K/mm3 BMP 04/17/21 05:20 Sodium 123 L Potassium 4.1 Chloride 95 L Carbon Dioxide 20 L BUN 13 Creatinine 1.10 Glucose 56 L D Calcium 8.1 L Assessment and Plan (1) Lung cancer Status: Acute Category: Medical Code(s): C34.90 - Malignant neoplasm of unspecified part of unspecified bronchus or lung (2) Hyponatremia Status: Acute Category: Medical Code(s): E87.1 - Hypo-osmolality and hyponatremia (3) Dizziness Status: Acute Category: Medical Code(s): R42 - Dizziness and giddiness (4) Essential hypertension Status: Acute Category: Medical Code(s): I10 - Essential (primary) hypertension (5) Nutritional deficiency Status: Acute Category: Medical Code(s): E63.9 - Nutrition
--- NOTE | 2021-04-17 12:50 | DIET.NUTRFU ---
Addendum entered by Liliana Recio 04/19/21 10:03: Continues with poor intakes, also drinking well under fluid restriction. Na slightly improved. Supplements increased to TID, please assist pt with feedings and encourage these, he is having trouble feeding himself and requires encouragement/cueing at meal times. Original Note: Pt with moderate protein calorie malnutrition, has done fair nutritionally t/o stay. PO intakes 0-25% with pt refusing most meals. He states his congestion makes it difficult to eat as well as having decreased appetite. He does like his protein shakes, all though these have been altered to once per day and protein fortified foods added dt fluid restriction. Na slightly improved with fluid restriction, remains low. Pt has been provided with diet edu/counseling for malnutrition rt cancer and encouraged to have his sons reach out with any questions/concerns post dc. Hospice consult noted, will follow further care plans to provide MNT as indicated/appropriate.
--- NOTE | 2021-04-17 12:58 | PC.NURSE ---
RA SATS=77%, RETURNED PT TO 2L NC.
[2021-04-17 13:08] LABS: INR 1.01 (0.9-1.1); Prothrombin Time 11.9 seconds (10.1-12.5)
--- NOTE | 2021-04-17 19:53 | PC.NURSE ---
Pt has had a very poor appetite this shift. 2L NC has remained on pt this shift. Pt still coughing up red tinged, thick sputum. No other acute changes or complaints, will continue to monitor. Son said he would like to be present during [place] consult. This was passed on to dayshift nurse
--- NOTE | 2021-04-18 03:16 | PC.NURSE ---
No acute changes this shift. Pt did not sleep well. C/O of nausea x1, admin meds per MAR with favorable results. Pt remains on 2L NC with O2 stats <90%. Pt denies any pain. Call light within reach, no concerns at this time.
[2021-04-18 04:00] VITALS: BP 103/68; PULSE 87; RESP 20; TEMP 36.4; O2SAT 96
[2021-04-18 05:00] VITALS: BMI 19.8
[2021-04-18 06:20] VITALS: PULSE 93; O2SAT 96
[2021-04-18 07:57] VITALS: BP 113/72; PULSE 60; RESP 23; TEMP 36.4; O2SAT 93
--- NOTE | 2021-04-18 08:35 | P.PN_ITS ---
Internal Medicine - PN: Subj *Date: 04/18/21 *Time: 08:35 Interval history: Patient is sleeping but when awakened states that he feels somewhat better. Continues to cough up small amounts of blood. Continues to be sluggish and somewhat confused, but is able to be reoriented. Exam Vital signs and Labs for Last 24 Hours: Temp Pulse Resp BP Pulse Ox 97.6 F 60 23 113/72 93 L 04/18/21 07:57 04/18/21 07:57 04/18/21 07:57 04/18/21 07:57 04/18/21 07:57 Laboratory Results - last 24 hr 04/15/21 11:10: Urine Sodium 131 04/17/21 12:15: PT 11.9, INR 1.01 I & O for Last 24 hours: Intake & Output 04/15/21 04/16/21 04/17/21 04/18/21 11:59 11:59 11:59 11:59 Intake Total 1827 / 1827 2616 / 2616 130 / 130 60 / 60 Output Total 300 / 300 100 / 100 Balance 1527 / 1527 2616 / 2616 130 / 130 -40 / -40 Weight 131 lb 2 oz 134 lb 6 oz 127 lb 6 oz 123 lb 8 oz Narrative: Alert, oriented x2 when awakened. Oropharynx clear. Heart rate regular. Abdomen soft. Rhonchi in both chest areas, about the same as yesterday. Fluid status seems euvolemic. Assessment and Plan (1) Lung cancer Status: Acute Category: Medical Code(s): C34.90 - Malignant neoplasm of unspecified part of unspecified bronchus or lung (2) Hyponatremia Status: Acute Category: Medical Code(s): E87.1 - Hypo-osmolality and hyponatremia (3) Dizziness Status: Acute Category: Medical Code(s): R42 - Dizziness and giddiness (4) Essential hypertension Status: Acute Category: Medical Code(s): I10 - Essential (primary) hypertens ion (5) Nutritional deficiency Status: Acute Category: Medical Code(s): E63.9 - Nutritional deficiency, unspecified (6) Moderate protein-calorie malnutrition Status: Chronic Category: Medical Code(s): E44.0 - Moderate protein-calorie malnutrition - Assessment and plan all Dx Assessment and Plan for all problems:: Appreciate pulmonary input. Await oncology evaluation. 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 I brought up hospice with patient yesterday. He is willing to do's this if oncology is on board, we await input from oncology.
--- NOTE | 2021-04-18 08:47 | SW/DCPLANNER ---
Addendum entered by Mary Guaman 04/19/21 14:32: EQUIPMENT ORDERED, SON AND NIECE AT BEDSIDE TALKING WITH HOSPICE NURSE, JENNIFER.. EQUIPMENT WILL BE DELIVERED BY 3:30 THIS AFTERNOON AND SON STATED HE WILL BE TAKING HIS FATHER HOME VIA PRIVATE VEHICLE.. THIS WAS COLLABORATED TO AND HE IS IN AGREEMENT OF THE PLAN... Addendum entered by Mary Guaman 04/19/21 12:13: SENT REFERRAL TO [facility] TO COME UP TO THE HOSPITAL TO SPEAK WITH SON AND PATIENT ABOUT WHAT HOSPICE CAN PROVIDE FOR THIS PATIENT... HE SAW DR KUMAR AND SHE HAS RECOMMENDED HOSPICE PALLIATIVE CARE... IF ALL IS SET UP PATIENT MAY BE ABLE TO DISCHARGE HOME LATER IN THE DAY OR IN THE AM... Original Note: DR KUMAR [facility] IS TO SEE PATIENT IN THE AM (THURSDAY) TO SEE WHAT ELSE SHE CAN OFFER THIS PATIENT... SON HAS REQUESTED TO BE HERE WHEN SHE SEE HIM... WILL ATTEMPT TO COORDINATE THE TIMING WITH HIM.. PATIENT RESIDES WITH THE SON AND DAUGHTER..
--- NOTE | 2021-04-18 11:34 | HMH.PULMPN ---
Internal Medicine - PN: Subj *Date: 04/18/21 *Time: 11:34 Interval history: No acute respiratory vents overnight. Patient denies any new respiratory complaints. Admits decrease in frequency and quantity of his hemoptysis. Exam - Constitutional Constitutional:: Present: no acute distress, comfortable - HENMT Exam HENMT: Present: normocephalic, atraumatic - Eye Exam Eyes:: Present: normal appearance both eyes and related structures - Neck Exam Neck:: Present: normal visual inspection - Respiratory Exam Respiratory:: Present: able to speak in complete sentences, respiratory distress, wheezing - Cardiovascular Exam Cardiac:: Present: S1, S2 - GI Exam GI:: Present: soft - Skin Exam Skin: Present: warm, no rash - Neurological Exam Neurological: Present: alert, awake - Extremities Exam Extremities: Present: no cyanosis, no clubbing, no edema Assessment and Plan (1) Lung cancer Status: Acute Category: Medical Code(s): C34.90 - Malignant neoplasm of unspecified part of unspecified bronchus or lung (2) Hyponatremia Status: Acute Category: Medical Code(s): E87.1 - Hypo-osmolality and hyponatremia (3) Dizziness Status: Acute Category: Medical Code(s): R42 - Dizziness and giddiness (4) Essential hypertension Status: Acute Category: Medical Code(s): I10 - Essential (primary) hypertension (5) Nutritional deficiency Status: Acute Category: Medical Code(s): E63.9 - Nutritional deficiency, unspecified (6) Moderate protein-calorie malnutrition Status: Chronic Category: Medical Code(s): E44.0 - Moderate protein-calorie malnutrition - Assessment and plan all Dx Assessment and Plan for all problems:: #Small cell lung cancer: #Mild hemoptysis: Mr. Whittaker is a 75-year-old male prior smoker last smoked 1 and half year ago carries a diagnosis of small cell lung cancer currently following with oncology currently with disease progression and unable to tolerate chemotherapy, last seen by oncology on 04/11/2021 was admitted to the hospital with worsening weakness and dizziness and found to be hyponatremic and also worsening respiratory distress and pulmonary was called for further management. Chest CT reviewed, showed bilateral worsening lymphadenopathy and worsening nodules along with worsening compression of his bronchus intermedius. No obvious airspace disease noted. Patient today denies any new respiratory complaints. Admits significant improved with hemoptysis. He only coughed twice in the last 24 hours. Denies any worsening respiratory status with oxygen requirements remained stable per auscultation today with mild expiratory wheeze. Primary team awaiting oncology recommendation. His mentation appears to be improved from yesterday. Plan: We have also discussed in detail regarding the possibility of bronchoscopy and patient expresses complete understanding and stated that he do not want to proceed with bronchoscopy at this point of time especially given improvement in his hemoptysis and the possibility of he opting for hospice care. We will continue to monitor clinically. -Continue DuoNebs every 6 hours scheduled. - Given worsening progression of his small cell lung cancer along with possible worsening brain mets recommend follow with oncology recommendations as soon as possible to evaluate for alternative treatment options and brain imaging -We will hold off on initiating antibiotics at this point of time given no evidence of obvious airspace disease Please call pulmonary with any further questions or concerns. Thank you for involving pulmonary in this patient care.
[2021-04-18 16:00] VITALS: BP 98/69; PULSE 83; RESP 24; TEMP 36.4; O2SAT 95
--- NOTE | 2021-04-18 16:42 | PC.NURSE ---
No acute changes this shift. Pt has voiced no complaints to staff this shift. Pt has tolerated 2 L nc well with sats above 93. Pt able to ambulate to br with 1x assist. Pt currently sitting up in bed talking to visitor. Bed in low position, call light within reach. Will continue to monitor.
[2021-04-18 17:13] VITALS: PULSE 74; PULSE 89; O2SAT 96
[2021-04-18 20:00] VITALS: BP 115/69; PULSE 81; RESP 24; TEMP 36.7; O2SAT 99
--- NOTE | 2021-04-19 03:44 | PC.NURSE ---
Patient is A&Ox4. Complained of back discomfort, repositioned patient and he states that helped. complained of not being able to sleep, benadryl order obtained. Patient rested a little, after receiving the medication. Remains on 2L NC and no complaints of SOA voiced by patient. Other vitals are stable. Patient ambulated to bathroom with stand by assist. No further concerns voiced to RN.
[2021-04-19 04:00] VITALS: BP 127/81; PULSE 86; RESP 20; TEMP 36.4; O2SAT 100
[2021-04-19 05:00] VITALS: BMI 20.4
[2021-04-19 06:09] VITALS: PULSE 80; PULSE 84
[2021-04-19 08:00] VITALS: BP 127/95; PULSE 100; RESP 24; TEMP 36.8; O2SAT 100
--- NOTE | 2021-04-19 08:44 | HMH.ACPN2 ---
Internal Medicine - PN: Subj *Date: 04/19/21 *Time: 08:44 Interval history: 75-year-old male, no acute distress overnight. Tremor at baseline. Awoke with minimal verbal stimuli. Pleasant on interview. Reports he is not able to eat, but has been drinking his protein shakes. Afebrile. Hemodynamically stable. Exam Vital signs and Labs for Last 24 Hours: Temp Pulse Resp BP Pulse Ox 98.3 F 100 H 24 127/95 H 100 04/19/21 08:00 04/19/21 08:00 04/19/21 08:00 04/19/21 08:00 04/19/21 08:00 I & O for Last 24 hours: Intake & Output 04/16/21 04/17/21 04/18/21 04/19/21 23:59 23:59 23:59 23:59 Intake Total 2015 70 / 70 420 / 420 360 / 360 Output Total 100 / 100 Balance 2015 / 30 420 / 420 360 / 360 Weight 60.951 kg 57.776 kg 56.019 kg 55.537 kg Narrative: Alert, oriented x2 when awakened. Oropharynx clear. Heart rate regular. Abdomen soft. Rhonchi in both chest areas, about the same as yesterday. Fluid status seems euvolemic. tremor, worse on right, at baseline Assessment and Plan (1) Lung cancer Status: Acute Category: Medical Code(s): C34.90 - Malignant neoplasm of unspecified part of unspecified bronchus or lung (2) Hyponatremia Status: Acute Category: Medical Code(s): E87.1 - Hypo-osmolality and hyponatremia (3) Dizziness Status: Acute Category: Medical Code(s): R42 - Dizziness and giddiness (4) Essential hypertension Status: Acute Category: Medical Code(s): I10 - Essential (primary) hypertension (5) Nutritional deficiency Status: Acute Category: Medical Code(s): E63.9 - Nutritional deficiency, unspecified (6) Moderate protein-calorie malnutrition Status: Chronic Category: Medical Code(s): E44.0 - Moderate protein-calorie malnutrition - Assessment and plan all Dx Assessment and Plan for all problems:: 75-year-old male with stage IV metastatic cancer, mets to the brain. Currently monitoring sodium given diagnosis and admission for SIADH. Pulmonary consulted, appreciate their assistance Oncology consulted, anticipate their evaluation today. Goals of care to be addressed after this visit. 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 Patient is willing to pursue hospice if oncology is on board, we await input from oncology.
--- NOTE | 2021-04-19 11:45 | P.PN_ITS ---
Internal Medicine - PN: Subj *Date: 04/19/21 *Time: 11:45 Interval history: No acute respite events overnight. Patient continued to minimal hemoptysis though not worsening Exam - Constitutional Constitutional:: Present: no acute distress, comfortable - HENMT Exam HENMT: Present: normocephalic, atraumatic - Eye Exam Eyes:: Present: normal appearance both eyes and related structures - Neck Exam Neck:: Present: normal visual inspection - Respiratory Exam Respiratory:: Present: able to speak in complete sentences, no respiratory distress. Absent: wheezing - Cardiovascular Exam Cardiac:: Present: S1, S2 - GI Exam GI:: Present: soft - Skin Exam Skin: Present: warm, no rash - Neurological Exam Neurological: Present: alert, awake, normal cognition - Extremities Exam Extremities: Present: no cyanosis, no clubbing, no edema Assessment and Plan (1) Lung cancer Status: Acute Category: Medical Code(s): C34.90 - Malignant neoplasm of unspecified part of unspecified bronchus or lung (2) Hyponatremia Status: Acute Category: Medical Code(s): E87.1 - Hypo-osmolality and hypo natremia (3) Dizziness Status: Acute Category: Medical Code(s): R42 - Dizziness and giddiness (4) Essential hypertension Status: Acute Category: Medical Code(s): I10 - Essential (primary) hypertension (5) Nutritional deficiency Status: Acute Category: Medical Code(s): E63.9 - Nutritional deficiency, unspecified (6) Moderate protein-calorie malnutrition Status: Chronic Category: Medical Code(s): E44.0 - Moderate protein-calorie malnutrition - Assessment and plan all Dx Assessment and Plan for all problems:: #Small cell lung cancer: #Mild hemoptysis: Mr. Whittaker is a 75-year-old male prior smoker last smoked 1 and half year ago carries a diagnosis of small cell lung cancer currently following with oncology currently with disease progression and unable to tolerate chemotherapy, last seen by oncology on 04/11/2021 was admitted to the hospital with worsening weakness and dizziness and found to be hyponatremic and also worsening respiratory distress and pulmonary was called for further management. Chest CT reviewed, showed bilateral worsening lymphadenopathy and worsening nodules along with worsening compression of his bronchus intermedius. No obvious airspace disease noted. Patient having mild hemoptysis with no worsening respiratory status but hemoglobin stable. Platelets within normal limits. Patient admits chronic hemiparesis since she was started on chemotherapy with no worsening. He stable respiratory status unstable hemoptysis along with possibility of worsening malignancy patient opted not to pursue bronchoscopy at this point of time. Plan: -We will continue to monitor clinically. -Continue DuoNebs every 6 hours scheduled. -Follow with oncology recommendations, patient will be seen by oncology today -We will hold off on initiating antibiotics at this point of time given no evidence of obvious airspace disease Please call pulmonary with any further questions or concerns. Thank you for involving pulmonary in this patient care.
--- NOTE | 2021-04-19 11:50 | HMH.CONS ---
*Admission Date: 04/14/21 *History of present illness: 75 yo wm with h/o extensive stage small cell lung cancer with progressive disease. he has had multiple lines of chemotherapy and IO. he is admitted now with cough, sob, dizzy, weak, hyponatremia. scan shows progression. pt not eating much but drinking protein shakes. son is present. [facility] History Medical History: Reports:: Anxiety, Arrhythmia, Cancer, Chronic Obstructive Pulmonary Disease (COPD), Hyperlipidemia, Hypertension, Lung Disease, Supraventricular Tachycardia Denies:: Diabetes Mellitus Type 1, Diabetes Mellitus Type 2, Internal Pacemaker, MRSA, Seizures *Have you ever received a pneumonia vaccine?: No *Have you received a flu vaccine this season?: No Other Medical History: Reports: Arthritis, Chemotherapy, Other. Denies: Blood Transfusion Reaction Other Surgeries: Yes: Appendectomy, Cholecystectomy, Colonoscopy, Other. No: Pacemaker Amputation: No Fractures: No - *Social History Last grade of school completed: 7th or 8th Smoking Status: Former smoker Tobacco Type: cigarettes # Packs/Day (cigarettes): 1 #Yrs smoked (if former smoker): 40 Alcohol Intake: never Substance Use Type: denies use *Occupational Status:: retired Housing: house Household Members: family *Travel in the last 8 weeks: None - Psychiatric History Pschychiatric History:: Reports:: Anxiety Family Hx:: Heart Attack Meds Home Medications Medication Instructions Recorded Confirmed Type atorvastatin 40 mg tablet 40 mg PO DAILY 11/03/19 04/14/21 History lisinopril 20 1 tab PO DAILY tab 12/20/20 04/14/21 History mg-hydrochlorothiazide 12.5 mg tablet Loratadine [Allergy] 10 mg PO DAILY 04/14/21 04/14/21 History Allergies Allergy/AdvReac Type Severity Reaction Status Date / Time codeine [CODEINE] Allergy Unknown I-HIVES Verified 04/11/21 08:56 morphine [MORPHINE] Allergy Unknown I-HIVES Verified 04/11/21 08:56 Exam Vital signs and Labs for Last 24 Hours: Temp Pulse Resp BP Pulse Ox 98.3 F 100 H 24 127/95 H 100 04/19/21 08:00 04/19/21 08:00 04/19/21 08:00 04/19/21 08:00 04/19/21 08:00 I & O for Last 24 hours: Intake & Output 04/16/21 04/17/21 04/18/21 04/19/21 11:59 11:59 11:59 11:59 Intake Total 2616 / 2616 130 / 130 60 / 60 780 / 780 Output Total 100 / 100 Balance 2616 / 2616 130 / 130 -40 / -40 780 / 780 Weight 134 lb 6 oz 127 lb 6 oz 123 lb 8 oz 122 lb 7 oz Internal Medicine - CN: Reslt - Labs CBC & Chem 7: 04/17/21 05:20 04/17/21 05:20 Assessment and Plan (1) Lung cancer Status: Acute Category: Medical Code(s): C34.90 - Malignant neoplasm of unspecified part of unspecified bronchus or lung (2) Hyponatremia Status: Acute Category: Medical Code(s): E87.1 - Hypo-osmolality and hyponatremia (3) Dizziness Status: Acute Category: Medical Code(s): R42 - Dizziness and giddiness (4) Essential hypertension Status: Acute Category: Medical Code(s): I10 - Essential (primary) hypertension (5) Nutritional deficiency Status: Acute Category: Medical Code(s): E63.9 - Nutritional deficiency, unspecified (6) Moderate protein-calorie malnutrition Status: Chronic Category: Medical Code(s): E44.0 - Moderate protein-calorie malnutrition - Assessment and plan all Dx Assessment and Plan for all problems:: pt with progressive small cell lung cancer after multiple lines of chemotherapy/IO. discussed with pt and son there are no good treatment options. recommend supportive care/hospice. pt and son are agreeable to meet with hospice. hyponatremia is secondary to cancer. Kristin Mackenzie MD
[2021-04-19 11:59] LABS: Basophils % 0.1 % (0.1-2.0); Chloride 96 mmol/L (98-107); Eosinophils % 0.1 % (0.1-12.0); Hematocrit 29.2 % (42.0-52.0); Hemoglobin 10.3 g/dL (14.1-18.0); Lymphocytes # 0.7 K/mm3 (0.7-4.5); Lymphocytes % 4.7 % (10-50); Mean Corpuscular HGB Conc 35.4 g/dL (31.8-35.4); Mean Corpuscular Hemoglobin 30.3 pg (27.0-31.2); Mean Corpuscular Volume 85.6 fl (80-94); Mean Platelet Volume 7.6 fl (7.4-10.4); Monocytes # 0.5 K/mm3 (0.1-1.0); Monocytes % 3.5 % (1.7-9.3); Neutrophils # 13.1 K/mm3 (1.8-7.8); Neutrophils % 91.6 % (37.0-80.0); Platelet Count 252 K/mm3 (142-424); Red Blood Count 3.41 M/mm3 (4.60-6.20); Red Cell Distribution Width 15.4 % (11.5-17.5); Sodium 127 mmol/L (136-145); White Blood Count 14.3 K/mm3 (4.8-10.8)
[2021-04-19 12:00] LABS: Potassium 4.3 mmoL/L (3.5-5.1)
[2021-04-19 12:02] LABS: Blood Urea Nitrogen 28 mg/dl (9-20); Creatinine Clearance Estimated 33 mL/min (50-200); Estimated Glomerular Filt Rate 46 ml/min (>60); GFR (African American) 55 ML/MIN (>60)
[2021-04-19 12:03] LABS: Anion Gap 13.3 mEq/L (5-15); Calcium 8.5 mg/dl (8.4-10.2); Carbon Dioxide 22 mmol/L (22.0-30.0); Glucose 133 mg/dl (74-100); MANUAL DIFFERENTIAL MANUAL DIFFERENTIAL (MANUAL DIFF)
[2021-04-19 13:19] LABS: Eosinophils % 1 % (0-3); Lymphocytes % 10 % (10-50); Monocytes % 2 % (2-9); Neutrophils % 87 % (42-76); Total Cells Counted 100
[2021-04-19 13:20] LABS: Platelet Estimate Normal
--- NOTE | 2021-04-19 13:59 | HMH.DCSUM ---
General - General Admission date:: 04/14/21 Discharge date: 04/19/21 HPI HPI: No with lung cancer on chemotherapy who presents to the emergency department with chest pain, congestion, dizziness, shakiness. The patient reports that his last dose of chemotherapy was about 3 weeks ago. He reports that last week he became dehydrated. He was feeling better for a while but has had continued difficulty tolerating p.o. and reports he has not been sleeping due to shakiness and congestion. He states tonight he became very shaky and dizzy so came to the emergency department. He denies fever, abdominal pain, shortness of breath, dysuria, frequency, urgency, cough. He has no known sick contacts. He has not received the COVID vaccine. Above note per ER. ER work-up revealed normal CBC and chest x-ray, Covid swab was unremarkable. However he was revealed to have significant hyponatremia, with worsening sodium levels over the past several weeks. Admitted for normal saline infusion and observation as well as further diagnostic testing. Hospital Course Hospital Course: 75-year-old male admitted for hyponatremia in the setting of metastatic lung cancer. Concern for dehydration on admission as well. Initially trialed fluid resuscitation with no improvement in sodium. Transitioned to free water restriction with some gradual improvement in sodium but still quite low. Given the extent of patient's lung cancer, both pulmonology and oncology were consulted to assist in goals of care discussions as well as further treatment options. Appreciate their assistance in caring for this patient. On discussion on day of discharge, oncology met with family and patient. They discussed that his cancer has progressed even after multiple lines of chemotherapy. In this setting with metastases to the brain, recommend supportive care and hospice. Patient and son are agreeable to transitioning from curative measures to palliative/comfort measures. Hospice assessed patient on day of discharge, patient meets admission criteria. Patient to be discharged home with hospice today. Examined on day of discharge. Meds sent for comfort. Objective Vital signs: Temp Pulse Resp BP Pulse Ox 98.3 F 100 H 24 127/95 H 100 04/19/21 08:00 04/19/21 08:00 04/19/21 08:00 04/19/21 08:00 04/19/21 08:00 Narrative: Alert, oriented x2 when awakened. Oropharynx clear. Heart rate regular. Abdomen soft. Rhonchi in both chest areas, about the same as yesterday. Fluid status seems euvolemic. tremor, worse on right, at baseline Results Labs on day of discharge: Labs from last 24 hours 04/19/21 04/19/21 11:35 11:35 WBC 14.3 H D RBC 3.41 L Hgb 10.3 L Hct 29.2 L MCV 85.6 MCH 30.3 MCHC 35.4 RDW 15.4 Plt Count 252 MPV 7.6 Neut % (Auto) 91.6 H Lymph % (Auto) 4.7 L [place] % (Auto) 3.5 Eos % (Auto) 0.1 Baso % (Auto) 0.1 Neut # (Auto) 13.1 H Lymph # (Auto) 0.7 [place] # (Auto) 0.5 Eos # (Auto) 0.0 Baso # (Auto) 0.0 Total Counted 100 Neutrophils % (Manual) 87 H Lymphocytes % (Manual) 10 Monocytes % (Manual) 2 Eosinophils % (Manual) 1 Platelet Estimate Normal Sodium 127 L Potassium 4.3 Chloride 96 L Carbon Dioxide 22 Anion Gap 13.3 BUN 28 H D Creatinine 1.50 H D Estimated Creat Clear 33 Estimated GFR 46 L Est GFR ( Amer) 55 L D Glucose 133 H Calcium 8.5 DS: Diagnosis - Discharge Diagnosis (1) Lung cancer Status: Chronic (2) Hyponatremia Status: Acute (3) Dizziness Status: Acute (4) Essential hypertension Status: Acute (5) Nutritional deficiency Status: Acute (6) Moderate protein-calorie malnutrition Status: Chronic Discharge Plan - Patient Discharge Instructions ACTIVITY: Ambulate as tolerated DIET: continue same diet Patient Instructions: DI for Malnutrition - Older Adults, Dizziness, Nonvertigo, DI f
--- NOTE | 2021-04-19 14:10 | PC.NURSE ---
IS RESTING IN BED. PT'S ONLY COMPLAINT THIS SHIFT IS WEAKNESS. AMBULATED TO THE BATHROOM WITH 1 ASSIST. ALERT AND ORIENTED X4. LUNG SOUNDS HAVE SCATTERED RHONCHI. ABDOMEN SOFT/NON TENDER WITH ACTIVE BOWEL SOUNDS. PT STATES HIS LAST BOWEL MOVEMENT WAS YESTERDAY. STATES HE DOES NOT HAVE AN APPETITE BUT HAS BEEN DRINKING HIS PROTEIN SHAKES. CONSULTED TODAY AND RECOMMENDED HOSPICE CARE FOR THE PT TO KEEP PT COMFORTABLE B/C THERE WAS NOT ANY OTHER TREATMENT OPTIONS. PT AND FAMILY WERE AGREEABLE TO HOSPICE. CARE MANAGEMENT WAS NOTIFIED. HOSPICE ARRIVED AT 1320. WAS NOTIFIED ABOUT PT WANTING TO BE DISCHARGED HOME WITH HOSPICE AT 1700. PT'S SON WILL TAKE HIM HOME AND ALL OF HIS MEDICATIONS WILL NEED TO BE SENT TO [facility]. WILL FAX MEDICATION LIST TO [phone] AND WILL NOTIFY JENNIFER FROM HOSPICE SOON PATIENT IS DISCHARGED.
[2021-04-19 14:58] VITALS: BP 137/84; PULSE 86; RESP 20; TEMP 36.4; O2SAT 99
== END 2021-04-19 18:12 | disposition hospice, home (50) | DRG 644 ==
LOC: ER 07:50 → 2ND 04-15 07:22
PROVIDERS: Internal Medicine Adolescent Medicine; Internal Medicine Pulmonary Disease; Admitting Provider Family Medicine; Emergency Provider Emergency Medicine; PCP Internal Medicine Adolescent Medicine; Visit Provider Internal Medicine Adolescent Medicine
DX: E22.2 Syndrome of inappropriate secretion of antidiuretic hormone (principal); C34.90 Malignant neoplasm of unspecified part of unspecified bronchus or lung; R04.2 Hemoptysis; E44.0 Moderate protein-calorie malnutrition; C79.31 Secondary malignant neoplasm of brain; G81.90 Hemiplegia, unspecified affecting unspecified side; Z20.822 Contact with and (suspected) exposure to COVID-19; F41.9 Anxiety disorder, unspecified; J44.9 Chronic obstructive pulmonary disease, unspecified; E78.5 Hyperlipidemia, unspecified; I10 Essential (primary) hypertension; Z87.891 Personal history of nicotine dependence; R19.7 Diarrhea, unspecified; Z68.20 Body mass index [BMI] 20.0-20.9, adult; M19.90 Unspecified osteoarthritis, unspecified site
CPT/HCPCS: 71045; 71260; 80048; 80053; 81001; 84300; 84484; 85007; 85025; 85610; 87506; 93005; 94640; 94760; 94761; 96360; 96365; 96375; 99284; J1642; Q9967; U0003